=== PATIENT | female | born 1965 | race Caucasian/White ===

== ENCOUNTER 2018-12-20 12:41 | Emergency (ER) | payer MEDICARE, MEDICAID ==
[~2018-12-20] VITALS: Ht 165 cm; Wt 75.0 kg
--- NOTE | 2018-12-20 14:08 | ED GI ---
General Chief Complaint: Rect Problems Stated Complaint: BLOOD IN STOOL Nursing Triage Note: pt c/o one bloody stool this morning. pt had cardiac cath on saturday and was started on brilinta and aspirin. denies any pain at this time. Sepsis Screen: No Definite Risk Source of Information: Patient Exam Limitations: No Limitations History of Present Illness Date Seen by Provider: Dec 20, 2018 Time Seen by Provider: 13:32 Initial Comments Here with report of blood on the toilet paper after wiping after a bowel movement today. This has not happened before and she has not had persistent bleeding since. No blood in the stool but just on the toilet paper. Patient's mother reports that it seemed like quite a lot. The patient does have developmental disability. She recently underwent heart catheterization and was found to have some blockage and was started on Brilinta and aspirin. No abdominal pain. No nausea or vomiting. No other complaints. Timing/Duration: 1 Hour Severity/Quality: Mild Location: Other (rectal) Radiation: No Radiation Activities at Onset: None Modifying Factors: Worsens With Defecating; Improves With Resting Associated Symptoms: Denies Symptoms Allergies and Home Medications Allergies Coded Allergies: No Known Drug Allergies (Unverified , 12/20/18) Patient Home Medication List Home Medication List Reviewed: Yes Review of Systems Review of Systems Constitutional: see HPI; No chills, No fever Respiratory: No Symptoms Reported Cardiovascular: No Symptoms Reported Gastrointestinal: See HPI; Denies Diarrhea, Denies Nausea; Rectal Bleeding; Denies Vomiting Genitourinary: No Symptoms Reported All Other Systems Reviewed Negative Unless Noted: Yes Past Ghmummv-Uoomdl-Ysrijk Hx Past Med/Social Hx: Reviewed Nursing Past Med/Soc Hx Patient Social History Alcohol Use: Denies Use Recreational Drug Use: No Smoking Status: Never a Smoker Recent Foreign Travel: No Contact w/Someone Who Travel: No Recent Infectious Disease Expo: No Recent Hopitalizations: No Physical Abuse: No Sexual Abuse: No Mistreated: No Fear: No Immunizations Up To Date Tetanus Booster (TDap): Unknown Seasonal Allergies Seasonal Allergies: No Past Medical History Surgeries: Yes (PATENT DUCT, VENTRAL SEPTAL DEFECT) CABG, Hysterectomy Cardiac: Yes Heart Attack, High Cholesterol Family Medical History Reviewed Nursing Family Hx No Pertinent Family Hx Physical Exam Vital Signs Vital Signs - First Documented 12/20/18 13:18 Temp 36.8 Pulse 93 Resp 18 B/P (MAP) 109/70 (83) Pulse Ox 97 O2 Delivery Room Air Capillary Refill : Less Than 3 Seconds Height/Weight/BMI Height: '" Weight: lbs. oz. kg; 27.00 BMI Method: General Appearance: WD/WN, no apparent distress Neck: full range of motion, supple Respiratory: lungs clear, normal breath sounds Cardiovascular: no murmur, tachycardia Gastrointestinal: non tender, soft Extremities: non-tender, normal inspection Back: normal inspection, no CVA tenderness, no vertebral tenderness Neurologic/Psychiatric: alert, oriented x 3 Skin: normal color, warm/dry Progress/Results/Core Measures Results/Orders Lab Results Laboratory Tests Test 12/20/18 13:50 Range/Units White Blood Count 13.3 H 4.3-11.0 10^3/uL Red Blood Count 4.19 L 4.35-5.85 10^6/uL Hemoglobin 13.1 11.5-16.0 G/DL Hematocrit 40 35-52 % Mean Corpuscular Volume 96 80-99 FL Mean Corpuscular Hemoglobin 31 25-34 PG Mean Corpuscular Hemoglobin Concent 33 32-36 G/DL Red Cell Distribution Width 14.9 H 10.0-14.5 % Platelet Count 349 130-400 10^3/uL Mean Platelet Volume 11.4 H 7.4-10.4 FL Neutrophils (%) (Auto) 83 H 42-75 % Lymphocytes (%) (Auto) 10 L 12-44 % Monocytes (%) (Auto) 6 0-12 % Eosinophils (%) (Auto) 1 0-10 % Basophils (%) (Auto) 0 0-10 % Neutrophils # (Auto) 11.0 H 1.8-7.8 X 10^3 Lymphocytes # (Auto) 1.3 1.0-4.0 X 10^3 Monocytes # (Auto) 0.8 0.0-1.0 X 10^3 Eosinophils # (Auto) 0.1 0.0-0.3 10^3/uL Basophils # (Auto) 0.0 0.0-0.1 10^3/uL Sodium Level 138 135-145 MMOL/L Potassium Level 4.1 3.6-5.0 MMOL/L Chloride Level 98 98-107 MMOL/L Carbon Dioxide Level 25 21-32 MMOL/L Anion Gap 15 H 5-14 MMOL/L Blood Urea Nitrogen 17 7-18 MG/DL Creatinine 1.30 0.60-1.30 MG/DL Estimat Glomerular Filtration Rate 43 BUN/Creatinine Ratio 13 Glucose Level 98 70-105 MG/DL Calcium Level 9.8 8.5-10.1 MG/DL Corrected Calcium 9.7 8.5-10.1 MG/DL Total Bilirubin 0.9 0.1-1.0 MG/DL Aspartate Amino Transf (AST/SGOT) 22 5-34 U/L Alanine Aminotransferase (ALT/SGPT) 34 0-55 U/L Alkaline Phosphatase 157 H 40-136 U/L Total Protein 8.2 6.4-8.2 GM/DL Albumin 4.1 3.2-4.5 GM/DL My Orders Orders - JENNIFER NICHOLS MD Cbc With Automated Diff (12/20/18 14:05) Comprehensive Metabolic Panel (12/20/18 14:05) Ed Iv/Invasive Line Start (12/20/18 14:05) Lactated Ringers (Lr 1000 Ml Iv Solution (12/20/18 14:34) Lactated Ringers (Lr 1000 Ml Iv Solution (12/20/18 14:34) Medications Given in ED Current Medications Medications Dose Ordered Sig/Rama Route Start Time Stop Time Status Last Admin Dose Admin Lactated Ringer's 1,000 ml @ 0 mls/hr Q0M ONCE IV 12/20/18 14:34 12/20/18 14:35 DC 12/20/18 14:35 1,000 MLS/HR Vital Signs/I&O 12/20/18 13:18 Temp 36.8 Pulse 93 Resp 18 B/P (MAP) 109/70 (83) Pulse Ox 97 O2 Delivery Room Air Blood Pressure Mean: 83 POS Progress Progress Note : Progress Note Seen and evaluated. IV and labs ordered. LR 1 L bolus. I did do a rectal exam and there was blood at the rectum. There does appear to be a hemorrhoid on the perineal side of the rectal opening. This does seem to be the area were there is some blood. Not actively bleeding currently although there was some blood around the area that was old and some drying. No obvious findings on digital rectal exam including mass or pain. Gross blood noted that appeared to be from external. Monitor patient. 1445: Hemoglobin stable and normal. No other significant findings. She has not had persistent bleeding. She did have a small amount of blood on the toilet paper when she wiped after urinating but there was still some residual blood from earlier. She is not actively persistently bleeding. Monitor patient. 1545: No persistent bleeding currently. Discharged home with return precautions. Patient and family verbalize understanding of instructions and agreement with plan. I will send a copy of the chart to Dr. Small. Departure Impression Primary Impression: Hemorrhoids Qualified Codes: K64.9 - Unspecified hemorrhoids Disposition: HOME, SELF-CARE Condition: Improved Departure-Patient Inst. Referrals: TAY CEBALLOS MD FACP FAC CCDS NO,LOCAL PHYSICIAN (PCP) Primary Care Physician Patient Instructions: Gastrointestinal Bleeding (DC), Hemorrhoids Add. Discharge Instructions: All discharge instructions reviewed with patient and/or family. Voiced understanding. Use gentle wipes after bowel movements. You may use a sitz bath to spray the area clean. You may also just use a shower sprayer. Follow-up with Dr. Small for recheck and further evaluation. Call his office on Saturday for appointment. If bleeding worsens then return to the emergency department. You may have a little blood when wiping. If there is blood in the toilet or on the stool or your passing blood clots, return to the emergency department for further evaluation right away. Return for other concerns as needed. Copy Copies To 1: CORNELIUS SMALL TIMOTHY D MD Dec 20, 2018 14:08 POS
[2018-12-20 14:16] LABS: BASOPHILS % (AUTO) 0 % (0-10); EOSINOPHILS # (AUTO) 0.1 10^3/uL (0.0-0.3); EOSINOPHILS % (AUTO) 1 % (0-10); HEMATOCRIT 40 % (35-52); HEMOGLOBIN 13.1 G/DL (11.5-16.0); LYMPHOCYTES # (AUTO) 1.3 X 10^3 (1.0-4.0); LYMPHOCYTES % (AUTO) 10 % (12-44); MEAN CORPUSCULAR HEMOGLOBIN 31 PG (25-34); MEAN CORPUSCULAR HGB CONC 33 G/DL (32-36); MEAN CORPUSCULAR VOLUME 96 FL (80-99); MEAN PLATELET VOLUME 11.4 FL (7.4-10.4); MONOCYTES # (AUTO) 0.8 X 10^3 (0.0-1.0); MONOCYTES % (AUTO) 6 % (0-12); NEUTROPHILS % (AUTO) 83 % (42-75); PLATELET COUNT 349 10^3/uL (130-400); RED CELL DISTRIBUTION WIDTH 14.9 % (10.0-14.5); WHITE BLOOD COUNT 13.3 10^3/uL (4.3-11.0)
[2018-12-20 14:30] LABS: ALBUMIN 4.1 GM/DL (3.2-4.5); BILIRUBIN,TOTAL 0.9 MG/DL (0.1-1.0); CALCIUM 9.8 MG/DL (8.5-10.1); CREATININE SERUM 1.3 MG/DL (0.60-1.30); POTASSIUM 4.1 MMOL/L (3.6-5.0); TOTAL PROTEIN 8.2 GM/DL (6.4-8.2)
[2018-12-20] MEDS ORDERED: LACTATED RINGERS 1,000 ML IV ONE ×2 (14:34)
[2018-12-20 16:32] VITALS: BP 107/71
== END 2018-12-20 16:33 | disposition home or self-care (01) ==
LOC: ER 12:44
DX: K64.9 Unspecified hemorrhoids (principal); I25.2 Old myocardial infarction; E78.00 Pure hypercholesterolemia, unspecified; Z95.9 Presence of cardiac and vascular implant and graft, unspecified; Z90.710 Acquired absence of both cervix and uterus; Z95.1 Presence of aortocoronary bypass graft
CPT/HCPCS: 36415; 80053; 85025

== ENCOUNTER 2019-04-13 14:13 | Emergency (ER) | payer MEDICARE, MEDICAID ==
[~2019-04-13] VITALS: Ht 165.1 cm; Wt 72.1 kg
--- NOTE | 2019-04-13 14:32 | ED General ---
General Chief Complaint: Abdominal/GI Problems Stated Complaint: FEVER;VOMITING Nursing Triage Note: had a temp yesterday of 102 and was seen at [facility], no UTI or flu was found, would not eat last night or today, mom has concerns because pt has hx of [place] and is concerned for having stents in place along with a temp, is worried that pt is now having another [place] Nursing Sepsis Screen: Possible Sepsis Risk Source of Information: Patient Exam Limitations: No Limitations History of Present Illness Date Seen by Provider: Apr 13, 2019 Time Seen by Provider: 14:30 Initial Comments this 54-year-old MR patient presents to ER accompanied by mother with reports of fevers up to 102 yesterday. She was seen at [facility] last night with negative flu swab and normal urinalysis, mother is concerned that the fever is the result of a heart attack since she had one in December. She has had a significant cough according to mother. She denies chest pain Timing/Duration: 1-2 Days Severity: Moderate Associated Systoms: Cough Allergies and Home Medications Allergies Coded Allergies: No Known Drug Allergies (Unverified , 12/20/18) Patient Home Medication List Home Medication List Reviewed: Yes Review of Systems Review of Systems Constitutional: see HPI, fever EENTM: see HPI Respiratory: see HPI, cough Cardiovascular: no symptoms reported Genitourinary: no symptoms reported Musculoskeletal: no symptoms reported Skin: no symptoms reported Psychiatric/Neurological: No Symptoms Reported Past Cfevawr-Pwikya-Nshpoz Hx Patient Social History Alcohol Use: Denies Use Recreational Drug Use: No 2nd Hand Smoke Exposure: No Recent Foreign Travel: No Contact w/Someone Who Travel: No Recent Infectious Disease Expo: No Recent Hopitalizations: No Immunizations Up To Date Tetanus Booster (TDap): Unknown Seasonal Allergies Seasonal Allergies: No Past Medical History Surgeries: Yes (PATENT DUCT, VENTRAL SEPTAL DEFECT) CABG, Hysterectomy Cardiac: Yes Heart Attack, High Cholesterol Family Medical History No Pertinent Family Hx Physical Exam Vital Signs Vital Signs - First Documented 04/13/19 04/13/19 14:16 19:20 Temp 38.7 Pulse 96 Resp 18 B/P (MAP) 107/71 (83) Pulse Ox 100 O2 Delivery Room Air Capillary Refill : Less Than 3 Seconds Height, Weight, BMI Height: '" Weight: lbs. oz. kg; 26.00 BMI Method: General Appearance: No Apparent Distress, WD/WN Eyes: Bilateral Eye Normal Inspection, Bilateral Eye PERRL, Bilateral Eye EOMI HEENT: PERRL/EOMI, TMs Normal Neck: Full Range of Motion, Normal Inspection Respiratory: No Accessory Muscle Use, No Respiratory Distress Cardiovascular: Regular Rate, Rhythm, Normal Peripheral Pulses Gastrointestinal: Normal Bowel Sounds, Non Tender, Soft Extremity: Normal Inspection Neurologic/Psychiatric: Alert, Oriented x3 Skin: Normal Color, Warm/Dry Progress/Results/Core Measures Suspected Sepsis Recent Fever Within 48 Hours: Yes Infection Criteria Present: Suspected New Infection New/Unexplained Altered Menta: No Sepsis Screen: Possible Sepsis Risk SIRS Temperature: Pulse: 96 Respiratory Rate: 18 Laboratory Tests 04/13/19 14:45: White Blood Count 4.0L Blood Pressure 107 /71 Mean: 83 Laboratory Tests 04/13/19 14:45: Creatinine 1.32H, Platelet Count 149, Total Bilirubin 0.2 Results/Orders Lab Results Laboratory Tests Test 04/13/19 14:45 04/13/19 15:37 04/13/19 17:48 Range/Units White Blood Count 4.0 L 4.3-11.0 10^3/uL Red Blood Count 3.85 L 4.35-5.85 10^6/uL Hemoglobin 11.4 L 11.5-16.0 G/DL Hematocrit 36 35-52 % Mean Corpuscular Volume 94 80-99 FL Mean Corpuscular Hemoglobin 30 25-34 PG Mean Corpuscular Hemoglobin Concent 31 L 32-36 G/DL Red Cell Distribution Width 15.3 H 10.0-14.5 % Platelet Count 149 130-400 10^3/uL Mean Platelet Volume 12.2 H 7.4-10.4 FL Neutrophils (%) (Auto) 68 42-75 % Lymphocytes (%) (Auto) 25 12-44 % Monocytes (%) (Auto) 7 0-12 % Eosinophils (%) (Auto) 0 0-10 % Basophils (%) (Auto) 0 0-10 % Neutrophils # (Auto) 2.7 1.8-7.8 X 10^3 Lymphocytes # (Auto) 1.0 1.0-4.0 X 10^3 Monocytes # (Auto) 0.3 0.0-1.0 X 10^3 Eosinophils # (Auto) 0.0 0.0-0.3 10^3/uL Basophils # (Auto) 0.0 0.0-0.1 10^3/uL Sodium Level 136 135-145 MMOL/L Potassium Level 5.2 H 3.6-5.0 MMOL/L Chloride Level 105 98-107 MMOL/L Carbon Dioxide Level 23 21-32 MMOL/L Anion Gap 8 5-14 MMOL/L Blood Urea Nitrogen 17 7-18 MG/DL Creatinine 1.32 H 0.60-1.30 MG/DL Estimat Glomerular Filtration Rate 42 BUN/Creatinine Ratio 13 Glucose Level 92 70-105 MG/DL Calcium Level 9.2 8.5-10.1 MG/DL Corrected Calcium 9.1 8.5-10.1 MG/DL Total Bilirubin 0.2 0.1-1.0 MG/DL Aspartate Amino Transf (AST/SGOT) 36 H 5-34 U/L Alanine Aminotransferase (ALT/SGPT) 32 0-55 U/L Alkaline Phosphatase 154 H 40-136 U/L Troponin I < 0.028 < 0.028 <0.028 NG/ML Total Protein 7.6 6.4-8.2 GM/DL Albumin 4.1 3.2-4.5 GM/DL Urine Color YELLOW Urine Clarity CLEAR Urine pH 5.5 5-9 Urine Specific [place] 1.025 H 1.016-1.022 Urine Protein 1+ H NEGATIVE Urine Glucose (UA) NEGATIVE NEGATIVE Urine Ketones NEGATIVE NEGATIVE Urine Nitrite NEGATIVE NEGATIVE Urine Bilirubin NEGATIVE NEGATIVE Urine Urobilinogen 0.2 < = 1.0 MG/DL Urine Leukocyte Esterase NEGATIVE NEGATIVE Urine RBC (Auto) NEGATIVE NEGATIVE Urine RBC NONE /HPF Urine WBC RARE /HPF Urine Squamous Epithelial Cells 0-2 /HPF Urine Crystals PRESENT H /LPF Urine Amorphous Sediment RARE GAMALIEL URATES H /LPF Urine Bacteria FEW H /HPF Urine Casts NONE /LPF Urine Mucus SMALL H /LPF Urine Culture Indicated NO Micro Results Microbiology 04/13/19 Influenza Types A,B Antigen (ANA) - Final, Complete My Orders Orders - CANELO BHATT APRN Comprehensive Metabolic Panel (04/13/19 14:25) Troponin I (04/13/19 14:25) Ekg Tracing (04/13/19 14:25) Chest 1 View, Ap/Pa Only (04/13/19 14:25) Ua Culture If Indicated (04/13/19 14:25) Cbc With Automated Diff (04/13/19 14:59) Acetaminophen Tablet (Tylenol Tablet) (04/13/19 15:00) Ekg Tracing (04/13/19 15:55) Ns Iv 500 Ml (Sodium Chloride 0.9%) (04/13/19 16:15) Troponin I (04/13/19 17:32) Ns Iv 500 Ml (Sodium Chloride 0.9%) (04/13/19 18:30) Medications Given in ED Vital Signs/I&O Capillary Refill : Less Than 3 Seconds Blood Pressure Mean: 83 Diagnostic Imaging Diagonstic Imaging: Xray Plain Films/CT/US/NM/MRI: chest Comments NAME: GOLDIE PARKER MED REC#: [id number] PT STATUS: REG ER : 1965 PHYSICIAN: CANELO BHATT APRN ADMIT DATE: 04/13/19/ER Draft Date of Exam:04/13/19 CHEST 1 VIEW, AP/PA ONLY INDICATION: Fever and vomiting. Portable chest at 03:04 p.m. FINDINGS: Heart size and pulmonary vascularity are normal. Lungs are clear. There are no effusions or pneumothoraces. IMPRESSION: Negative chest. Dictated on workstation # [id number] Dict: 04/13/19 1516 Trans: 04/13/19 1531 [id number] Interpreted by: JENNIFER DOBSON MD Electronically signed by: NAME: GOLDIE PARKER MED REC#: [id number] PT STATUS: REG ER : 1965 PHYSICIAN: CANELO BHATT APRN ADMIT DATE: 04/13/19/ER Draft Date of Exam:04/13/19 CHEST 1 VIEW, AP/PA ONLY INDICATION: Fever and vomiting. Portable chest at 03:04 p.m. FINDINGS: Heart size and pulmonary vascularity are normal. Lungs are clear. There are no effusions or pneumothoraces. IMPRESSION: Negative chest. Dictated on workstation # [id number] Dict: 04/13/19 1516 Trans: 04/13/19 1531 [id number] Interpreted by: JENNIFER DOBSON MD Electronically signed by: Departure Communication (Admissions) [id number] have obtained a previous EKG from Kathy Jones 02/06/19 there are no significant changes on today's EKG compared to that, there is a bit more pronounced ST segment depression V4-v6. The troponin is negative. I sent the pictures to Dr. Marcano, he has reviewed them and doesn't feel this is a significant change, I will repeat a 3 hour troponin, if still negative discharged home. She does have a viral syndrome most likely is the cause of her febrile illness. Impression Primary Impression: Viral syndrome Additional Impression: Coronary artery disease Qualified Codes: I25.10 - Atherosclerotic heart disease of [place] coronary artery without angina pectoris Disposition: HOME, SELF-CARE Condition: Stable Departure-Patient Inst. Decision time for Depature: 16:12 Referrals: NO,LOCAL PHYSICIAN (PCP/Family) Primary Care Physician Patient Instructions: VIRAL SYNDROME Add. Discharge Instructions: 1. Use Tylenol for pain or fever control 2. Return to ER for any concerns All discharge instructions reviewed with patient and/or family. Voiced understanding. CANELO BHATT APRN Apr 13, 2019 14:32
[2019-04-13] MEDS ORDERED: ACETAMINOPHEN 500 MG TAB (TYLENOL) PO ONE (15:00)
[2019-04-13 15:08] LABS: BASOPHILS % (AUTO) 0 % (0-10); EOSINOPHILS % (AUTO) 0 % (0-10); HEMATOCRIT 36 % (35-52); HEMOGLOBIN 11.4 G/DL (11.5-16.0); LYMPHOCYTES % (AUTO) 25 % (12-44); MEAN CORPUSCULAR HEMOGLOBIN 30 PG (25-34); MEAN CORPUSCULAR HGB CONC 31 G/DL (32-36); MEAN CORPUSCULAR VOLUME 94 FL (80-99); MEAN PLATELET VOLUME 12.2 FL (7.4-10.4); MONOCYTES # (AUTO) 0.3 X 10^3 (0.0-1.0); MONOCYTES % (AUTO) 7 % (0-12); NEUTROPHILS # (AUTO) 2.7 X 10^3 (1.8-7.8); NEUTROPHILS % (AUTO) 68 % (42-75); PLATELET COUNT 149 10^3/uL (130-400); RED CELL DISTRIBUTION WIDTH 15.3 % (10.0-14.5)
[2019-04-13 15:22] LABS: ALANINE AMINOTRANSFERASE 32 U/L (0-55); ALBUMIN 4.1 GM/DL (3.2-4.5); ALKALINE PHOSPHATASE 154 U/L (40-136); BILIRUBIN,TOTAL 0.2 MG/DL (0.1-1.0); BUN/CREATININE RATIO 13; CALCIUM 9.2 MG/DL (8.5-10.1); CARBON DIOXIDE 23 MMOL/L (21-32); CHLORIDE 105 MMOL/L (98-107); CREATININE SERUM 1.32 MG/DL (0.60-1.30); GFR ESTIMATED 42; GLUCOSE 92 MG/DL (70-105); POTASSIUM 5.2 MMOL/L (3.6-5.0); SODIUM 136 MMOL/L (135-145); TOTAL PROTEIN 7.6 GM/DL (6.4-8.2)
--- NOTE | 2019-04-13 15:32 | Diagnostic Imaging Report ---
INDICATION: Fever and vomiting. Portable chest at 03:04 p.m. FINDINGS: Heart size and pulmonary vascularity are normal. Lungs are clear. There are no effusions or pneumothoraces. IMPRESSION: Negative chest. Dictated by: Dictated on workstation # [id number]
[2019-04-13 15:51] LABS: BILIRUBIN,URINE NEGATIVE (NEGATIVE); CLARITY,URINE CLEAR; COLOR,URINE YELLOW; GLUCOSE, URINE (UA) NEGATIVE (NEGATIVE); KETONES,URINE NEGATIVE (NEGATIVE); LEUKOCYTE ESTERASE ,URINE NEGATIVE (NEGATIVE); NITRITE,URINE NEGATIVE (NEGATIVE); PH,URINE 5.5 (5-9); PROTEIN,URINE 1+ (NEGATIVE)
[2019-04-13 16:08] LABS: BACTERIA,URINE FEW /HPF; WBC,URINE RARE /HPF
[2019-04-13 16:09] LABS: AMORPHOUS SEDIMENT,UR RARE AMOR URATES /LPF; SQUAMOUS EPITHELIAL CELL,UR 0-2 /HPF
[2019-04-13] MEDS ORDERED: NS IV 500 ML 500 ML IV SCH ×2 (16:15→18:30)
[2019-04-13 19:20] VITALS: BP 98/76
== END 2019-04-13 19:20 | disposition home or self-care (01) ==
LOC: EDUNIT# 14:13 → ER 14:14
DX: B34.9 Viral infection, unspecified (principal); I25.10 Atherosclerotic heart disease of native coronary artery without angina pectoris; I25.2 Old myocardial infarction; Z95.1 Presence of aortocoronary bypass graft
CPT/HCPCS: 36415; 71045; 80053; 81000; 84484; 85025; 87804; 93005

== ENCOUNTER 2019-04-19 12:00 | Inpatient (IN) | payer MEDICARE, MEDICAID ==
[2019-04-19] VITALS (13 sets, daily range): BP systolic 88–136; BP diastolic 50–84
[~2019-04-19] VITALS: Ht 160 cm; Wt 95.2 kg
[2019-04-19] MEDS ORDERED: APAP 325 MG/10.15 ML LIQ (TYLENOL) UDC PO STA (12:14)
[2019-04-19] MEDS ORDERED: ONDANSETRON 4 MG/2 ML (SDV) Z0FRAN IVP ONE (12:15)
[2019-04-19] MEDS ORDERED: LACTATED RINGERS IV PRN (12:15)
[2019-04-19 12:26] LABS: BASOPHILS % (AUTO) 0 % (0-10); EOSINOPHILS % (AUTO) 0 % (0-10); HEMATOCRIT 36 % (35-52); HEMOGLOBIN 11.8 G/DL (11.5-16.0); LYMPHOCYTES % (AUTO) 14 % (12-44); MEAN CORPUSCULAR HEMOGLOBIN 30 PG (25-34); MEAN CORPUSCULAR HGB CONC 33 G/DL (32-36); MEAN CORPUSCULAR VOLUME 91 FL (80-99); MEAN PLATELET VOLUME 13.2 FL (7.4-10.4); MONOCYTES # (AUTO) 0.3 X 10^3 (0.0-1.0); MONOCYTES % (AUTO) 4 % (0-12); NEUTROPHILS # (AUTO) 5.4 X 10^3 (1.8-7.8); NEUTROPHILS % (AUTO) 81 % (42-75); PLATELET COUNT 108 10^3/uL (130-400); RED CELL DISTRIBUTION WIDTH 15.6 % (10.0-14.5); WHITE BLOOD COUNT 6.6 10^3/uL (4.3-11.0)
--- NOTE | 2019-04-19 12:28 | ED General ---
General Chief Complaint: General Problems/Pain Stated Complaint: SOB/FEVER Nursing Triage Note: PT BROUGHT IN BY WHEELCHAIR BY MOM WITH COMPLAINT OF NOT EATING AND DRINKNING.PT WAS SEEN HERE LAST WEEK AND DIAGNOSED WITH VIRUS. 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 She apparently had febrile illness starting 8-9 days ago and was seen at [place]. She was diagnosed with viral illness that persisted after onset was seen here last Saturday, 6 days ago. Workup at that point also revealed only concerns for probable viral illness that was not influenza. Patient was discharged home. She's had varying levels illness throughout the week but worse over the last 2 days. Patient's mother reports that she has had nausea and vomiting with each by mouth intake over the last 24 hours and she is not even taken her morning meds because of vomiting. Patient complains of allover body pain and not feeling well. Timing/Duration: 1 Week, Changing Over Time, Getting Worse Severity: Moderate Associated Systoms: No Chest Pain; Cough, Fever/Chills; No Headaches; Nausea/Vomiting, Shortness of Air, Weakness Allergies and Home Medications Allergies Coded Allergies: No Known Drug Allergies (Unverified , 12/20/18) Patient Home Medication List Home Medication List Reviewed: Yes Review of Systems Review of Systems Constitutional: see HPI, chills, fever, weakness EENTM: see HPI, nose congestion Respiratory: cough, short of breath Cardiovascular: No chest pain, No palpitations Gastrointestinal: No abdominal pain; nausea, vomiting Genitourinary: No dysuria, No pain Musculoskeletal: muscle pain; No neck pain Skin: no symptoms reported Psychiatric/Neurological: Emotional Problems; Denies Headache All Other Systems Reviewed Negative Unless Noted: Yes Past Cjpzitf-Zyscuq-Movinp Hx Past Med/Social Hx: Reviewed Nursing Past Med/Soc Hx Patient Social History Alcohol Use: Denies Use Recreational Drug Use: No Smoking Status: Never a Smoker 2nd Hand Smoke Exposure: No Recent Foreign Travel: No Contact w/Someone Who Travel: No Recent Infectious Disease Expo: No Recent Hopitalizations: No Immunizations Up To Date Tetanus Booster (TDap): Unknown Seasonal Allergies Seasonal Allergies: No Past Medical History Surgeries: Yes (PATENT DUCT, VENTRAL SEPTAL DEFECT) CABG, Hysterectomy Cardiac: Yes Heart Attack, High Cholesterol Family Medical History Reviewed Nursing Family Hx No Pertinent Family Hx Physical Exam-Suspected Sepsis Physical Exam Vital Signs Vital Signs - First Documented 04/19/19 04/19/19 12:00 15:51 Temp 38.0 Pulse 109 Resp 20 B/P (MAP) 92/47 (62) Pulse Ox 99 O2 Delivery Room Air O2 Flow Rate 2.00 Capillary Refill : Less Than 3 Seconds Blood Pressure Mean: 62 Height, Weight, BMI Height: '" Weight: lbs. oz. kg; 28.00 BMI Method: General Appearance: WD/WN, Mild Distress HEENT: PERRL/EOMI, Pharyngeal Erythema, Other (dry mucous membranes. Bilateral rhinorrhea) Neck: Non Tender Respiratory: Crackles (few basilar), Other (coarse cough) Cardiovascular: No Murmur, Tachycardia Gastrointestinal: Non Tender, Soft Back: Normal Inspection, No CVA Tenderness, No Vertebral Tenderness Extremity: Normal Range of Motion, Non Tender Neurologic/Psychiatric: Alert, No Motor/Sensory Deficits Skin: normal color, warm/dry Focused Exam Lactate Level 04/19/19 12:10: Lactic Acid Level 2.71*H 04/19/19 16:09: Lactic Acid Level 0.79 Lactic Acid Level Laboratory Tests Test 04/19/19 16:09 Lactic Acid Level 0.79 MMOL/L (0.50-2.00) Procedures/Interventions Patient Education: Explained Benefits, Explained Risks, Pt. Ack. Understanding (family) Agreement on procedure with pt: Yes Breath Sounds per Auscultation: Crackles (. Basilar) Heart Sounds per Auscultation: Regular Airway Exam: Mouth opens >2 fingers, Neck Full Range of Motion, Visulation of Uvula Sedation Adminstration Time: 15:50 Total Time spent in CS 20 min Conscious sedation for central line placement in patient with no retardation. Central line by Dr. Howe with conscious sedation controlled by me. Initiated with Versed 2.5 mg IV and fentanyl 50 g IV. Repeat Versed 2.5 mg IV given. Tolerated sedation well without hypoxia or hypercapnia. Had continued hypotension but was controlled with Levophed. Otherwise no adverse effects. Procedure complete by 1615 Progress/Results/Core Measures Suspected Sepsis Recent Fever Within 48 Hours: No Infection Criteria Present: None New/Unexplained Altered Menta: No Sepsis Screen: No Definite Risk SIRS Temperature: Pulse: 109 Respiratory Rate: 20 Laboratory Tests 04/19/19 12:10: White Blood Count 6.6 Blood Pressure 92 /47 Mean: 62 04/19/19 12:10: Lactic Acid Level 2.71*H 04/19/19 16:09: Lactic Acid Level 0.79 Laboratory Tests 04/19/19 12:10: Creatinine 1.70H, INR Comment 1.0, Platelet Count 108L, Total Bilirubin 0.3 Results/Orders Lab Results Laboratory Tests Test 04/19/19 12:10 04/19/19 14:03 04/19/19 16:09 Range/Units White Blood Count 6.6 4.3-11.0 10^3/uL Red Blood Count 3.96 L 4.35-5.85 10^6/uL Hemoglobin 11.8 11.5-16.0 G/DL Hematocrit 36 35-52 % Mean Corpuscular Volume 91 80-99 FL Mean Corpuscular Hemoglobin 30 25-34 PG Mean Corpuscular Hemoglobin Concent 33 32-36 G/DL Red Cell Distribution Width 15.6 H 10.0-14.5 % Platelet Count 108 L 130-400 10^3/uL Mean Platelet Volume 13.2 H 7.4-10.4 FL Neutrophils (%) (Auto) 81 H 42-75 % Lymphocytes (%) (Auto) 14 12-44 % Monocytes (%) (Auto) 4 0-12 % Eosinophils (%) (Auto) 0 0-10 % Basophils (%) (Auto) 0 0-10 % Neutrophils # (Auto) 5.4 1.8-7.8 X 10^3 Lymphocytes # (Auto) 1.0 1.0-4.0 X 10^3 Monocytes # (Auto) 0.3 0.0-1.0 X 10^3 Eosinophils # (Auto) 0.0 0.0-0.3 10^3/uL Basophils # (Auto) 0.0 0.0-0.1 10^3/uL Prothrombin Time 13.0 12.2-14.7 SEC INR Comment 1.0 0.8-1.4 Activated Partial Thromboplast Time 41 H 24-35 SEC Sodium Level 136 135-145 MMOL/L Potassium Level 5.4 H 3.6-5.0 MMOL/L Chloride Level 104 98-107 MMOL/L Carbon Dioxide Level 19 L 21-32 MMOL/L Anion Gap 13 5-14 MMOL/L Blood Urea Nitrogen 28 H 7-18 MG/DL Creatinine 1.70 H 0.60-1.30 MG/DL Estimat Glomerular Filtration Rate 31 BUN/Creatinine Ratio 16 Glucose Level 108 H 70-105 MG/DL Lactic Acid Level 2.71 *H 0.79 0.50-2.00 MMOL/L Calcium Level 9.1 8.5-10.1 MG/DL Corrected Calcium 9.3 8.5-10.1 MG/DL Total Bilirubin 0.3 0.1-1.0 MG/DL Aspartate Amino Transf (AST/SGOT) 144 H 5-34 U/L Alanine Aminotransferase (ALT/SGPT) 81 H 0-55 U/L Alkaline Phosphatase 147 H 40-136 U/L Troponin I 0.073 H <0.028 NG/ML Total Protein 7.5 6.4-8.2 GM/DL Albumin 3.7 3.2-4.5 GM/DL Urine Color YELLOW Urine Clarity SL CLOUDY Urine pH 6.0 5-9 Urine Specific [place] 1.025 H 1.016-1.022 Urine Protein 2+ H NEGATIVE Urine Glucose (UA) NEGATIVE NEGATIVE Urine Ketones NEGATIVE NEGATIVE Urine Nitrite NEGATIVE NEGATIVE Urine Bilirubin NEGATIVE NEGATIVE Urine Urobilinogen 0.2 < = 1.0 MG/DL Urine Leukocyte Esterase NEGATIVE NEGATIVE Urine RBC (Auto) 1+ H NEGATIVE Urine RBC 0-2 /HPF Urine WBC NONE /HPF Urine Squamous Epithelial Cells NONE /HPF Urine Crystals NONE /LPF Urine Amorphous Sediment FEW GAMALIEL URATES H /LPF Urine Bacteria NEGATIVE /HPF Urine Casts PRESENT /LPF Urine Granular Casts 10-25 H /LPF Urine Mucus NEGATIVE /LPF Urine Culture Indicated NO Micro Results Microbiology 04/19/19 Influenza Types A,B Antigen (ANA) - Final, Complete My Orders Orders - JENNIFER NICHOLS MD Cbc With Automated Diff (04/19/19 12:14) Comprehensive Metabolic Panel (04/19/19 12:14) Blood Culture (04/19/19 12:14) Sputum Culture (04/19/19 12:14) Urinalysis (04/19/19 12:14) Urine Culture (04/19/19 12:14) Protime With Inr (04/19/19 12:14) Partial Thromboplastin Time (04/19/19 12:14) Chest 1 View, Ap/Pa Only (04/19/19 12:14) Acetaminophen Tablet (Tylenol Tablet) (04/19/19 12:15) Ed Iv/Invasive Line Start (04/19/19 12:14) Ed Iv/Invasive Line Start (04/19/19 12:14) Vital Signs Adult Sepsis Patie Q15M (04/19/19 12:14) O2 (04/19/19 12:14) Remove Rings In Anticipation O (04/19/19 12:14) Lactic Acid Analyzer (04/19/19 12:14) Influenza A And B Antigens (04/19/19 12:14) Lactated Ringers (Lr 1000 Ml Iv Solution (04/19/19 12:15) Acetaminophen Oral Solution (Tylenol Ora (04/19/19 12:14) Ondansetron Injection (Zofran Injectio (04/19/19 12:15) Acetaminophen Tablet/Caplet (Tylenol T (04/19/19 12:35) Ekg Tracing (04/19/19 13:18) Catheter(Urinary) Insert & Ass 03,15 (04/19/19 13:58) Troponin I (04/19/19 13:58) Piperacillin Sodium/Tazobactam (Zosyn Vi (04/19/19 15:15) Lactated Ringers (Lr 1000 Ml Iv Solution (04/19/19 15:30) Midazolam Injection (Versed Injection) (04/19/19 15:39) Fentanyl Injection (Sublimaze Injection (04/19/19 15:39) Norepinephrine 4 Mg/250 Ml (Norepinephri (04/19/19 15:45) Norepinephrine 4 Mg/250 Ml (Norepinephri (04/19/19 15:40) Chest 1 View, Ap/Pa Only (04/19/19 16:06) Medications Given in ED Current Medications Medications Dose Ordered Sig/Rama Route Start Time Stop Time Status Last Admin Dose Admin Acetaminophen 325 mg STK-MED ONCE .ROUTE 04/19/19 12:35 04/19/19 12:42 DC 04/19/19 12:45 650 MG Lactated Ringer's 2,163 ml @ 2,163 mls/hr PRN PRN IV 3/8/20 12:15 04/19/19 12:46 2,163 MLS/HR Ondansetron HCl 4 mg ONCE ONCE IVP 04/19/19 12:15 04/19/19 12:18 DC 04/19/19 12:43 4 MG Piperacillin Sod/ Tazobactam Sod 4.5 gm/Sodium Chloride 100 ml @ 200 mls/hr ONCE ONCE IV 04/19/19 15:15 04/19/19 15:44 DC 04/19/19 15:31 200 MLS/HR Vital Signs/I&O 04/19/19 04/19/19 04/19/19 12:00 15:51 16:05 Temp 38.0 Pulse 109 86 Resp 20 B/P (MAP) 92/47 (62) 79/48 Pulse Ox 99 91 O2 Delivery Room Air Nasal Cannula O2 Flow Rate 2.00 Capillary Refill : Less Than 3 Seconds Blood Pressure Mean: 62 Progress Note : Progress Note Seen and evaluated on arrival. Initial blood pressure less than 65. Repeat blood pressure with that greater than 65 and systolic just above 90. We will go ahead and initiate sepsis protocol order set with LR 30 milliliter per kilogram bolus. Acetaminophen 650 mg by mouth. Monitor patient. 1400: Patient had persistent episodes of hypotension with blood pressure less than 90 systolic despite fluids. She is mentating at her normal self. Mother states that since she's had her heart attack, patient has had low blood pressure in the 90s and maybe even a little lower occasionally. Heart attack occurred approximately 3-4 months ago and they are evaluating her for CABG at some point potentially but are trying to determine genetic abnormality of cardiac vessels. 1538: Patient will be admitted. Zosyn 4.5 g IV ordered. I did discuss the case with Dr. Watkins and he accepts patient for admission, inpatient status for concerns for right lower lobe pneumonia and hypotension/septic shock. Patient did receive 5 on fluid resuscitation and we will pursue Levophed administration if not improved with continued fluids. I have Discussed the case with Dr. Spencer who accepts patient in consult. I have also discussed the case with Dr. Howe who will assist with placement of central line while I'll do conscious sedation. All risk and benefits discussed with patient's family who verbally agree to sedation for central line placement. Patient require sedation due to MR status and inability to hold still while line is placed. She needs the line for septic shock and fluid volume resuscitation and/or pressors. 1615: Line placed and sedation complete. 1630: I discussed the case with Dr. Marcano and he accepts patient in consult due to the slightly elevated troponin. I have ordered request for records from [place] for heart catheter. We will continue Brilinta BID. I did discuss the placement of the line with Dr. Howe and we will go ahead and use the line. Dr. Specner was updated. Family updated and agrees with plan. 1640: Patient to go to ICU. I attest a focused exam at this time. Blood pressure improved on Levophed at 0.1 mcg/kg/m. ECG Initial ECG Impression Date: Apr 19, 2019 Initial ECG Impression Time: 13:52 Initial ECG Rate: 105 Initial ECG Rhythm: S.Tach Comment Sinus tachycardia with incomplete right bundle branch block. Anteroseptal infarct that is old and compares to 04/13/19 without significant changes. No evidence of ST elevation DC. Interpreted by me. Diagnostic Imaging Diagonstic Imaging: Xray Plain Films/CT/US/NM/MRI: chest Comments NAME: GOLDIE PARKER [facility] REC#: [id number] PT STATUS: REG ER : 1965 PHYSICIAN: JENNIFER NICHOLS MD ADMIT DATE: 04/19/19/ER Draft Date of Exam:04/19/19 CHEST 1 VIEW, AP/PA ONLY INDICATION: Not eating and drinking. Viral illness. Comparison made with the prior study from 04/13/2019. FINDINGS: Heart size is unchanged. Compared to the prior examination there are no findings to suggest edema or failure. There is no effusion. There is some questionable patchy alveolar opacity at the right lung base. Minimal right basilar atelectasis or infiltrate cannot be excluded. There is no pneumothorax. IMPRESSION: Questionable mild right basilar atelectasis or infiltrate. Dictated on workstation # [id number] Dict: 04/19/19 1304 Trans: 04/19/19 1315 [facility] [id number] Interpreted by: RENNY LOZANO MD Electronically signed by: Diagonstic Imaging: Xray Plain Films/CT/US/NM/MRI: chest Comments [facility] [place], [place] NAME: GOLDIE PARKER [facility] REC#: [id number] PT STATUS: ADM IN : 1965 PHYSICIAN: JENNIFER NICHOLS MD ADMIT DATE: 04/19/19/ICU Signed Date of Exam:04/19/19 CHEST 1 VIEW, AP/PA ONLY INDICATION: Evaluate line placement. FINDINGS: There is now a left internal jugular catheter in place. This however crosses the midline and likely has its tip in the right subclavian vein. There is some cardiomegaly and venous congestion. There is no pleural effusion or pneumothorax. Mediastinum is unremarkable. IMPRESSION: Abnormal placement of a left internal jugular central venous catheter as described. Cardiomegaly and mild central pulmonary venous congestion. Dictated by: Dictated on workstation # [id number] Dict: 04/19/19 1631 Trans: 04/19/19 1640 [facility] [id number] Interpreted by: KANA SENIOR MD Electronically signed by: KANA SENIOR MD 04/19/19 1640 Departure Communication (Admissions) Time/Spoke to Admitting Phy: 15:30 Time/Spoke to Consulting Phy: 15:38 Impression Primary Impression: Septic shock Additional Impressions: Right lower lobe pneumonia Qualified Codes: J18.1 - Lobar pneumonia, unspecified organism Volume depletion, gastrointestinal loss Disposition: ADMITTED INPATIENT Condition: Critical Admissions Decision to Admit Reason: Admit from ER (General) Decision to Admit/Date: Apr 19, 2019 Time/Decision to Admit Time: 15:30 Departure-Patient Inst. Referrals: NO,LOCAL PHYSICIAN (PCP/Family) Primary Care Physician JENNIFER NICHOLS MD Apr 19, 2019 12:28
[2019-04-19] MEDS ORDERED: ACETAMINOPHEN 325 MG TABLET ONE (12:35)
[2019-04-19 12:47] LABS: ALBUMIN 3.7 GM/DL (3.2-4.5); BILIRUBIN,TOTAL 0.3 MG/DL (0.1-1.0); CALCIUM 9.1 MG/DL (8.5-10.1); CREATININE SERUM 1.7 MG/DL (0.60-1.30); POTASSIUM 5.4 MMOL/L (3.6-5.0); TOTAL PROTEIN 7.5 GM/DL (6.4-8.2)
[2019-04-19] MEDS: ACETAMINOPHEN 500 MG TAB (TYLENOL) PO PRN (12:57)
--- NOTE | 2019-04-19 13:15 | Diagnostic Imaging Report ---
INDICATION: Not eating and drinking. Viral illness. Comparison made with the prior study from 04/13/2019. FINDINGS: Heart size is unchanged. Compared to the prior examination there are no findings to suggest edema or failure. There is no effusion. There is some questionable patchy alveolar opacity at the right lung base. Minimal right basilar atelectasis or infiltrate cannot be excluded. There is no pneumothorax. IMPRESSION: Questionable mild right basilar atelectasis or infiltrate. Dictated by: Dictated on workstation # [id number]
[2019-04-19 14:14] LABS: BILIRUBIN,URINE NEGATIVE (NEGATIVE); CLARITY,URINE SL CLOUDY; COLOR,URINE YELLOW; GLUCOSE, URINE (UA) NEGATIVE (NEGATIVE); KETONES,URINE NEGATIVE (NEGATIVE); LEUKOCYTE ESTERASE ,URINE NEGATIVE (NEGATIVE); NITRITE,URINE NEGATIVE (NEGATIVE); PROTEIN,URINE 2+ (NEGATIVE)
[2019-04-19 14:21] LABS: BACTERIA,URINE NEGATIVE /HPF; RBC,URINE 0-2 /HPF
[2019-04-19 14:22] LABS: AMORPHOUS SEDIMENT,UR FEW AMOR URATES /LPF
[2019-04-19] MEDS ORDERED: PIPERACILLIN SODIUM/TAZOBACTAM 4.5 GM in NS (IVPB) 100 ML IV ONE (15:15)
[2019-04-19] MEDS: LACTATED RINGERS 1,000 ML IV SCH ×4 (15:31→23:42)
[2019-04-19] MEDS ORDERED: fentaNYL INJECTION 100 MCG/2 ML AMP ONE (15:39)
[2019-04-19] MEDS ORDERED: MIDAZOLAM 5 MG/5 ML (VERSED) VIAL ONE (15:39)
[2019-04-19] MEDS ORDERED: NOREPINEPHRINE 4 MG/250 ML 250 ML IV ONE (15:40)
--- NOTE | 2019-04-19 15:50 | NUR ---
1550- BP 80/62, HR 98, RR 21, O2 99% RA, ECO2 33. TIME OUT PERFORMED. DR NICHOLS AND DR POP AT BEDSIDE TO PERFORM CENTRAL LINE PLACEMENT UNDER CONSCIOUS SEDATION. CONSENT SIGNED BY PTS PARENT. 1550- VERSED 2.5 MG AND FENTANYL 50MCG ADMINISTERED 1551- NC3L PLACED ON PT AT THIS TIME 1555- VERSED 2.5 MG ADMINISTERED 1555- HR 90, RR 18, BP 71/41, 100% 3LNC. 1605- HR 84, RR 20, BP 83/64, 99% 3LNC, CO2 30. LEVOPHED DRIP STARTED @ 0.1MCG/KG/MIN INITIATED PER DR NICHOLS 1615- HR 80, RR 23, BP 92/58, O2 99% NC2L. 1630- HR 79, RR 21, BP 95/59, 99% 2LNC. 1640- PT IS ALERT AND TALKING. VSS.
[2019-04-19] MEDS: NOREPINEPHRINE 4 MG/250 ML 250 ML IV SCH ×2 (16:05→22:09)
--- NOTE | 2019-04-19 16:37 | Diagnostic Imaging Report ---
INDICATION: Evaluate line placement. FINDINGS: There is now a left internal jugular catheter in place. This however crosses the midline and likely has its tip in the right subclavian vein. There is some cardiomegaly and venous congestion. There is no pleural effusion or pneumothorax. Mediastinum is unremarkable. IMPRESSION: Abnormal placement of a left internal jugular central venous catheter as described. Cardiomegaly and mild central pulmonary venous congestion. Dictated by: Dictated on workstation # [id number]
--- NOTE | 2019-04-19 18:22 | NUR ---
SEPSIS VITALS CHARTED EVERY 15 MIN BY THIS RN - UNDER VITAL SIGNS INTERVENTION
[2019-04-19] MEDS: PIPERACILLIN/TAZO 4.5 GM/NS 100 ML IV SCH ×2 (20:31)
[2019-04-19] MEDS: ENOXAPARIN 40 MG/0.4 ML (LOVENOX) SYR SQ SCH (20:32)
[2019-04-19] MEDS: TICAGRELOR 90 MG TABLET (BRILINTA) PO SCH (20:32)
[2019-04-19] MEDS: inSUlin ASPART (NovoLOG) 1 UNIT/0.01 ML (CHARGE PER UNIT) SQ SCH (20:32)
[2019-04-20] VITALS (24 sets, daily range): BP systolic 91–142; BP diastolic 55–110
[2019-04-20] MEDS: LACTATED RINGERS 1,000 ML IV SCH ×10 (00:07→23:36)
--- NOTE | 2019-04-20 00:07 | OPERATIVE REPORT ---
DATE OF SERVICE: PREOPERATIVE DIAGNOSIS: Venous insufficiency Hypotension POSTOPERATIVE DIAGNOSIS: Venous insufficiency Hypotension PROCEDURE: Insertion of triple lumen catheter with conscious sedation. SURGEON: Chetna Howe DO SUPERVISING PRODUCER: Dewey to do that conscious sedation. ANESTHESIA: Conscious sedation. BLOOD LOSS: Scant. FLUIDS: None. SPECIMENS: None. INDICATION FOR PROCEDURE: The patient is a 54-year-old female, who is hypotensive and needs IV access because of some venous insufficiency. She has mentally handicapped and could not do this without some conscious sedation. FINDINGS: The patient had a catheter placed left IJ under ultrasound guidance. PROCEDURE NOTE: After informed consent was obtained from the mother, the patient was in the ER bed, and sterilely prepped and draped in normal fashion, placed slightly Trendelenburg. She had a large internal jugular vein and able to easily see this on ultrasound and then using an 18-gauge after infiltrated the skin with local and then advanced an 18-gauge needle with ultrasound and watched it go into the vein, good flash of blood, removed the syringe and then placed a guidewire down the needle using Seldinger technique, it went in, but seems did not go all the way in, we try to get the catheter to go in, it would not go in and then actually fell out, so I was able to re-access again on the first attempt, able to get in and then placed the guidewire down the needle using Seldinger technique and then removed the needle and then over the guidewire, had dilated and then made a stab incision with a #11 blade and then advanced the catheter, able to get the catheter to advance into about 17 cm. At this point, I removed the guidewire and then sutured this in place with 3-0 silk suture on a Chriss needle leaving about 2 or 3 cm outside the skin, had placed caps on the each port, able to aspirate in the proximal and superior port, but not in the distal port, but able to flush in 3 all ports. Area was cleaned and dried and a sterile dressing was placed. The patient tolerated the procedure with conscious sedation. Did not have any difficulty. Chest x-ray was ordered. Job ID: [id number] DocumentID: [id number] Dictated Date: 04/19/2019 16:20:32 Senior Mechanical Estimator Date: 04/20/2019 00:06:46 Dictated By: CHETNA HOWE DO MET[facility] H[facility] CENTERKacie
[2019-04-20 03:59] LABS: BASOPHILS % (AUTO) 0 % (0-10); EOSINOPHILS # (AUTO) 0.1 10^3/uL (0.0-0.3); EOSINOPHILS % (AUTO) 1 % (0-10); HEMATOCRIT 29 % (35-52); HEMOGLOBIN 9.5 G/DL (11.5-16.0); LYMPHOCYTES # (AUTO) 0.7 X 10^3 (1.0-4.0); LYMPHOCYTES % (AUTO) 14 % (12-44); MEAN CORPUSCULAR HEMOGLOBIN 30 PG (25-34); MEAN CORPUSCULAR HGB CONC 33 G/DL (32-36); MEAN CORPUSCULAR VOLUME 91 FL (80-99); MEAN PLATELET VOLUME 12.4 FL (7.4-10.4); MONOCYTES # (AUTO) 0.2 X 10^3 (0.0-1.0); MONOCYTES % (AUTO) 3 % (0-12); NEUTROPHILS # (AUTO) 4.3 X 10^3 (1.8-7.8); NEUTROPHILS % (AUTO) 82 % (42-75); PLATELET COUNT 93 10^3/uL (130-400); RED CELL DISTRIBUTION WIDTH 15.4 % (10.0-14.5); WHITE BLOOD COUNT 5.2 10^3/uL (4.3-11.0)
--- NOTE | 2019-04-20 04:03 | Pulmonary Consultation ---
History of Present Illness History of Present Illness Date Seen by Provider: Apr 20, 2019 Date of Admission 04/19/19 Reason for Visit: Septic Shock, RLL Pneumonia History of Present Illness Patient is a 54 yo F with PMH of PDA, VSD, HLD, IN s/p stent 3-4 mo's ago, hx of MRSA, and Intellectual Disability, who was brought to the ED yesterday by her mother for N/V, poor food/fluid intake, and weakness x2days. Patient has 10 day history of viral illness and went to [place] ED 1 week ago. In the ED yesterday, patient was found to be in septic shock and a central line was placed. Allergies and Home Medications Allergies Coded Allergies: No Known Drug Allergies (Unverified , 12/20/18) Past Ysdaeep-Qoeimu-Jfucnf Hx Past Med/Social Hx: Reviewed Nursing Past Med/Soc Hx Patient Social History Alcohol Use: Denies Use Recreational Drug Use: No Smoking Status: Never a Smoker 2nd Hand Smoke Exposure: No Recent Foreign Travel: No Contact w/Someone Who Travel: No Recent Infectious Disease Expo: No Recent Hopitalizations: No Immunizations Up To Date Tetanus Booster (TDap): Unknown Date of Influenza Vaccine: Nov 11, 2018 Seasonal Allergies Seasonal Allergies: No Past Medical History Surgeries: Yes (PATENT DUCT, VENTRAL SEPTAL DEFECT) CABG, Hysterectomy Cardiac: Yes Heart Attack, High Cholesterol Family Medical History Reviewed Nursing Family Hx No Pertinent Family Hx Review of Systems Date Seen by Provider: Apr 20, 2019 Constitutional: Weakness; No: Chills, Sweats Eyes: No: Pain, Vision change ENT: No: Ear pain, Nose congestion Respiratory: No: Wheezing, Pleuritic Pain Cardiovascular: No: Chest Pain, Edema Gastrointestinal: Nausea, Vomiting Genitourinary: No Dysuria, No Frequency Skin: No: Rash Neurological: No: Weakness, Change in speech Sepsis Event Evaluation Height, Weight, BMI Height: '" Weight: lbs. oz. kg; 28.00 BMI Method: Exam Exam Vital Signs Date Time Temp Pulse Resp B/P (MAP) Pulse Ox O2 Delivery O2 Flow Rate FiO2 04/20/19 00:00 103 27 107/66 (80) 89 Room Air 04/20/19 00:00 90 Room Air 2.00 04/19/19 23:00 105 110/84 (93) 92 Room Air 3/8/20 22:09 97/61 04/19/19 22:00 95 23 97/61 (73) 92 Room Air 04/19/19 21:00 104 23 107/68 (81) 94 Room Air 04/19/19 20:00 98 Nasal Cannula 2.00 04/19/19 20:00 102 23 102/61 (75) 97 Room Air 04/19/19 20:00 36.4 04/19/19 19:00 91 04/19/19 19:00 91 21 88/50 (63) 94 Room Air 04/19/19 18:45 96 23 94/58 (70) 96 Room Air 04/19/19 18:30 100 31 90/57 (68) 95 Room Air 04/19/19 18:15 104 32 132/74 (93) 100 Room Air 04/19/19 18:00 90 16 136/77 (96) 100 Room Air 04/19/19 17:45 90 24 109/65 (80) 100 Room Air 04/19/19 17:30 89 25 103/61 (75) 100 Room Air 04/19/19 17:20 98 Nasal Cannula 2.00 04/19/19 17:20 100 Nasal Cannula 2.00 04/19/19 17:15 87 33 101/71 (81) 100 Room Air 04/19/19 17:08 91 04/19/19 17:00 36.6 86 25 101/71 (81) 100 Room Air 04/19/19 16:53 77 21 94/59 99 Room Air 2.00 04/19/19 16:05 86 79/48 04/19/19 15:51 91 Nasal Cannula 2.00 04/19/19 12:00 38.0 109 20 92/47 (62) 99 Room Air I & O 04/20/19 07:00 Intake Total 2563 ml Output Total 250 ml Balance 2313 ml Height & Weight Height: '" Weight: lbs. oz. kg; 28.00 BMI Method: General Appearance: WD/WN, Mild Distress HEENT: PERRL/EOMI; No Scleral Icterus (L), No Scleral Icterus (R) Neck: Non Tender, Limited Range of Motion Respiratory: Chest Non Tender, Normal Breath Sounds, Other (labored breathing) Cardiovascular: Regular Rate, Rhythm, No JVD, No Murmur, Tachycardia Capillary Refill: Less Than 3 Seconds Gastrointestinal: non tender, soft Extremity: Normal Inspection, Non Tender, No Pedal Edema Neurologic/Psychiatric: Alert, No Motor/Sensory Deficits Skin: Normal Color, Warm/Dry Lymphatic: No Adenopathy Results Lab Laboratory Tests 04/19/19 12:10 Assessment/Plan Assessment/Plan PNA, RLL -Continue Zosyn Septic Shock -Negative for Influenza -Nasal culture for MRSA given past history -Continue LR at 150ml/hr -Continue ISA Erickson MEDICAL STUDENT Apr 20, 2019 04:03
[2019-04-20 04:20] LABS: CALCIUM 7.7 MG/DL (8.5-10.1); CREATININE SERUM 1.28 MG/DL (0.60-1.30); MAGNESIUM 1.8 MG/DL (1.6-2.4); PHOSPHORUS 1.8 MG/DL (2.3-4.7); POTASSIUM 4.7 MMOL/L (3.6-5.0)
--- NOTE | 2019-04-20 04:57 | Pulmonary Consultation ---
History of Present Illness History of Present Illness Date Seen by Provider: Apr 20, 2019 Time Seen by Provider: 04:50 Date of Admission Reason for Visit: Septic Shock, RLL Pneumonia History of Present Illness 54yo presented secondary to worsening weakness and found to have hypotension. Central line was placed she was admitted to ICU. She was dx with PNA and septic shock. Troponin and LA was found to be positive. Influenza is negative. I am consulted for ICU management. Allergies and Home Medications Allergies Coded Allergies: No Known Drug Allergies (Unverified , 12/20/18) Past Olxmoex-Lrrweh-Zafbcw Hx Past Med/Social Hx: Reviewed Nursing Past Med/Soc Hx Patient Social History Alcohol Use: Denies Use Recreational Drug Use: No Smoking Status: Never a Smoker 2nd Hand Smoke Exposure: No Recent Foreign Travel: No Contact w/Someone Who Travel: No Recent Infectious Disease Expo: No Recent Hopitalizations: No Immunizations Up To Date Tetanus Booster (TDap): Unknown Date of Influenza Vaccine: Nov 11, 2018 Seasonal Allergies Seasonal Allergies: No Past Medical History Surgeries: Yes (PATENT DUCT, VENTRAL SEPTAL DEFECT) CABG, Hysterectomy Cardiac: Yes Heart Attack, High Cholesterol Family Medical History Reviewed Nursing Family Hx No Pertinent Family Hx Sepsis Event Evaluation Height, Weight, BMI Height: '" Weight: lbs. oz. kg; 28.00 BMI Method: Exam Exam Vital Signs Date Time Temp Pulse Resp B/P (MAP) Pulse Ox O2 Delivery O2 Flow Rate FiO2 04/20/19 03:47 37.2 04/20/19 03:00 112 34 91/55 (67) 96 Room Air 04/20/19 02:00 110 20 107/78 (88) 95 Room Air 04/20/19 01:00 101 32 114/65 (81) 90 Room Air 04/20/19 01:00 101 04/20/19 00:00 103 27 107/66 (80) 89 Room Air 04/20/19 00:00 90 Room Air 2.00 04/20/19 00:00 37.0 04/19/19 23:00 105 110/84 (93) 92 Room Air 04/19/19 22:09 97/61 04/19/19 22:00 95 23 97/61 (73) 92 Room Air 04/19/19 21:00 104 23 107/68 (81) 94 Room Air 04/19/19 20:00 98 Nasal Cannula 2.00 04/19/19 20:00 102 23 102/61 (75) 97 Room Air 04/19/19 20:00 36.4 04/19/19 19:00 91 04/19/19 19:00 91 21 88/50 (63) 94 Room Air 04/19/19 18:45 96 23 94/58 (70) 96 Room Air 04/19/19 18:30 100 31 90/57 (68) 95 Room Air 04/19/19 18:15 104 32 132/74 (93) 100 Room Air 04/19/19 18:00 90 16 136/77 (96) 100 Room Air 04/19/19 17:45 90 24 109/65 (80) 100 Room Air 04/19/19 17:30 89 25 103/61 (75) 100 Room Air 04/19/19 17:20 98 Nasal Cannula 2.00 04/19/19 17:20 100 Nasal Cannula 2.00 04/19/19 17:15 87 33 101/71 (81) 100 Room Air 04/19/19 17:08 91 04/19/19 17:00 36.6 86 25 101/71 (81) 100 Room Air 04/19/19 16:53 77 21 94/59 99 Room Air 2.00 04/19/19 16:05 86 79/48 04/19/19 15:51 91 Nasal Cannula 2.00 04/19/19 12:00 38.0 109 20 92/47 (62) 99 Room Air I & O 04/20/19 07:00 Intake Total 2613 ml Output Total 600 ml Balance 2013 ml Height & Weight Height: '" Weight: lbs. oz. kg; 28.00 BMI Method: General Appearance: WD/WN, Mild Distress HEENT: PERRL/EOMI; No Scleral Icterus (L), No Scleral Icterus (R) Neck: Non Tender, Limited Range of Motion Respiratory: Chest Non Tender, Normal Breath Sounds, Other (labored breathing) Cardiovascular: Regular Rate, Rhythm, No JVD, No Murmur, Tachycardia Capillary Refill: Less Than 3 Seconds Gastrointestinal: non tender, soft Extremity: Normal Inspection, Non Tender, No Pedal Edema Neurologic/Psychiatric: Alert, No Motor/Sensory Deficits Skin: Normal Color, Warm/Dry Lymphatic: No Adenopathy Results Lab Laboratory Tests 04/19/19 12:10 04/20/19 03:45 Assessment/Plan Assessment/Plan PNA wtih severe sepsis/ septic shock -- Pt has hx of MRSA -Start Solucortef -Respiratory viral panel -Currently on Zosyn. Give Vanco 1gm x 1 and await PCT. -MRSA swab - has not been collect yet -Martinez cultures pending -Check BNP and procalcitonin -Currently IVF are at 150 LR NSTEMI with CAD -Cardiology is consulted MR Hx Anemia -Monitor DVT/GI ppx -Lovenox -PronKATE Parada DO Apr 20, 2019 04:57
[2019-04-20] MEDS ORDERED: VANCOMYCIN INJECTION 1,000 MG in NS (IVPB) 250 ML IV SCH (05:00)
[2019-04-20] MEDS: PIPERACILLIN/TAZO 4.5 GM/NS 100 ML IV SCH ×6 (05:11→20:54)
[2019-04-20] MEDS ORDERED: SODIUM PHOSPHATE INJ 15 MM in D5W 100 ML IVPB 100 ML IV ONE (05:15)
[2019-04-20] MEDS: KCL 20 MEQ TAB (K-DUR) PO SCH (06:51)
[2019-04-20] MEDS: POTASSIUM CL 10MEQ/50ML IVPB 50 ML IV SCH (06:51)
[2019-04-20] MEDS: MAGNESIUM 1 GM/100 ML IVPB 100 ML IV SCH (06:51)
[2019-04-20] MEDS: inSUlin ASPART (NovoLOG) 1 UNIT/0.01 ML (CHARGE PER UNIT) SQ SCH ×4 (06:52→20:56)
[2019-04-20] MEDS: HYDROCORTISONE 100 MG/2 ML (Solu-CORTEF) VIAL IV SCH ×3 (06:58→21:15)
--- NOTE | 2019-04-20 07:14 | Diagnostic Imaging Report ---
INDICATION: Pneumonia. Sepsis. COMPARISON: 04/19/2019 FINDINGS: Single frontal radiograph view of the chest was obtained and shows persistent mild cardiomegaly. There is persistent moderate pulmonary vascular congestion as well as mild diffuse prominence of the pulmonary interstitium. Nelia B-lines are again noted bilaterally. Overall, appearance has progressed since previous exam. There is no large effusion or pneumothorax. Left-sided internal jugular central venous catheter is identified. Tip now extends inferiorly into the high SVC. Osseous structures show no acute abnormalities. IMPRESSION: 1. Cardiomegaly with sequelae of CHF as above. Interstitial pulmonary edema appears to have progressed when compared to prior exam. 2. Left internal jugular central venous catheter with tip now in the high SVC. Dictated by: Dictated on workstation # [id number]
[2019-04-20] MEDS ORDERED: PHARMACY TO DOSE IV SCH (08:00)
--- NOTE | 2019-04-20 08:26 | NUR ---
PHARMACY TO DOSE VANCOMYCIN; 20MG/KG X 72.9 KG ~ 1500 MG 04/19 @0830; MAINT DOSE 15MG/KG X 72.9 KG ~ 1 G Q12H (CrCl 46.9; Q12H FREQUENCY SINCE ICU PT & SCr TRENDING DOWN; SCr 1.28); VANCOMYCIN TROUGH DUE 04/20 @ 1930. IF TROUGH >20, HOLD 04/20 2030 DOSE
[2019-04-20] MEDS ORDERED: VANCOMYCIN 1500 MG/NS 500 ML IVPB IV NR ×2 (08:30)
[2019-04-20] MEDS: TICAGRELOR 90 MG TABLET (BRILINTA) PO SCH ×2 (08:45→20:55)
[2019-04-20] MEDS: PANTOPRAZOLE 40 MG (PROTONIX) VIAL IV SCH (08:45)
--- NOTE | 2019-04-20 09:02 | History & Physical-Hospitalist ---
History of Present Illness HPI/Chief Complaint Pt is a 54yoCF with a PMH of intellectual disability, CAD s/p recent stent placement in [place], CHF, HTN who presented to the ER due to fever. She is unable to provide any history. Her mother is at bedside and states that she has been sick for the last week and was seen at multiple clinics regarding this and was told it was viral. Her fever continued and yesterday she appeared worse to her mom who brought her to the ER for evaluation and she was found to have septic schok due to pneumonia. She was admitted to the ICU for pressors and IV abx. She has improved over night and is now off pressors. Patient herself has no complaints and happily tells me about her 6 brothers and 1 sister. Source: patient Date Seen 04/20/19 Time Seen by a Provider: 09:01 Attending Physician Samina Watkins MD PCP No,Local Physician Referring Physician Date of Admission Apr 19, 2019 at 15:38 Home Medications & Allergies Home Medications Reviewed patient Home Medication Reconciliation performed by pharmacy medication reconciliations biomedical technician and/or nursing. Patients Allergies have been reviewed. Allergies Allergies Coded Allergies No Known Drug Allergies (Yhvowubiwd41/9/19) Past Ekjevnd-Igudyz-Dtgfji Hx Past Med/Social Hx: Reviewed Nursing Past Med/Soc Hx Patient Social History Alcohol Use: Denies Use Recreational Drug Use: No Smoking Status: Never a Smoker 2nd Hand Smoke Exposure: No Recent Foreign Travel: No Contact w/other who traveled: No Recent Hopitalizations: No Recent Infectious Disease Expo: No Immunizations Up To Date Tetanus Booster (TDap): Unknown Date of Influenza Vaccine: Nov 11, 2018 Seasonal Allergies Seasonal Allergies: No Past Medical History Surgeries: CABG, Hysterectomy Cardiac: Heart Attack, High Cholesterol Family History Reviewed Nursing Family Hx No Pertinent Family Hx Review of Systems ROS-Unable to Obtain: limited due intellectual delay Constitutional: fever EENTM: no symptoms reported, hearing loss Respiratory: no symptoms reported Cardiovascular: no symptoms reported Gastrointestinal: no symptoms reported Genitourinary: no symptoms reported Musculoskeletal: no symptoms reported Skin: no symptoms reported Psychiatric/Neurological: No Symptoms Reported Physical Exam Physical Exam Vital Signs Vital Signs - First Documented 04/19/19 04/19/19 12:00 15:51 Temp 38.0 Pulse 109 Resp 20 B/P (MAP) 92/47 (62) Pulse Ox 99 O2 Delivery Room Air O2 Flow Rate 2.00 Capillary Refill : Less Than 3 Seconds Height, Weight, BMI Height: '" Weight: lbs. oz. kg; 28.00 BMI Method: General Appearance: No Apparent Distress, Chronically ill HEENT: No Scleral Icterus (L), No Scleral Icterus (R); Other (dry mucus membranes) Neck: Supple Respiratory: Lungs Clear, No Respiratory Distress Cardiovascular: Regular Rate, Rhythm, No Murmur Gastrointestinal: Normal Bowel Sounds, Non Tender, Soft Extremity: Normal Capillary Refill, No Calf Tenderness, No Pedal Edema Neurologic/Psychiatric: Alert, Other (oriented to person and place, pleasant) Skin: Normal Color, Warm/Dry Results Results/Procedures Labs Laboratory Tests 04/19/19 12:10 04/20/19 03:45 Patient resulted labs reviewed. Imaging: Reviewed Imaging Report Assessment/Plan Admission Diagnosis Septic Shock Admission Status: Inpatient Order (span 2 midnights) Reason for Inpatient Admission: IV abx, pressors- critically ill Assessment and Plan Septic Shock RLL Pneumonia Currently off pressors Pulm consulted, appreciate recs Await cultures Focused exam done in ER Vancomycin and Zosyn CAD CHF Elevated troponin Recent stent placed in December Remains on ASA and Plavix Cardiology consulted, appreciate recs Thrombocytopenia Trend Normal INR Anemia Likely dilutional trend Clinical Quality Measures DVT/VTE Risk/Contraindication: Risk Factor Score Per Nursin RFS Level Per Nursing on Admit: 4+=Very High JAMISON DICK MD Apr 20, 2019 09:02
--- NOTE | 2019-04-20 09:14 | Consultation-Cardiology ---
HPI-Cardiology Cardiology Consultation: Date of Consultation 04/20/19 Time Seen by a Provider: 08:30 Date of Admission 04-19-2019 Attending Physician Samina Watkins MD Admitting Physician No,Local Physician Consulting Physician Conor Marcano MD HPI: Chief Complaint: Chest pain Ms. Parker is a 54 year old female admitted to ICU 10 from the ED. She is mentally delayed. Her mother is at the bedside. She reports the pt lives at a facility during the week and comes home on the weekends. She reports she has had a fever with occ cough for over a week. She reports she was seen by her PA in [place] and diagnosed with a viral illness and instructions to treat with Tylenol. She reports that was on a Saturday. She was then seen at this ED last Saturday d/t fever. She was evaluated and viral illness was again diagnosed. She states she then went back to the facility and again on Saturday she continued to run a fever. She reports by Saturday she was c/o nausea, decreased responsiveness, chilling, fever. She was then brought to the ED here. The mother denies pt c/o any CP. She states her primary gum worker is Dr. Santacruz with [facility]. She reports she has had a recent stress test and was told it was abnormal, but they are waiting for a cardiac CT to be done at [facility]. She reports following her CT in Dec 2018 she did wear a Life Vest fro approx 6 weeks, but then it was removed by Dr. Santacruz. She states the patient has not missed any doses of her medications, except on Saturday. Goldie is cooperative. She denies any c/o pain. She answers only a few questions and then closes her eyes. Review of Systems-Cardiology Review of Systems Other comments D/t patients mentation the ROS to the extent it could be obtained is as per HPI All Other Systems Reviewed Negative Unless Noted: Yes JEK-Krxnuq-Axlyeh Hx Patient Social History Alcohol Use: Denies Use Recreational Drug Use: No Smoking Status: Never a Smoker 2nd Hand Smoke Exposure: No Recent Foreign Travel: No Recent Infectious Disease Expo: No Hospitalization with Isolation: Denies Immunizations Up To Date Tetanus Booster (TDap): Unknown Date of Influenza Vaccine: Nov 11, 2018 Past Medical History PMH As described under Assessment. Family Medical History Family Medical History: Reported family h/o father and all of his siblings having CAD. Reported that her father has had CABG. Allergies and Home Medications Allergies Coded Allergies: No Known Drug Allergies (Unverified , 12/20/18) Home Medications Aspirin 81 Mg Tablet.dr, 81 MG PO DAILY, (Reported) Docusate Sodium 100 Mg Capsule, 100 MG PO BID, (Reported) Furosemide 40 Mg Tablet, 40 MG PO DAILY, (Reported) Lisinopril 2.5 Mg Tablet, 2.5 MG PO HS, (Reported) Polyethylene Glycol 3350 17 Gm Powd.pack, 17 GM PO DAILY, (Reported) Potassium Chloride 10 Meq Capsule.er, 10 MEQ PO DAILY, (Reported) Simvastatin 20 Mg Tablet, 20 MG PO HS, (Reported) Ticagrelor 90 Mg Tablet, 90 MG PO BID, (Reported) Physical Exam-Cardiology Physical Exam Vital Signs/I&O Capillary Refill : Less Than 3 Seconds Constitutional: well-developed, well-nourished, other (awake and alert, answers some questions) HEENT: PERRL, other (mouth and lips are very dry) Neck: No carotid bruit; carotid pulses are 2 + bilaterally Respiratory: No accessory muscle use, No respiratory distress; chest expansion is symmetric, chest is bilaterally symmetric, other (diminished air entry lower lobes with poor inspiratory effort) Cardiovascular: regular rate-rhythm; No JVD; S1 and S2, systolic murmur Gastrointestinal: soft, round, audible bowel sounds Genital/Rectal: other (indwelling urinart catheter to DD, clear, yellow) Extremities: no lower extremity edema bilateral Neurologic/Psychiatric: alert (oriented to self), other (moves all extremities) Skin: No rash on exposed areas, No ulcerations on exposed areas Data Review Labs Microbiology 04/23/19 Mycobacterial Culture - Preliminary, Resulted 04/22/19 Urine Culture - Final, Complete NO GROWTH 04/19/19 Blood Culture - Final, Complete No growth Radiology NAME: GOLDIE PARKER [facility] REC#: [id number] PT STATUS: ADM IN : 1965 PHYSICIAN: KATE ROSARIO DO ADMIT DATE: 04/19/19/ICU Draft Date of Exam:04/20/19 CHEST 1 VIEW, AP/PA ONLY INDICATION: Pneumonia. Sepsis. COMPARISON: 04/19/2019 FINDINGS: Single frontal radiograph view of the chest was obtained and shows persistent mild cardiomegaly. There is persistent moderate pulmonary vascular congestion as well as mild diffuse prominence of the pulmonary interstitium. Nelia B-lines are again noted bilaterally. Overall, appearance has progressed since previous exam. There is no large effusion or pneumothorax. Left-sided internal jugular central venous catheter is identified. Tip now extends inferiorly into the high SVC. Osseous structures show no acute abnormalities. IMPRESSION: 1. Cardiomegaly with sequelae of CHF as above. Interstitial pulmonary edema appears to have progressed when compared to prior exam. 2. Left internal jugular central venous catheter with tip now in the high SVC. Dictated on workstation # [id number] Dict: 04/20/19 0710 Trans: 04/20/1913 [id number] Interpreted by: ALBERTINA HANNA MD Electronically signed by: A/P-Cardiology Assessment/Admission Diagnosis Pneumonia with sepsis - management per medical/pulmonary services Acute on chronic systolic CHF - treat with diuretics Mildly elevated troponin, likely Type 2 CT d/t sepsis and hypotension ICM - document LVEF of Dec 2018 at [facility] by Dr. Martin is 20%. Currently being managed by Dr. Santacruz at [place], [place] H/O NSTEMI in Dec 2018 - cardiac cath of 2018 at [facility] by Dr. 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 80% ostial occlusion of RCA with Synergy stent, 3.0 x 20 mm, placed. Elevated LVEDP H/O VSD and PDA repair as a child JO likely d/t volume depletion, hypotension and sepsis - improved Reported h/o pulmonary hypertension Reported intolerance to BB (d/t hypotension in the past, per mother's report) Mild thrombocytopenia of undetermined etiology - medical services managing Family h/o CAD (father) Discussion and Recomendations Complex management issue Pneumonia with sepsis - management per medical services Mildly elevated troponin likely Type 2 CT d/t sepsis and hypotension H/O CAD with recent stenting - continue Brilinta and ASA Acute on chronic systolic CHF - treat with diuretics Acute kidney injury likely secondary to sepsis, hypotension and volume depletion - improved ICM - echocardiogram to eval LVEF Records from [facility] We have discussed her plan of care and cardiac issues with her mother We have discussed her case with Dr. Kelly We would like to thank Dr. Kelly for this consult Further recs will be based on her hospital course Clinical Quality Measures DVT/VTE Risk/Contraindication: Risk Factor Score Per Nursin RFS Level Per Nursing on Admit: 4+=Very High KEVIN GALAVIZ Apr 20, 2019 09:14
[2019-04-20] MEDS ORDERED: ASPIRIN 81 MG CHEW (CHILDREN'S ASA) PO NR (09:15)
[2019-04-20] MEDS: NOREPINEPHRINE 4 MG/250 ML 250 ML IV SCH ×2 (10:17→20:56)
--- NOTE | 2019-04-20 11:00 | NUR ---
Pt is [facility] but currently on liquid diet. Chaplain holliday w/ pt.
--- NOTE | 2019-04-20 13:02 | Consultation-Cardiology ---
HPI-Cardiology Cardiology Consultation: Date of Consultation 04/20/19 Time Seen by a Provider: 09:10 Date of Admission Attending Physician Samina Watkins MD Admitting Physician No,Local Physician Consulting Physician TAY CEBALLOS MD, MA, FACP, FACC, FSCAI, CCDS HPI: Chief Complaint: Reason for Cardiology consultation: H/o CAD HPI Ms. Mcdaniels is a 54 year old female admitted to ICU 10 from the ED. She is mentally delayed. Her mother is at the bedside. She reports the pt lives at a facility during the week and comes home on the weekends. She reports she has had a fever with occ cough for over a week. She reports she was seen by her PA in [place] and diagnosed with a viral illness and instructions to treat with Tylenol. She reports that was on a Saturday. She was then seen at this ED last Saturday d/t fever. She was evaluated and viral illness was again diagnosed. She states she then went back to the facility and again on Saturday she continued to run a fever. She reports by Saturday she was c/o nausea, decreased responsiveness, chilling, fever. She was then brought to the ED here. The mother denies pt c/o any CP. She states her primary home sales service professional is Dr. Santacruz with [facility]. She reports she has had a recent stress test and was told it was abnormal, but they are waiting for a cardiac CT to be done at [facility]. She reports following her NC in Dec 2018 she did wear a Life Vest fro approx 6 weeks, but then it was removed by Dr. Santacruz. She states the patient has not missed any doses of her medications, except on Saturday. Alyssa is cooperative. She denies any c/o pain. She answers only a few questions and then closes her eyes. Review of Systems-Cardiology Review of Systems Constitutional: other (Pt is not able to provide ROS. To the extent it could be obtained from her mother is noted above) All Other Systems Reviewed Negative Unless Noted: Yes LBF-[id number]-Oafekj Hx Patient Social History Alcohol Use: Denies Use Recreational Drug Use: No Smoking Status: Never a Smoker 2nd Hand Smoke Exposure: No Recent Foreign Travel: No Recent Infectious Disease Expo: No Hospitalization with Isolation: Denies Immunizations Up To Date Tetanus Booster (TDap): Unknown Date of Influenza Vaccine: Nov 11, 2018 Past Medical History PMH As described under Assessment. Family Medical History Family Medical History: Reported family h/o father and all of his siblings having CAD. Reported that her father has had CABG. Allergies and Home Medications Allergies Coded Allergies: No Known Drug Allergies (Unverified , 12/20/18) Patient Home Medication List Home Medication List Reviewed: Yes Physical Exam-Cardiology Physical Exam Vital Signs/I&O 04/20/19 04/20/19 04/20/19 04/20/19 01:00 01:00 02:00 03:00 Pulse 101 101 110 112 Resp 32 20 34 B/P (MAP) 114/65 (81) 107/78 (88) 91/55 (67) Pulse Ox 90 95 96 O2 Delivery Room Air Room Air Room Air 04/20/19 04/20/19 04/20/19 04/20/19 03:47 04:00 04:00 05:15 Temp 37.2 Pulse 104 104 Resp 20 30 B/P (MAP) 102/62 (75) 92/65 (74) Pulse Ox 98 90 96 O2 Delivery Room Air Room Air Room Air O2 Flow Rate 2.00 04/20/19 04/20/19 04/20/19 04/20/19 06:00 07:00 07:00 07:14 Temp 37.0 Pulse 102 109 105 Resp 28 36 B/P (MAP) 99/61 (74) 98/60 (73) Pulse Ox 93 93 O2 Delivery Room Air Nasal Cannula O2 Flow Rate 3.00 04/20/19 04/20/19 04/20/19 04/20/19 08:00 08:00 09:00 10:00 Pulse 105 120 109 Resp 30 33 32 B/P (MAP) 99/62 (74) 98/86 (90) 100/67 (78) Pulse Ox 94 95 94 93 O2 Delivery Room Air Nasal Cannula Nasal Cannula Nasal Cannula O2 Flow Rate 3.00 3.00 3.00 3.00 04/20/19 04/20/19 04/20/19 11:00 11:16 12:00 Temp 36.6 Pulse 115 115 Resp 41 32 B/P (MAP) 117/110 (112) 126/80 (95) Pulse Ox 91 94 O2 Delivery Nasal Cannula Nasal Cannula O2 Flow Rate 3.00 3.00 04/20/19 00:00 Intake Total 3563 ml Output Total 250 ml Balance 3313 ml Capillary Refill : Less Than 3 Seconds Constitutional: well-developed, well-nourished, other (awake and alert, answers some questions) HEENT: PERRL, other (mouth and lips are very dry) Neck: No carotid bruit; carotid pulses are 2 + bilaterally Respiratory: No accessory muscle use, No respiratory distress; chest expansion is symmetric, chest is bilaterally symmetric, other (diminished air entry lower lobes with poor inspiratory effort) Cardiovascular: regular rate-rhythm; No JVD; S1 and S2, systolic murmur Gastrointestinal: soft, round, audible bowel sounds Genital/Rectal: other (indwelling urinart catheter to DD, clear, yellow) Extremities: no lower extremity edema bilateral Neurologic/Psychiatric: alert (oriented to self), other (moves all extremities) Skin: No rash on exposed areas, No ulcerations on exposed areas Data Review Labs Laboratory Tests 04/19/19 14:03: Urine Color YELLOW, Urine Clarity SL CLOUDY, Urine pH 6.0, Urine Specific [place] 1.025H, Urine Protein 2+H, Urine Glucose (UA) NEGATIVE, Urine Ketones NEGATIVE, Urine Nitrite NEGATIVE, Urine Bilirubin NEGATIVE, Urine Urobilinogen 0.2, Urine Leukocyte Esterase NEGATIVE, Urine RBC (Auto) 1+H, Urine RBC 0-2, Urine WBC NONE, Urine Squamous Epithelial Cells NONE, Urine Crystals NONE, Urine Amorphous Sediment FEW GAMALIEL URATESH, Urine Bacteria NEGATIVE, Urine Casts PRESENT, Urine Granular Casts 10-25H, Urine Mucus NEGATIVE, Urine Culture In dicated NO 04/19/19 16:09: Lactic Acid Level 0.79 04/19/19 20:24: Glucometer 139H 04/20/19 03:45: White Blood Count 5.2, Red Blood Count 3.19L, Hemoglobin 9.5L, Hematocrit 29L, Mean Corpuscular Volume 91, Mean Corpuscular Hemoglobin 30, Mean Corpuscular Hemoglobin Concent 33, Red Cell Distribution Width 15.4H, Platelet Count 93L, Mean Platelet Volume 12.4H, Neutrophils (%) (Auto) 82H, Lymphocytes (%) (Auto) 14, Monocytes (%) (Auto) 3, Eosinophils (%) (Auto) 1, Basophils (%) (Auto) 0, Neutrophils # (Auto) 4.3, Lymphocytes # (Auto) 0.7L, Monocytes # (Auto) 0.2, Eosinophils # (Auto) 0.1, Basophils # (Auto) 0.0, Sodium Level 134L, Potassium Level 4.7, Chloride Level 106, Carbon Dioxide Level 21, Anion Gap 7, Blood Urea Nitrogen 19H, Creatinine 1.28, Estimat Glomerular Filtration Rate 43, BUN/Creatinine Ratio 15, Glucose Level 87, Calcium Level 7.7L, Phosphorus Level 1.8L, Magnesium Level 1.8 04/20/19 05:24: B-Type Natriuretic Peptide 1317.0H, Procalcitonin 1.26H 04/20/19 11:38: Glucometer 124H Microbiology 04/19/19 Influenza Types A,B Antigen (ANA) - Final, Complete A/P-Cardiology Assessment/Admission Diagnosis Pneumonia with sepsis - management per medical/pulmonary services Acute on chronic systolic CHF - treat with diuretics Mildly elevated troponin, likely Type 2 NC d/t sepsis and hypotension ICM - document LVEF of Dec 2018 at [facility] by Dr. Martin is 20%. Currently being managed by Dr. Santacruz at [place], [place] H/O NSTEMI in Dec 2018 - cardiac cath of Dec 17, 2018 at [facility] by Dr. 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 80% ostial occlusion of RCA with Synergy stent, 3.0 x 20 mm, placed. Elevated LVEDP H/O VSD and PDA repair as a child JO likely d/t volume depletion, hypotension and sepsis - improved Reported h/o pulmonary hypertension Reported intolerance to BB (d/t hypotension in the past, per mother's report) Mild thrombocytopenia of undetermined etiology - Medical services managing Family h/o CAD (father) Discussion and Recomendations Complex management due to multiple comorbidities Pneumonia with sepsis - management per medical services H/O CAD with recent stenting - continue Brilinta and ASA Acute on chronic systolic CHF - treat with diuretics Acute kidney injury likely secondary to sepsis, hypotension and volume depletion - improved ICM - echocardiogram to eval LVEF Records from [facility] We have discussed her plan of care and cardiac issues with her mother We have discussed her case with Dr. Kelly We would like to thank Dr. Kelly for this consult Further recs will be based on her hospital course Clinical Quality Measures DVT/VTE Risk/Contraindication: Risk Factor Score Per Nursin RFS Level Per Nursing on Admit: 4+=Very High TAY CBEALLOS MD FACP FAC CCDS Apr 20, 2019 13:02
[2019-04-20] MEDS ORDERED: TICA90TA PO (15:35)
[2019-04-20] MEDS ORDERED: DOCU100C37 PO (15:35)
[2019-04-20] MEDS ORDERED: ASPI-983 PO (15:35)
[2019-04-20] MEDS ORDERED: POTA10CA43 PO (15:35)
[2019-04-20] MEDS ORDERED: FURO40TA4 PO (15:35)
[2019-04-20] MEDS ORDERED: LISI2.5T PO (15:35)
[2019-04-20] MEDS ORDERED: SIMV20TA26 PO (15:35)
[2019-04-20] MEDS ORDERED: POLY17PO6 PO (15:36)
--- NOTE | 2019-04-20 15:43 | NUR ---
SPOKE WITH PT'S CAREGIVER (SHE HAD A MED LIST) AND WENT THRU THE EXT MED HISTORY TO COMPLETE THE MED REC. ALL MEDICATIONS ON THE MED LIST MATCH THE EXT MED HISTORY AND NO DISCREPANCIES WERE NOTED. OTC MEDS: MIRALAX DOCUSATE ASPIRIN 81MG
[2019-04-20] MEDS: VANCOMYCIN 1 GM/NS 250 ML IVPB IV SCH ×2 (20:54)
[2019-04-20] MEDS: SIMvastatin 20 MG (ZOCOR) TAB PO SCH (20:54)
[2019-04-20] MEDS: ENOXAPARIN 40 MG/0.4 ML (LOVENOX) SYR SQ SCH (20:55)
[2019-04-21] VITALS (24 sets, daily range): BP systolic 80–125; BP diastolic 53–101
--- NOTE | 2019-04-21 03:05 | Pulmonary Progress Note ---
ISA RODRIGUEZ MEDICAL STUDENT 04/21/19 0305: Subjective Date Seen by a Provider: Apr 21, 2019 Subjective/Events-last exam Patient reports SOB and denies pain. Concerned about her tv remote this morning. Review of Systems General: No Chills, No Fatigue HEENT: No Eye Pain, No Ear Pain Pulmonary: Dyspnea; No Pleuritic Chest Pain Cardiovascular: No: Chest Pain, Palpitations Gastrointestinal: No: Nausea, Vomiting Genitourinary: No Dysuria, No Frequency Musculoskeletal: No: neck pain, back pain Neurological: No: Change in speech, Seizures Sepsis Event Evaluation Height, Weight, BMI Height: '" Weight: lbs. oz. kg; 28.00 BMI Method: Focused Exam Lactate Level 04/19/19 12:10: Lactic Acid Level 2.71*H 04/19/19 16:09: Lactic Acid Level 0.79 Exam Exam Vital Signs Date Time Temp Pulse Resp B/P (MAP) Pulse Ox O2 Delivery O2 Flow Rate FiO2 04/21/19 02:00 110 21 116/77 (90) 96 High Flow N/C 6.00 04/21/19 01:19 107 13 95 High Flow N/C 6.00 04/21/19 01:00 110 22 118/82 (94) 97 High Flow N/C 8.00 04/21/19 01:00 110 04/21/19 00:00 115 121/85 (97) 96 High Flow N/C 8.00 04/21/19 00:00 High Flow N/C 8.00 04/20/19 23:52 114 33 97 High Flow N/C 8.00 04/20/19 23:20 126 21 91 Nasal Cannula 10.00 04/20/19 23:00 124 21 125/84 (98) 92 Nasal Cannula 5.00 04/20/19 22:00 129 28 131/98 (109) 92 Nasal Cannula 5.00 04/20/19 21:00 110 123/95 (104) 95 Nasal Cannula 5.00 04/20/19 20:00 Room Air 5.00 04/20/19 20:00 110 29 106/85 (92) 94 Nasal Cannula 5.00 04/20/19 19:02 130 35 91 Nasal Cannula 5.00 04/20/19 19:00 133 34 109/83 (92) Nasal Cannula 3.00 04/20/19 19:00 133 04/20/19 18:00 94 Room Air 3.00 04/20/19 18:00 122 32 127/88 (101) 93 Nasal Cannula 3.00 04/20/19 17:00 116 32 133/88 (103) 93 Nasal Cannula 3.00 04/20/19 16:00 94 Room Air 3.00 04/20/19 16:00 113 24 121/96 (104) 97 Nasal Cannula 3.00 04/20/19 15:00 125 17 124/96 (105) 94 Nasal Cannula 3.00 04/20/19 14:00 107 33 105/77 (86) 95 Nasal Cannula 3.00 04/20/19 13:00 122 33 142/77 (98) 93 Nasal Cannula 3.00 04/20/19 13:00 122 04/20/19 12:00 115 32 126/80 (95) 94 Nasal Cannula 3.00 04/20/19 12:00 94 Room Air 3.00 04/20/19 11:16 36.6 04/20/19 11:00 115 41 117/110 (112) 91 Nasal Cannula 3.00 04/20/19 10:00 109 32 100/67 (78) 93 Nasal Cannula 3.00 04/20/19 09:00 120 33 98/86 (90) 94 Nasal Cannula 3.00 04/20/19 08:00 105 30 99/62 (74) 95 Nasal Cannula 3.00 04/20/19 08:00 94 Room Air 3.00 04/20/19 07:14 37.0 04/20/19 07:00 105 36 98/60 (73) 93 Nasal Cannula 3.00 04/20/19 07:00 109 04/20/19 06:00 102 28 99/61 (74) 93 Room Air 04/20/19 05:15 104 30 92/65 (74) 96 Room Air 04/20/19 04:00 90 Room Air 2.00 04/20/19 04:00 104 20 102/62 (75) 98 Room Air 04/20/19 03:47 37.2 I & O 04/21/19 07:00 Intake Total 300 ml Output Total 480 ml Balance -180 ml Height & Weight Height: '" Weight: lbs. oz. kg; 28.00 BMI Method: General Appearance: No Apparent Distress, Chronically ill HEENT: PERRL/EOMI; No Scleral Icterus (L), No Scleral Icterus (R) Neck: Supple, Limited Range of Motion Respiratory: No Respiratory Distress; No Accessory Muscle Use; Crackles Cardiovascular: Regular Rate, Rhythm, No Murmur Capillary Refill: Less Than 3 Seconds Gastrointestinal: non tender, soft Extremity: Normal Capillary Refill, No Calf Tenderness, No Pedal Edema Neurologic/Psychiatric: Alert, Other (oriented to self) Skin: Normal Color, Diaphoresis Lymphatic: No Adenopathy Results Lab Laboratory Tests 04/19/19 12:10 04/20/19 03:45 Assessment/Plan Assessment/Plan PNA wtih severe sepsis/ septic shock -- Pt has hx of MRSA -Start bumex for worsening pulm edema. Currently IVF are at 150ml/hr LR. -Repeat procalcitonin. WBC increased today at 13. -MRSA swab ---pending -Martinez cultures---pending -Respiratory viral panel---pending -Continue Zosyn. 1gm of Vanco given yesterday. -Continue Solucortef OJ -Cr 1.70 today, up from 1.28 yesterday. Acute on Chronic CHF -04/20/2019 ECHO: pending -12/2018 ECHO: EF 20% NSTEMI with CAD -Mildly elevated troponin, Cardiology following -ASA and simvastatin started yesterday Intellectual Disability DVT/GI ppx -Lovenox 40mg SQ -Protonix 40mg IV KATE SPENCER DO 04/21/19 0436: Subjective Time Seen by a Provider: 04:32 Subjective/Events-last exam C/o SOB persistent Exam Exam General Appearance: No Apparent Distress, Chronically ill HEENT: PERRL/EOMI; No Scleral Icterus (L), No Scleral Icterus (R) Neck: Supple, Limited Range of Motion Respiratory: No Respiratory Distress; No Accessory Muscle Use; Crackles Cardiovascular: Regular Rate, Rhythm, No Murmur Gastrointestinal: non tender, soft Extremity: Normal Capillary Refill, No Calf Tenderness, No Pedal Edema Neurologic/Psychiatric: Alert Skin: Normal Color Lymphatic: No Adenopathy Assessment/Plan Assessment/Plan PNA wtih severe sepsis/ septic shock -- Pt has hx of MRSA -Repeat procalcitonin. WBC increased today at 13. -MRSA swab ---pending -Martinez cultures---pending -Respiratory viral panel---pending -Continue Zosyn. Vanco -Decrease solucortef to Q12 JO -Cr 1.70 today, up from 1.28 yesterday. Acute on Chronic CHF -04/20/2019 ECHO: pending -12/2018 ECHO: EF 20% NSTEMI with CAD -Mildly elevated troponin, Cardiology following -ASA and simvastatin started yesterday Intellectual Disability DVT/GI ppx -Lovenox 40mg SQ -Protonix 40mg IV Supervisory-Addendum Brief Verification & Attestation Participated in pt care: history Personally performed: exam, history Care discussed with: Medical Student Procedures: n/a Verification and Attestation of Medical Student E/M Service A medical student performed and documented this service in my presence. I reviewed and verified all information documented by the medical student and made modifications to such information, when appropriate. I personally performed the physical exam and medical decision making. Kate Spencer, Apr 21, 2019,07:10 ISA RODRIGUEZ MEDICAL STUDENT Apr 21, 2019 03:05 KATE SPENCER DO Apr 21, 2019 04:36
[2019-04-21 03:13] LABS: BASOPHILS # (AUTO) 0.1 10^3/uL (0.0-0.1); BASOPHILS % (AUTO) 1 % (0-10); EOSINOPHILS % (AUTO) 0 % (0-10); HEMATOCRIT 35 % (35-52); LYMPHOCYTES # (AUTO) 1.2 X 10^3 (1.0-4.0); LYMPHOCYTES % (AUTO) 9 % (12-44); MEAN CORPUSCULAR HEMOGLOBIN 29 PG (25-34); MEAN CORPUSCULAR HGB CONC 31 G/DL (32-36); MEAN CORPUSCULAR VOLUME 94 FL (80-99); MEAN PLATELET VOLUME 12.5 FL (7.4-10.4); MONOCYTES # (AUTO) 0.6 X 10^3 (0.0-1.0); MONOCYTES % (AUTO) 5 % (0-12); NEUTROPHILS # (AUTO) 11.2 X 10^3 (1.8-7.8); NEUTROPHILS % (AUTO) 86 % (42-75); PLATELET COUNT 176 10^3/uL (130-400); RED CELL DISTRIBUTION WIDTH 16.8 % (10.0-14.5)
[2019-04-21] MEDS: PIPERACILLIN/TAZO 4.5 GM/NS 100 ML IV SCH ×6 (03:25→20:00)
[2019-04-21] MEDS: LACTATED RINGERS 1,000 ML IV SCH ×6 (03:25→20:01)
[2019-04-21 03:33] LABS: CALCIUM 8.1 MG/DL (8.5-10.1); CREATININE SERUM 1.7 MG/DL (0.60-1.30); MAGNESIUM 1.9 MG/DL (1.6-2.4); PHOSPHORUS 4.2 MG/DL (2.3-4.7); POTASSIUM 5.3 MMOL/L (3.6-5.0)
[2019-04-21] MEDS ORDERED: SODIUM BICARB 8.4% 50 MEQ/50 ML (ABBOTT) SYR IV ONE (04:30)
[2019-04-21] MEDS: NOREPINEPHRINE 4 MG/250 ML 250 ML IV SCH ×2 (05:14→12:30)
[2019-04-21] MEDS: POTASSIUM CL 10MEQ/50ML IVPB 50 ML IV SCH (05:14)
[2019-04-21] MEDS: MAGNESIUM 1 GM/100 ML IVPB 100 ML IV SCH (05:14)
[2019-04-21] MEDS: KCL 20 MEQ TAB (K-DUR) PO SCH (05:14)
[2019-04-21] MEDS: inSUlin ASPART (NovoLOG) 1 UNIT/0.01 ML (CHARGE PER UNIT) SQ SCH ×2 (05:15→12:27)
[2019-04-21] MEDS ORDERED: SODIUM BICARB 8.4% 50 MEQ/50 ML VIAL ONE (05:57)
[2019-04-21] MEDS: NS IV 1000 ML 1,000 ML IV SCH ×3 (06:10→17:50)
[2019-04-21] MEDS: HYDROCORTISONE 100 MG/2 ML (Solu-CORTEF) VIAL IV SCH ×2 (06:12→07:21)
[2019-04-21] MEDS ORDERED: SODIUM BICARB 8.4% 50 MEQ/50 ML VIAL IV ONE (06:15)
[2019-04-21] MEDS: PANTOPRAZOLE 40 MG (PROTONIX) VIAL IV SCH (08:05)
[2019-04-21] MEDS: VANCOMYCIN 1 GM/NS 250 ML IVPB IV SCH ×2 (08:05)
[2019-04-21] MEDS: TICAGRELOR 90 MG TABLET (BRILINTA) PO SCH ×2 (08:05→20:00)
[2019-04-21] MEDS: ASPIRIN 81 MG CHEW (CHILDREN'S ASA) PO SCH (08:05)
[2019-04-21] MEDS ORDERED: RT-ALBUTEROL/IPRATROPIUM 3 ML (DUONEB) VIAL ONE (08:22)
--- NOTE | 2019-04-21 08:51 | Progress Note - Cardiology ---
Cardiology SOAP Progress Note Subjective: In bed, visibly more SOB this morning. Mother at the bedside. The pt denies feeling more SOB or CP. Objective: I&O/Vital Signs 04/21/19 04/21/19 04/21/19 04/21/19 05:00 06:00 07:00 07:00 Pulse 125 125 124 123 Resp 29 32 B/P (MAP) 105/76 (86) 119/86 (97) 125/92 (103) Pulse Ox 95 79 O2 Delivery High Flow N/C High Flow N/C High Flow N/C O2 Flow Rate 6.00 6.00 6.00 04/21/19 04/21/19 04/21/19 04/21/19 08:00 08:00 08:51 09:00 Pulse 129 124 Resp 27 29 B/P (MAP) 117/74 (88) Pulse Ox 96 95 98 O2 Delivery High Flow N/C High Flow N/C High Flow N/C High Flow N/C O2 Flow Rate 6.00 8.00 7.00 7.00 04/21/19 04/21/19 04/21/19 04/21/19 09:20 09:27 10:00 11:00 Pulse 96 105 Resp 34 25 32 B/P (MAP) 80/53 (62) 115/85 (95) Pulse Ox 95 96 100 O2 Delivery NIV Bilevel NIV Bilevel NIV Bilevel O2 Flow Rate 35.00 35.00 35.00 35.00 04/21/19 04/21/19 04/21/19 04/21/19 12:00 12:00 12:30 13:00 Pulse 100 107 Resp 20 37 B/P (MAP) 118/84 (95) 118/80 (93) Pulse Ox 96 100 94 O2 Delivery NIV Bilevel NIV Bilevel NIV Bilevel NIV Bilevel O2 Flow Rate 8.00 35.00 30.00 30.00 FiO2 25 04/21/19 04/21/19 04/21/19 04/21/19 13:00 13:32 15:16 15:17 Pulse 110 Pulse Ox 95 O2 Delivery NIV Bilevel Vapotherm Vapotherm O2 Flow Rate 25.00 30.00 30.00 35.00 FiO2 35 04/21/19 15:49 Pulse Ox 94 O2 Delivery Vapotherm O2 Flow Rate 30.00 FiO2 35 04/21/19 00:00 Intake Total 250 ml Output Total 355 ml Balance -105 ml Constitutional: well-developed, well-nourished, other (awake and alert, answers some questions) Respiratory: accessory muscle use, respiratory distress, chest expansion is symmetric, chest is bilaterally symmetric, rhonchi (scattered), other (diminished throughout) Cardiovascular: regular rate-rhythm; No JVD; tachycardia, S1 and S2, systolic m urmur Gastrointestional: soft, round, audible bowel sounds Genital/Rectal: other (indwelling urinart catheter to DD, hematuria) Extremities: no lower extremity edema bilateral Neurologic/Psychiatric: alert (oriented to self), other (moves all extremities) Skin: No rash on exposed areas, No ulcerations on exposed areas Results/Procedures: Labs Laboratory Tests 04/20/19 20:52: Glucometer 167H 04/21/19 03:00: White Blood Count 13.0H, Red Blood Count 3.75L, Hemoglobin 11.0L, Hematocrit 35, Mean Corpuscular Volume 94, Mean Corpuscular Hemoglobin 29, Mean Corpuscular Hemoglobin Concent 31L, Red Cell Distribution Width 16.8H, Platelet Count 176, Mean Platelet Volume 12.5H, Neutrophils (%) (Auto) 86H, Lymphocytes (%) (Auto) 9L, Monocytes (%) (Auto) 5, Eosinophils (%) (Auto) 0, Basophils (%) (Auto) 1, Neutrophils # (Auto) 11.2H, Lymphocytes # (Auto) 1.2, Monocytes # (Auto) 0.6, Eosinophils # (Auto) 0.0, Basophils # (Auto) 0.1, Sodium Level 137, Potassium Level 5.3H, Chloride Level 107, Carbon Dioxide Level 17L, Anion Gap 13, Blood Urea Nitrogen 24H, Creatinine 1.70H, Estimat Glomerular Filtration Rate 31, BUN/Creatinine Ratio 14, Glucose Level 152H, Calcium Level 8.1L, Phosphorus Level 4.2, Magnesium Level 1.9, Procalcitonin 1.59H 04/21/19 07:45: Lactic Acid Level 1.73 04/21/19 08:48: Blood Gas Puncture Site LT BRACHIAL, Blood Gas Patient Temperature 37.1, Arterial Blood pH 7.16*L, Arterial Blood Partial Pressure CO2 62H, Arterial Blood Partial Pressure O2 68L, Arterial Blood HCO3 21L, Arterial Blood Total CO2 23.1, Arterial Blood Oxygen Saturation 89L, Arterial Blood Base Excess -6.2L, Onesimo Test YES-POS, Blood Gas Ventilator Setting NO, Blood Gas Inspired Oxygen 7 Microbiology 04/20/19 MRSA Screen - Final, Complete MRSA not isolated 04/19/19 Urine Culture - Final, Complete NO GROWTH 04/19/19 Blood Culture - Preliminary, Resulted Staph, Coag Neg (PHOTOGRAPHY ASSISTANT) See Comments A/P: Assessment: Acute resp distress - multifactorial (reasons listed below) Pneumonia with sepsis - management per medical/pulmonary services Acute on chronic systolic/diastolic CHF - treat with diuretics Mildly elevated troponin, likely Type 2 NC d/t sepsis and hypotension ICM - document LVEF of Dec 2018 at [facility] by Dr. Martin is 20%. Currently being managed by Dr. Santacruz at [place], [place]. Most recent echo of April 20, 2019 showed LVEF 40-45%. Hypokinesis of the apical anteroseptal myocardium. Grade 1 diastolic dysfunction. Mild MR. RVSP approx 29 mmHg H/O NSTEMI in Dec 2018 - cardiac cath of Dec 17, 2018 at [facility] by Dr. Martin showed EVAPORATOR SUPERVISOR L main which is anaomalous arising from right coronary cusp, no other left sided vessels could be identified. 80% ostial occlusion of RCA with Synergy stent, 3.0 x 20 mm, placed. Elevated LVEDP H/O VSD and PDA repair as a child JO likely d/t volume depletion, hypotension and sepsis Reported h/o pulmonary hypertension Reported intolerance to BB (d/t hypotension in the past, per mother's report) Mild thrombocytopenia of undetermined etiology - Medical services managing Family h/o CAD (father) Plan: Complex management due to multiple comorbidities Pneumonia with sepsis with worsening resp status - management per medical services H/O CAD with recent stenting at [facility] - continue Brilinta and ASA Acute on chronic systolic CHF - treat with diuretics BB as tolerated Monitor lab closely KEVIN GALAVIZ Apr 21, 2019 08:51
[2019-04-21 08:56] LABS: ABG BASE EXCESS -6.2 MMOL/L (-2.5-2.5); ABG OXYGEN SATURATION 89 % (94-100); ABG PCO2 62 MMHG (35-45); ABG PO2 68 MMHG (79-93); ABG TCO2 23.1 MMOL/L (21.0-31.0)
[2019-04-21 08:59] LABS: ABG PH 7.16 (7.37-7.43)
[2019-04-21 09:00] LABS: ALLENS TEST YES-POS; INSPIRED O2 7; PATIENT TEMP 37.1; VENTILATOR NO
[2019-04-21] MEDS ORDERED: meTOprolol 5 MG/5 ML (LOPRESSOR) VIAL IV ONE (09:00)
[2019-04-21] MEDS ORDERED: FUROSEMIDE 40 MG/4 ML INJ (LASIX) IVP ONE (09:00)
--- NOTE | 2019-04-21 09:06 | Diagnostic Imaging Report ---
EXAMINATION: Chest radiograph, portable AP view. DATE: 04/21/2019 4:31 AM hours. INDICATION: 54-year-old female, pneumonia, sepsis. COMPARISON: April 20, 2019. FINDINGS: There is a left-sided central venous line overlying the upper SVC. Stable overall appearance of the cardiomediastinal silhouette. There is no identified pneumothorax. There is no large pleural effusion. There are bilateral predominantly interstitial appearing opacities. IMPRESSION: 1. Unchanged bilateral predominantly interstitial opacities. Findings may relate to atypical infectious etiology and/or edema. 2. Left-sided central venous line overlies the upper SVC. Dictated by: Dictated on workstation # [id number]
[2019-04-21] MEDS ORDERED: meTOprolol 5 MG/5 ML (LOPRESSOR) VIAL ONE (09:11)
[2019-04-21] MEDS ORDERED: FUROSEMIDE 40 MG/4 ML INJ (LASIX) ONE (09:11)
[2019-04-21] MEDS ORDERED: RT-ALBUTEROL/IPRATROPIUM 3 ML (DUONEB) VIAL INH PRN (09:15)
--- NOTE | 2019-04-21 11:27 | NUR ---
CM/SS: Attempted to visit with mother (Kassandra) of pt to discuss guardianship and code status, she was not in the room and reportedly would return in one hour. Plan: Undetermined at this time Summary: Pt is MR and does have her mother appointed as her guardian. Pt's mother is not present and should return in one hour. This workers card is left with caregiver.
--- NOTE | 2019-04-21 11:30 | Progress Note - Hospitalist ---
Subjective HPI/CC On Admission Date Seen by Provider: Apr 21, 2019 Time Seen by Provider: 08:45 Pt is a 54yoCF with a PMH of intellectual disability, CAD s/p recent stent placement in [place], CHF, HTN who presented to the ER due to fever. She is unable to provide any history. Her mother is at bedside and states that she has been sick for the last week and was seen at multiple clinics regarding this and was told it was viral. Her fever continued and yesterday she appeared worse to her mom who brought her to the ER for evaluation and she was found to have septic schok due to pneumonia. She was admitted to the ICU for pressors and IV abx. She has improved over night and is now off pressors. Patient herself has no complaints and happily tells me about her 6 brothers and 1 sister. Subjective/Events-last exam Pt remains off pressors but worsening respiratory status. Discussed with Dr Spencer and ABG ordered. ABG reviewed resp acidosis so placed I placed her on BiPAP. Discussed with mother who is guardian about worsening status and her potential need for intubation. Mother agrees to this. Focused Exam Lactate Level 04/19/19 12:10: Lactic Acid Level 2.71*H 04/19/19 16:09: Lactic Acid Level 0.79 04/21/19 07:45: Lactic Acid Level 1.73 Lactic Acid Level Laboratory Tests Test 04/21/19 07:45 Lactic Acid Level 1.73 MMOL/L (0.50-2.00) Objective Exam Vital Signs Vital Signs Date Time Temp Pulse Resp B/P (MAP) Pulse Ox O2 Delivery O2 Flow Rate FiO2 04/21/19 11:00 105 32 115/85 (95) 100 NIV Bilevel 35.00 04/20/19 11:16 36.6 Capillary Refill : Less Than 3 Seconds General Appearance: Chronically ill, Moderate Distress Respiratory: Accessory Muscle Use, Decreased Breath Sounds, Rhonci Cardiovascular: No JVD, No Murmur, Tachycardia Gastrointestinal: Normal Bowel Sounds, Soft Neurologic/Psychiatric: Alert, Other (oriented to person and place) Results/Procedures Lab Laboratory Tests 04/21/19 03:00 Patient resulted labs reviewed. Imaging: Reviewed Imaging Report Assessment/Plan Assessment and Plan Assess & Plan/Chief Complaint Septic Shock RLL Pneumonia Acute Hypercapnic and Hypoxemic Respiratory Failure Currently off pressors Pulm consulted, appreciate recs Cultures with NGTD Vancomycin and Zosyn I called and spoke with crane engineer at [facility] regarding case and no identifiable source of infection but has had lymphopenia, transaminitis and rapid progression to ARDS and concerns for novel COVID19 Recommendation was for COVID19 testing I immediately alerted Infection control who placed patient on negative pressure/droplet precautions Hopefully results will be back within 24 hours CAD CHF Elevated troponin Recent stent placed in December Remains on ASA and Plavix Cardiology consulted, appreciate recs Thrombocytopenia- resolved today Trend Normal INR Anemia -improved Likely dilutional trend JO Hyperkalemia Bicarb given for HyperK and metabolic acidosis Continue NS at 150ml/hr and DC LR Critical Care Critically Ill Patient Diagnosis/Problems Diagnosis/Problems (1) JO (acute kidney injury) Status: Acute (2) CAD (coronary artery disease) Qualifiers: Coronary Disease-Associated Artery/Lesion type: [place] artery [place] vs. transplanted heart: [place] heart Associated angina: without angina Qualified Codes: I25.10 - Atherosclerotic heart disease of [place] coronary artery without angina pectoris (3) Essential (primary) hypertension Status: Chronic (4) Normocytic anemia Status: Chronic (5) Thrombocytopenia Status: Acute (6) ARDS (adult respiratory distress syndrome) Status: Acute (7) Acute respiratory failure Status: Acute Qualifiers: Respiratory failure complication: hypoxia and hypercapnia Qualified Codes: J96.01 - Acute respiratory failure with hypoxia; J96.02 - Acute respiratory failure with hypercapnia (8) Intellectual disability Status: Chronic (9) Right lower lobe pneumonia Status: Acute Qualifiers: Pneumonia type: due to unspecified organism Qualified Codes: J18.1 - Lobar pneumonia, unspecified organism (10) Septic shock Status: Acute Clinical Quality Measures DVT/VTE Risk/Contraindication: Risk Factor Score Per Nursin RFS Level Per Nursing on Admit: 4+=Very High JAMISON DICK MD Apr 21, 2019 11:30 am
[2019-04-21] MEDS: meTOprolol 5 MG/5 ML (LOPRESSOR) VIAL IV SCH ×2 (12:00→18:00)
--- NOTE | 2019-04-21 12:59 | NUR ---
"RD ASSESSMENT PMHx: intellectual disability; CAD; CHF; HTN; hypercholesterolemia PT INTERACTION: Note pt is in negative pressure isolation d/t suspicion of COVID19, per Elizabeth SCANLON. Note all diet hx is per chart review. Pt avg PO intake <20% x2d. No reports of emesis or loose stools. Note last BM on 04/19 and pt not currently on bowel regimen. Note unable to determine recent wt hx, per chart review. ABNORMAL NUTRITION-RELATED LAB VALUES LOW: Ca 8.1 HIGH: K 5.3; BUN 29; cr 1.70 Est. kcal needs: 1336-1736 kcal | 20-25 kcal/kg Est. Pro needs: 59-79 g Pro | 0.8-1.0 g Pro/kg PES STATEMENT: Inadequate oral intake (NI-2.1) related to loss of appetite as evidenced by avg PO intake <20% x2d | chart review INTERVENTION: Continue with current diet order of 2000mg Na diet. Add Ensure Enlive (vary) to meals TID for increased kcal intake. Provides 350 kcal and 13 g Pro per serving. Will continue to follow and reassess as pt needs, intake, and status change. MONITOR/EVALUATE: PO Intake; Plan of Care; Hydration Status; Weight Status; Lab Values Asa Mejia, MS, RD, LD"
[2019-04-21] MEDS: RT-ALBUTEROL/IPRATROPIUM 3 ML (DUONEB) VIAL INH SCH ×4 (15:46→22:20)
[2019-04-21] MEDS ORDERED: meTOprolol 5 MG/5 ML (LOPRESSOR) VIAL IV PRN (18:15)
[2019-04-21] MEDS ORDERED: TROUGH ORDER-PHARMACY XX NR (19:30)
[2019-04-21] MEDS: ENOXAPARIN 40 MG/0.4 ML (LOVENOX) SYR SQ SCH (20:00)
[2019-04-21] MEDS: SIMvastatin 20 MG (ZOCOR) TAB PO SCH (20:01)
--- NOTE | 2019-04-21 20:40 | NUR ---
RT CALLED TO ROOM, PT SPO2 64%, FAMILY SCREAMING AT PT, FOUND VAPOTHERM DISCONNECTED FROM NC, REPLACED VAPOTHERM GHISLAINE MORROW IN ROOM Addendum: 04/21/19 at 2228 by CINDY MANCERA RT Amended: Links added.
[2019-04-21] MEDS ORDERED: MELATONIN 3 MG TABLET PO PRN (21:30)
[2019-04-22] VITALS (29 sets, daily range): BP systolic 100–140; BP diastolic 52–92
[2019-04-22] MEDS: NOREPINEPHRINE 4 MG/250 ML 250 ML IV SCH ×4 (00:09→21:04)
[2019-04-22] MEDS: LACTATED RINGERS 1,000 ML IV SCH ×2 (00:10→04:10)
[2019-04-22] MEDS: PIPERACILLIN/TAZO 4.5 GM/NS 100 ML IV SCH ×6 (02:41→21:02)
[2019-04-22] MEDS: RT-ALBUTEROL/IPRATROPIUM 3 ML (DUONEB) VIAL INH SCH ×6 (03:02→22:37)
[2019-04-22 03:14] LABS: BASOPHILS % (AUTO) 0 % (0-10); EOSINOPHILS % (AUTO) 0 % (0-10); HEMATOCRIT 28 % (35-52); HEMOGLOBIN 9.2 G/DL (11.5-16.0); LYMPHOCYTES # (AUTO) 0.5 X 10^3 (1.0-4.0); LYMPHOCYTES % (AUTO) 4 % (12-44); MEAN CORPUSCULAR HEMOGLOBIN 30 PG (25-34); MEAN CORPUSCULAR HGB CONC 33 G/DL (32-36); MEAN CORPUSCULAR VOLUME 91 FL (80-99); MONOCYTES # (AUTO) 0.5 X 10^3 (0.0-1.0); MONOCYTES % (AUTO) 4 % (0-12); NEUTROPHILS # (AUTO) 11.4 X 10^3 (1.8-7.8); NEUTROPHILS % (AUTO) 92 % (42-75); PLATELET COUNT 200 10^3/uL (130-400); WHITE BLOOD COUNT 12.3 10^3/uL (4.3-11.0)
[2019-04-22] MEDS: NS IV 1000 ML 1,000 ML IV SCH ×2 (03:16→06:03)
[2019-04-22 03:30] LABS: CALCIUM 7.5 MG/DL (8.5-10.1); CREATININE SERUM 2.1 MG/DL (0.60-1.30); MAGNESIUM 1.9 MG/DL (1.6-2.4); PHOSPHORUS 3.1 MG/DL (2.3-4.7); POTASSIUM 3.1 MMOL/L (3.6-5.0)
--- NOTE | 2019-04-22 03:37 | Pulmonary Progress Note ---
ISA RODRIGUEZ MEDICAL STUDENT 04/22/19 0337: Subjective Date Seen by a Provider: Apr 22, 2019 Subjective/Events-last exam Patient has been placed on isolation for COVID19 work up. She went into acute respiratory distress yesterday and was placed on Vapotherm. Sepsis Event Evaluation Height, Weight, BMI Height: '" Weight: lbs. oz. kg; 28.00 BMI Method: Focused Exam Lactate Level 04/19/19 12:10: Lactic Acid Level 2.71*H 04/19/19 16:09: Lactic Acid Level 0.79 04/21/19 07:45: Lactic Acid Level 1.73 Exam Exam Vital Signs Date Time Temp Pulse Resp B/P (MAP) Pulse Ox O2 Delivery O2 Flow Rate FiO2 04/22/19 03:02 94 Vapotherm 30.00 60 04/22/19 03:00 113 23 100/66 (77) Vapotherm 30.00 50.00 04/22/19 02:00 104 25 114/66 (82) 96 Vapotherm 30.00 50.00 04/22/19 01:00 107 27 110/65 (80) 95 Vapotherm 30.00 50.00 04/22/19 01:00 107 04/22/19 00:09 110 108/66 04/22/19 00:00 103 25 108/66 (80) 94 Vapotherm 30.00 50.00 04/22/19 00:00 92 Vapotherm 30.00 50 04/21/19 23:00 109 27 107/63 (78) 98 Vapotherm 30.00 50.00 04/21/19 22:18 97 Vapotherm 30.00 60 04/21/19 22:00 107 22 88/57 (67) 96 Vapotherm 30.00 50.00 04/21/19 21:00 111 25 97/64 (75) 97 Vapotherm 30.00 50.00 04/21/19 20:00 92 Vapotherm 30.00 50 04/21/19 20:00 36.7 04/21/19 20:00 112 33 108/85 (93) 98 Vapotherm 30.00 50.00 04/21/19 19:04 98 Vapotherm 30.00 50 04/21/19 19:00 108 28 109/65 (80) 96 Vapotherm 30.00 50.00 04/21/19 19:00 108 04/21/19 18:00 120 39 108/74 (85) 95 Vapotherm 30.00 50.00 04/21/19 17:00 115 45 113/74 (87) 96 Vapotherm 30.00 35.00 04/21/19 16:32 36.6 04/21/19 16:00 121 26 117/85 (96) 95 Vapotherm 30.00 35.00 04/21/19 15:49 94 Vapotherm 30.00 35 04/21/19 15:17 Vapotherm 30.00 35.00 04/21/19 15:16 95 Vapotherm 30.00 35 04/21/19 15:00 103 28 112/76 (88) 92 NIV Bilevel 25.00 04/21/19 14:00 100 33 110/71 (84) 93 NIV Bilevel 25.00 04/21/19 13:32 NIV Bilevel 25.00 04/21/19 13:00 110 04/21/19 13:00 107 37 118/80 (93) 94 NIV Bilevel 30.00 04/21/19 12:30 NIV Bilevel 30.00 04/21/19 12:00 100 20 118/84 (95) 100 NIV Bilevel 35.00 04/21/19 12:00 96 NIV Bilevel 8.00 25 04/21/19 11:00 105 32 115/85 (95) 100 NIV Bilevel 35.00 04/21/19 10:00 96 25 80/53 (62) 96 NIV Bilevel 35.00 04/21/19 09:27 34 95 35.00 04/21/19 09:20 NIV Bilevel 35.00 04/21/19 09:00 124 29 98 High Flow N/C 7.00 04/21/19 08:51 High Flow N/C 7.00 04/21/19 08:00 95 High Flow N/C 8.00 04/21/19 08:00 129 27 117/74 (88) 96 High Flow N/C 6.00 04/21/19 07:00 123 32 125/92 (103) 79 High Flow N/C 6.00 04/21/19 07:00 124 04/21/19 06:00 125 29 119/86 (97) High Flow N/C 6.00 04/21/19 05:00 125 105/76 (86) 95 High Flow N/C 6.00 04/21/19 04:00 128 19 116/82 (93) 95 High Flow N/C 6.00 04/21/19 04:00 High Flow N/C 8.00 I & O 04/22/19 07:00 Intake Total 525 ml Output Total 2550 ml Balance -2024 ml Height & Weight Height: '" Weight: lbs. oz. kg; 28.00 BMI Method: General Appearance: Chronically ill, Moderate Distress HEENT: PERRL/EOMI; No Scleral Icterus (L), No Scleral Icterus (R) Neck: Supple, Limited Range of Motion Respiratory: Accessory Muscle Use, Decreased Breath Sounds, Rhonci Cardiovascular: No JVD, No Murmur, Tachycardia Capillary Refill: Less Than 3 Seconds Gastrointestinal: non tender, soft Extremity: Normal Capillary Refill, No Calf Tenderness, No Pedal Edema Neurologic/Psychiatric: Alert, Other (oriented to person and place) Skin: Normal Color Lymphatic: No Adenopathy Results Lab Laboratory Tests 04/20/19 03:45 04/21/19 03:00 04/22/19 02:54 Assessment/Plan Assessment/Plan Acute Respiratory Distress -ABG yesterday showed significant respiratory acidosis with pH of 7.16. -Requiring Vapotherm 30 L/min @ 60% FiO2 -Negative pressure/droplet precautions. Work up for COVID19. PNA with severe sepsis/ septic shock -- Pt has hx of MRSA -Procalcitonin trending upward, 1.59 yesterday. Lactic acid decreased to 1.73. WBC slightly improved at 12.3 today. -repeat procalcitonin, lactic acid today. -Negative for MRSA. Vanc discontinued yesterday. -Continue Zosyn. -Solucortef discontinued. -Peripheral line culture positive for coag negative staph----likely contaminant -Respiratory viral panel---pending Hypokalemia -Replete with KCl 40mEq IV JO -Cr increased today at 2.10, up from 1.70 yesterday -Urine output increased tenfold since yesterday. Anemia -Hgb 9.2 today, down from 11 yesterday. -Nursing reporting significant bloody nose. Acute on Chronic CHF -[facility] 04/20/2019 ECHO: EF 40-45% -12/2018 ECHO: EF 20% NSTEMI with CAD -Mildly elevated troponin, Cardiology following -ASA 81mg and Simvastatin 20mg Intellectual Disability DVT/GI ppx -Lovenox 40mg SQ -Protonix 40mg IV ABRAHAMKATE BEGUM 04/22/19 0448: Subjective Time Seen by a Provider: 04:42 Subjective/Events-last exam Pt is on 60 % Vapotherm and desaturates very quickly Exam Exam General Appearance: Chronically ill, Moderate Distress HEENT: PERRL/EOMI; No Scleral Icterus (L), No Scleral Icterus (R) Neck: Limited Range of Motion Respiratory: Accessory Muscle Use, Decreased Breath Sounds, Rhonci Cardiovascular: No JVD, No Murmur, Tachycardia Gastrointestinal: non tender, soft Extremity: Normal Capillary Refill, No Calf Tenderness, No Pedal Edema Neurologic/Psychiatric: Alert Skin: Normal Color Lymphatic: No Adenopathy Assessment/Plan Assessment/Plan Acute Respiratory Distress -Pt was given Lasix 80mg yesterday per cardiology. No improvement in respir atory status. -Renal failure is worse after lasix and pt became hypotensive. -HOLD LASIX PLEASE -ABG -- Repeat -Requiring Vapotherm 30 L/min @ 60% FiO2 -Negative pressure/droplet precautions. Work up for COVID19. PNA with severe sepsis/ septic shock -- Pt has hx of MRSA -Procalcitonin trending upward, 1.59 yesterday. Lactic acid decreased to 1.73. WBC slightly improved at 12.3 today. -Negative for MRSA. Vanc discontinued yesterday. -Continue Zosyn. -Peripheral line culture positive for coag negative staph----likely contaminant -Respiratory viral panel---pending Hypokalemia -Replete with KCl 40mEq IV JO -Cr increased today at 2.10, up from 1.70 yesterday -Urine output increased tenfold since yesterday. Anemia -Hgb 9.2 today, down from 11 yesterday. -Nursing reporting significant bloody nose. Acute on Chronic CHF -[facility] 04/20/2019 ECHO: EF 40-45% -12/2018 ECHO: EF 20% NSTEMI with CAD -Mildly elevated troponin, Cardiology following -ASA 81mg and Simvastatin 20mg Intellectual Disability DVT/GI ppx -Lovenox 40mg SQ -Protonix 40mg IV ISA RODRIGUEZ MEDICAL STUDENT Apr 22, 2019 03:37 KATE ROSARIO DO Apr 22, 2019 04:48
[2019-04-22 03:51] LABS: BAND NEUTROPHILS 1 %; LYMPHOCYTES % (MANUAL) 1 %; MONOCYTES % (MANUAL) 4 %; NEUTROPHILS % (MANUAL) 94 %
[2019-04-22 03:52] LABS: HYPOCHROMASIA MODERATE
[2019-04-22] MEDS: POTASSIUM CL 10MEQ/50ML IVPB 50 ML IV SCH ×4 (05:20→08:15)
[2019-04-22] MEDS: MAGNESIUM 1 GM/100 ML IVPB 100 ML IV SCH (05:20)
[2019-04-22] MEDS: KCL 20 MEQ TAB (K-DUR) PO SCH (05:20)
[2019-04-22] MEDS ORDERED: DexMEDEtomidine 250 ML DRIP 250 ML IV ONE (05:24)
[2019-04-22] MEDS: D5 LR IV SOLUTION 1,000 ML IV SCH ×3 (06:03→18:29)
[2019-04-22] MEDS: DEXMEDETOMIDINE IV SCH (06:09)
[2019-04-22 06:30] LABS: ABG BASE EXCESS -1.6 MMOL/L (-2.5-2.5); ABG OXYGEN SATURATION 94 % (94-100); ABG PCO2 48 MMHG (35-45); ABG PO2 77 MMHG (79-93); ABG TCO2 24.8 MMOL/L (21.0-31.0)
[2019-04-22 06:36] LABS: ABG PH 7.32 (7.37-7.43); ALLENS TEST YES-POS; INSPIRED O2 60%
[2019-04-22 06:37] LABS: PATIENT TEMP 100.7; VENTILATOR NO
[2019-04-22] MEDS ORDERED: NS IV 1000 ML 1,000 ML ONE ×3 (06:51→13:40)
[2019-04-22] MEDS ORDERED: PROPOFOL DRIP (ICU) 100 ML IV ONE (07:04)
--- NOTE | 2019-04-22 07:24 | NUR ---
DR ROSARIO IN ROOM TO INTUBATE PT. 0724 4 MG VERSED GIVEN AND 50 OF PROP. 0727- SIZE 8.0 ET TUBE PLACED BY DR VALADEZ MED STUDENT PLACEMENT CONFIRMED WITH COLOR CHANGE CO2 AND TUBE IS POSITIONED AT 24 AT THE LIPS. SECURED BY RT WITH ETAD. VS HR-102- RR-28-SPO2 99% AND BP 69/48 BOLUS FLUIDS RUNNING AT THIS TIME. 0732 OG PLACED VS- HR-93, RR-29, SPO2 99% AND BP 71/50 BOLUS FLUIDS CONTINUE AND PT PLACED IN [place]. 0730 RESTRAINTS APPLIED 0735 PT FIGHTING VENT PROP DRIP STARTED AT 20. 0805 -LEVO STARTED AT-0.03 0810- LEVO INCREASED TO 0.06 0825- LEVO INCREASED TO 0.1
[2019-04-22] MEDS ORDERED: DexMEDEtomidine 250 ML DRIP 250 ML IV SCH (08:00)
[2019-04-22] MEDS ORDERED: HALOPERIDOL 5 MG/ML (HALDOL) AMP IV PRN (08:00)
[2019-04-22] MEDS ORDERED: PROPOFOL DRIP (ICU) 100 ML IV SCH (08:00)
--- NOTE | 2019-04-22 08:01 | Diagnostic Imaging Report ---
INDICATION: Pneumonia COMPARISON: 04/21/2019 FINDINGS: Single view of the chest demonstrates persistent but decreased bilateral pulmonary infiltrates. There is new small bilateral pleural effusions. The heart is prominent. There is no pneumothorax. Left IJ catheter stable. IMPRESSION: 1. Improving aeration of both lungs. 2. New bilateral pleural effusions. Dictated by: Dictated on workstation # [id number]
[2019-04-22] MEDS: PROPOFOL DRIP (ICU) 100 ML IV SCH ×3 (08:21→21:53)
--- NOTE | 2019-04-22 08:27 | Physical Therapy Progress Note ---
Therapy Progress Note Patient currently intubated and sedated. Will monitor patient status and start PT when appropriate. FABIENNE ALEJO PT Apr 22, 2019 08:27
[2019-04-22] MEDS ORDERED: FUROSEMIDE 40 MG/4 ML INJ (LASIX) IVP SCH (09:00)
[2019-04-22] MEDS: PANTOPRAZOLE 40 MG (PROTONIX) VIAL IV SCH (09:01)
[2019-04-22] MEDS: TICAGRELOR 90 MG TABLET (BRILINTA) PO SCH ×2 (09:01→21:02)
[2019-04-22] MEDS: ASPIRIN 81 MG CHEW (CHILDREN'S ASA) PO SCH (09:01)
[2019-04-22 09:18] LABS: ABG BASE EXCESS -3.8 MMOL/L (-2.5-2.5); ABG OXYGEN SATURATION 99 % (94-100); ABG PCO2 36 MMHG (35-45); ABG PH 7.37 (7.37-7.43); ABG PO2 126 MMHG (79-93); ABG TCO2 21.6 MMOL/L (21.0-31.0); ALLENS TEST YES-POS; INSPIRED O2 60; PATIENT TEMP 37.5; VENTILATOR YES
--- NOTE | 2019-04-22 09:20 | Diagnostic Imaging Report ---
INDICATION: Respiratory failure. Frontal chest obtained at 09:01 a.m. and compared to 04/22/2019 at 03:01 a.m. FINDINGS: There is a new ET tube in place with tip in the lower trachea just above the salty. NG tube tip is below the film. Left IJ central line is unchanged tip overlying the SVC. There is cardiomegaly with central vascular congestion and diffuse interstitial edema versus infiltrate. There is no pneumothorax. IMPRESSION: Patient has been intubated since the prior study. There is cardiomegaly with central vascular congestion with diffuse interstitial edema versus infiltrate. Dictated by: Dictated on workstation # [id number]
--- NOTE | 2019-04-22 09:28 | Progress Note - Hospitalist ---
Subjective HPI/CC On Admission Date Seen by Provider: Apr 22, 2019 Time Seen by Provider: 09:25 Pt is a 54yoCF with a PMH of intellectual disability, CAD s/p recent stent placement in [place], CHF, HTN who presented to the ER due to fever. She is unable to provide any history. Her mother is at bedside and states that she has been sick for the last week and was seen at multiple clinics regarding this and was told it was viral. Her fever continued and yesterday she appeared worse to her mom who brought her to the ER for evaluation and she was found to have septic schok due to pneumonia. She was admitted to the ICU for pressors and IV abx. She has improved over night and is now off pressors. Patient herself has no complaints and happily tells me about her 6 brothers and 1 sister. Subjective/Events-last exam Pt worsened overnight. Was intuabted this AM by Dr Spencer. [facility] sent report that COVID19 testing is negative. Focused Exam Lactate Level 04/19/19 12:10: Lactic Acid Level 2.71*H 04/19/19 16:09: Lactic Acid Level 0.79 04/21/19 07:45: Lactic Acid Level 1.73 Objective Exam Vital Signs Vital Signs Date Time Temp Pulse Resp B/P (MAP) Pulse Ox O2 Delivery O2 Flow Rate FiO2 04/22/19 08:21 93 86/58 04/22/19 08:12 22 96 60 04/22/19 06:00 Vapotherm 30.00 60.00 04/21/19 20:00 36.7 Capillary Refill : Less Than 3 Seconds General Appearance: Chronically ill, Other (sedated and intubated) Respiratory: Rhonci, Other (intaubted) Cardiovascular: No Murmur, Tachycardia Gastrointestinal: Normal Bowel Sounds, Soft Genital/Rectal: Other (mitchell in place) Neurologic/Psychiatric: Other (sedated, does not respond to verbal stimuli) Results/Procedures Lab Laboratory Tests 04/22/19 02:54 Patient resulted labs reviewed. Imaging: Reviewed Imaging Report Assessment/Plan Assessment and Plan Assess & Plan/Chief Complaint Septic Shock RLL Pneumonia Acute Hypercapnic and Hypoxemic Respiratory Failure Currently back on pressors Intubated 04/21 Pulm consulted, appreciate recs Cultures with NGTD, Flu negative Continue Zosyn COVID19 testing negative CAD CHF Elevated troponin Recent stent placed in December Remains on ASA and Plavix Cardiology consulted, appreciate recs Thrombocytopenia- resolved today Trend Normal INR Anemia -stable Likely dilutional trend JO Hyperkalemia Bicarb given for HyperK and metabolic acidosis Continue NS at 150ml/hr and DC LR DVT ppx: Lovenox Critical Care Critically Ill Patient Diagnosis/Problems Diagnosis/Problems (1) JO (acute kidney injury) Status: Acute (2) CAD (coronary artery disease) Qualifiers: Coronary Disease-Associated Artery/Lesion type: [place] artery [place] vs. transplanted heart: [place] heart Associated angina: without angina Qualified Codes: I25.10 - Atherosclerotic heart disease of [place] coronary artery without angina pectoris (3) Essential (primary) hypertension Status: Chronic (4) Normocytic anemia Status: Chronic (5) Thrombocytopenia Status: Acute (6) ARDS (adult respiratory distress syndrome) Status: Acute (7) Acute respiratory failure Status: Acute Qualifiers: Respiratory failure complication: hypoxia and hypercapnia Qualified Codes: J96.01 - Acute respiratory failure with hypoxia; J96.02 - Acute respiratory failure with hypercapnia (8) Intellectual disability Status: Chronic (9) Right lower lobe pneumonia Status: Acute Qualifiers: Pneumonia type: due to unspecified organism Qualified Codes: J18.1 - Lobar pneumonia, unspecified organism (10) Septic shock Status: Acute Clinical Quality Measures DVT/VTE Risk/Contraindication: Risk Factor Score Per Nursin RFS Level Per Nursing on Admit: 4+=Very High JAMISON DICK MD Apr 22, 2019 09:28
--- NOTE | 2019-04-22 09:35 | Occ Therapy Progress Note ---
Therapy Progress Note OT order received, chart reviewed. Pt. is currently on sedation and ventilator support. Will continue to monitor and will assess when medically stable. 0935 CHRISTOPH WEBER OT Apr 22, 2019 09:35
--- NOTE | 2019-04-22 10:48 | Pulmonary Procedures ---
Pulmonary Procedures Date of Procedure Date of Service: Apr 22, 2019 Reason for Intubation: Acute respiratory failure Time of Intubation: 10:48 Intubation Method: orotracheal Tube Size: 8 Medications: Propofol, Versed Positive End Tide CO2: Yes Breath Sounds after Intubation: bilateral-equal Intubation Complications: no complications Post Intubation Xray: Yes KATE ROSARIO DO Apr 22, 2019 10:48
[2019-04-22] MEDS ORDERED: AZITHROMYCIN INJECTION 500 MG in NS (IVPB) 250 ML IV ONE (11:15)
[2019-04-22] MEDS ORDERED: MIDAZOLAM 5 MG/5 ML (VERSED) VIAL IJ ONE (12:57)
--- NOTE | 2019-04-22 13:42 | Anesthesia-Procedure Note ---
Procedures/Interventions Procedure Start/Stop/Diagnosis Date of Procedure: Apr 22, 2019 Start Time: 13:15 Referring Physician: Johanna Stop Time: 13:30 Arterial Line Arterial Line Catheter: 20G Type: Radial Location: Left Procedure: prepped, draped in sterile fashion, good wave-form was obtained, patient tolerated procedure well, no immediate complications, post procedure area cleaned, post procedure dressing applied Additional Procedures Procedures Ultrasound guidance. MAVIS NEWELL CRNA Apr 22, 2019 13:41
[2019-04-22] MEDS ORDERED: NS IV 1000 ML 1,000 ML IV SCH (14:00)
--- NOTE | 2019-04-22 14:26 | NUR ---
"Received dietary consult regarding pt's vent status. Est. kcal needs: 8610-2690 kcal | 20-25 kcal/kg Est. Pro needs: 55-69 g Pro | 0.8-1.0 g Pro/kg If pt is to remain NPO for more than 3days, would recommend the following TF: Jevity 1.5 @ goal rate of 40ml/hr. Begin at 10ml/hr and increase by 10ml q6h as tolerated. Monitor gastric residuals for tolerance. At goal rate, provides 1440 kcal (21 kcal/kg); 61 g pro (0.9 g Pro/kg); and 730ml free water. Flush with 75ml H2O q4h for hydration status. With flushes, provides 1180ml free water. Will continue to follow and reassess as pt needs, intake and status change. Asa Mejia, MS, RD, LD"
--- NOTE | 2019-04-22 14:59 | Diagnostic Imaging Report ---
PROCEDURE: US Venous Lower Ext Tima. TECHNIQUE: Multiple Real-time grayscale images were obtained over the lower extremities in various projections bilaterally. Additional duplex Doppler and color Doppler images were also obtained. INDICATION: Pneumonia, sepsis. COMPARISON: There are no prior studies available for comparison. FINDINGS: This exam is less than optimal as portions of the mid superficial femoral vein of each lower extremity were not well-visualized due to soft tissue edema. The deep venous system, where visualized, shows generally good blood flow and compressibility at all levels. There is no sign of a deep venous thrombosis of either lower extremity. IMPRESSION: There is no evidence for deep venous thrombosis of either lower extremity; however, the mid portions of the superficial femoral veins were not well-visualized due to soft tissue edema. Dictated by: Dictated on workstation # [id number]
--- NOTE | 2019-04-22 15:25 | NUR ---
attempt to obtain picc line unsuccessful x 1 attempt. poor vein availability, not sufficient to support catheter in veins of upper extremity at this time.
[2019-04-22] MEDS ORDERED: LACTATED RINGERS 1,000 ML IV ONE ×2 (16:50→17:00)
[2019-04-22 17:30] LABS: BILIRUBIN,URINE NEGATIVE (NEGATIVE); CLARITY,URINE TURBID; COLOR,URINE YELLOW; GLUCOSE, URINE (UA) NEGATIVE (NEGATIVE); KETONES,URINE NEGATIVE (NEGATIVE); LEUKOCYTE ESTERASE ,URINE TRACE (NEGATIVE); NITRITE,URINE NEGATIVE (NEGATIVE); PH,URINE 5.5 (5-9); PROTEIN,URINE 1+ (NEGATIVE)
[2019-04-22 17:37] LABS: RBC,URINE >100 /HPF
[2019-04-22 17:39] LABS: BACTERIA,URINE MODERATE /HPF
--- NOTE | 2019-04-22 17:50 | Progress Note - Cardiology ---
Cardiology SOAP Progress Note Subjective: Deterioration or resp status. Now on vent Objective: I&O/Vital Signs 04/22/19 04/22/19 04/22/19 04/22/19 06:00 06:09 06:40 07:00 Pulse 120 118 108 112 Resp 32 B/P (MAP) 111/60 (77) 111/60 110/92 (98) Pulse Ox 95 94 O2 Delivery Vapotherm Vapotherm O2 Flow Rate 30.00 30.00 60.00 60.00 04/22/19 04/22/19 04/22/19 04/22/19 07:40 08:00 08:00 08:12 Pulse 87 89 Resp 21 22 B/P (MAP) 101/63 (76) Pulse Ox 97 100 96 O2 Delivery Mechanical Ventilator Mechanical Ventilator Mechanical Ventilator O2 Flow Rate 100.00 100.00 FiO2 100 60 04/22/19 04/22/19 04/22/19 04/22/19 08:17 08:21 09:00 10:00 Pulse 98 93 99 96 Resp 22 B/P (MAP) 71/62 86/58 130/86 (101) 140/90 (107) Pulse Ox 100 100 O2 Delivery Mechanical Ventilator Mechanical Ventilator O2 Flow Rate 100.00 100.00 04/22/19 04/22/19 04/22/19 04/22/19 11:00 11:25 11:27 12:00 Pulse 103 89 101 Resp 21 22 22 B/P (MAP) 124/77 (93) 129/82 (98) Pulse Ox 100 97 96 O2 Delivery Mechanical Ventilator Mechanical Ventilator Mechanical Ventilator O2 Flow Rate 100.00 40.00 40.00 FiO2 30 04/22/19 04/22/19 04/22/19 04/22/19 12:00 12:03 12:32 12:40 Pulse 60 98 B/P (MAP) 128/80 Pulse Ox 97 O2 Delivery Mechanical Ventilator Mechanical Ventilator O2 Flow Rate 25.00 FiO2 25 04/22/19 04/22/19 04/22/19 04/22/19 13:00 13:48 14:07 14:15 Pulse 96 93 96 Resp 22 B/P (MAP) 129/87 (101) 101/55 Pulse Ox 97 96 O2 Delivery Mechanical Ventilator Mechanical Ventilator O2 Flow Rate 25.00 21.00 FiO2 21 04/22/19 00:00 Intake Total 475 ml Output Total 2050 ml Balance -1575 ml Constitutional: well-developed, well-nourished, other (on vent, unresonsive) Respiratory: chest expansion is symmetric, chest is bilaterally symmetric, rhonchi (scattered), other (diminished breath sounds throughout) Cardiovascular: regular rate-rhythm; No JVD; tachycardia, S1 and S2, systolic murmur Gastrointestional: soft, round, audible bowel sounds Extremities: swelling (mild t) Neurologic/Psychiatric: other (cannot cooperate with neuro exam; on vent; unresponsive) Skin: No rash on exposed areas, No ulcerations on exposed areas Results/Procedures: Labs Laboratory Tests 04/22/19 02:54: White Blood Count 12.3H, Red Blood Count 3.08L, Hemoglobin 9.2L, Hematocrit 28L, Mean Corpuscular Volume 91, Mean Corpuscular Hemoglobin 30, Mean Corpuscular Hemoglobin Concent 33, Red Cell Distribution Width 16.0H, Platelet Count 200, Mean Platelet Volume 12.0H, Neutrophils (%) (Auto) 92H, Lymphocytes (%) (Auto) 4L, Monocytes (%) (Auto) 4, Eosinophils (%) (Auto) 0, Basophils (%) (Auto) 0, Neutrophils # (Auto) 11.4H, Lymphocytes # (Auto) 0.5L, Monocytes # (Auto) 0.5, Eosinophils # (Auto) 0.0, Basophils # (Auto) 0.0, Neutrophils % (Manual) 94, L ymphocytes % (Manual) 1, Monocytes % (Manual) 4, Band Neutrophils 1, Hypochromasia MODERATE, Sodium Level 142, Potassium Level 3.1L, Chloride Level 106, Carbon Dioxide Level 20L, Anion Gap 16H, Blood Urea Nitrogen 33H, Creatinine 2.10H, Estimat Glomerular Filtration Rate 24, BUN/Creatinine Ratio 16, Glucose Level 134H, Calcium Level 7.5L, Phosphorus Level 3.1, Magnesium Level 1.9, Triglycerides Level 314H 04/22/19 06:20: Blood Gas Puncture Site LEFT RADIAL, Blood Gas Patient Temperature 100.7, Arterial Blood pH 7.32*L, Arterial Blood Partial Pressure CO2 48H, Arterial Bloo d Partial Pressure O2 77L, Arterial Blood HCO3 23, Arterial Blood Total CO2 24.8, Arterial Blood Oxygen Saturation 94, Arterial Blood Base Excess -1.6, Onesimo Test YES-POS, Blood Gas Ventilator Setting NO, Blood Gas Inspired Oxygen 60% 04/22/19 06:45: Urine Color YELLOW, Urine Clarity TURBID, Urine pH 5.5, Urine Specific Finger 1.020, Urine Protein 1+H, Urine Glucose (UA) NEGATIVE, Urine Ketones NEGATIVE, Urine Nitrite NEGATIVE, Urine Bilirubin NEGATIVE, Urine Urobilinogen 0.2, Urine Leukocyte Esterase TRACEH, Urine RBC (Auto) 3+H, Urine RBC >100H, Urine WBC 2-5, Urine Crystals NONE, Urine Bacteria MODERATEH, Urine Casts NONE, Urine Mucus NEGATIVE, Urine Culture Indicated YES 04/22/19 09:10: Blood Gas Puncture Site LT BRACHIAL, Blood Gas Patient Temperature 37.5, Arterial Blood pH 7.37, Arterial Blood Partial Pressure CO2 36, Arterial Blood Partial Pressure O2 126H, Arterial Blood HCO3 21L, Arterial Blood Total CO2 21.6, Arterial Blood Oxygen Saturation 99, Arterial Blood Base Excess -3.8L, Onesimo Test YES-POS, Blood Gas Ventilator Setting YES, Blood Gas Inspired Oxygen 60 Microbiology 04/20/19 MRSA Screen - Final, Complete MRSA not isolated 04/19/19 Urine Culture - Final, Complete NO GROWTH 04/19/19 Blood Culture - Preliminary, Resulted No growth Laboratory Tests 04/21/19 03:00 04/22/19 02:54 A/P: Assessment: Acute resp distress - multifactorial (reasons listed below) Pneumonia with sepsis - management per Medical/Pulmonary services Acute on chronic systolic/diastolic CHF - treat with diuretics Mildly elevated troponin, likely Type 2 OK d/t sepsis and hypotension ICM - document LVEF of Dec 2018 at [facility] [place] by Dr. Martin is 20%. Currently being managed by Dr. Santacruz at [place], [place]. Most recent echo of April 20, 2019 showed LVEF 40-45%. Hypokinesis of the apical anteroseptal myocardium. Grade 1 diastolic dysfunction. Mild MR. RVSP approx 29 mmHg H/O NSTEMI in Dec 2018 - cardiac cath of Dec 17, 2018 at [facility] [place] by Dr. 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 80% ostial occlusion of RCA with Synergy stent, 3.0 x 20 mm, placed. H/O VSD and PDA repair as a child JO 3 likely d/t hypotension and sepsis Reported intolerance to BB (d/t hypotension in the past, per mother's report) Plan: Complex management due to multiple comorbidities Pneumonia with sepsis with worsening resp status - management per Hospitalist and ICU sve H/o CAD with recent stenting at [facility] [place] (Dec 2018) - continue Brilinta and ASA Acute on chronic systolic CHF - treat with diuretics Monitor lab closely I discussed her CV issues with her mother on the phone today Dr Galeano covering Card TAY Bentley MD FACP FAC CCDS Apr 22, 2019 17:50
[2019-04-22] MEDS: ENOXAPARIN 30 MG/0.3 ML (LOVENOX) SYR SC SCH (21:02)
[2019-04-22] MEDS: SIMvastatin 20 MG (ZOCOR) TAB PO SCH (21:02)
[2019-04-23] VITALS (29 sets, daily range): BP systolic 85–150; BP diastolic 46–82
[2019-04-23] MEDS: D5 LR IV SOLUTION 1,000 ML IV SCH ×3 (01:31→16:59)
[2019-04-23] MEDS: RT-ALBUTEROL/IPRATROPIUM 3 ML (DUONEB) VIAL INH SCH ×5 (02:10→22:05)
[2019-04-23 02:45] LABS: ABG BASE EXCESS -5.8 MMOL/L (-2.5-2.5); ABG OXYGEN SATURATION 95 % (94-100); ABG PCO2 27 MMHG (35-45); ABG PH 7.44 (7.37-7.43); ABG PO2 66 MMHG (79-93); ABG TCO2 18.7 MMOL/L (21.0-31.0)
[2019-04-23 02:49] LABS: ALLENS TEST POS; INSPIRED O2 21%; PATIENT TEMP 36; VENTILATOR YES
[2019-04-23 02:59] LABS: BASOPHILS % (AUTO) 0 % (0-10); EOSINOPHILS # (AUTO) 0.1 10^3/uL (0.0-0.3); EOSINOPHILS % (AUTO) 1 % (0-10); HEMATOCRIT 27 % (35-52); LYMPHOCYTES # (AUTO) 0.7 X 10^3 (1.0-4.0); LYMPHOCYTES % (AUTO) 5 % (12-44); MEAN CORPUSCULAR HEMOGLOBIN 29 PG (25-34); MEAN CORPUSCULAR HGB CONC 33 G/DL (32-36); MEAN CORPUSCULAR VOLUME 88 FL (80-99); MEAN PLATELET VOLUME 12.2 FL (7.4-10.4); MONOCYTES # (AUTO) 0.5 X 10^3 (0.0-1.0); MONOCYTES % (AUTO) 4 % (0-12); NEUTROPHILS # (AUTO) 10.6 X 10^3 (1.8-7.8); NEUTROPHILS % (AUTO) 89 % (42-75); PLATELET COUNT 198 10^3/uL (130-400); RED CELL DISTRIBUTION WIDTH 15.8 % (10.0-14.5)
[2019-04-23 03:37] LABS: CALCIUM 6.9 MG/DL (8.5-10.1); CREATININE SERUM 2.2 MG/DL (0.60-1.30); MAGNESIUM 1.7 MG/DL (1.6-2.4); PHOSPHORUS 1.9 MG/DL (2.3-4.7)
--- NOTE | 2019-04-23 03:38 | Pulmonary Progress Note ---
Subjective Date Seen by a Provider: Apr 23, 2019 Subjective/Events-last exam Patient sedated on vent. No acute events overnight. Review of Systems unable to answer ROS as patient is sedated on vent Sepsis Event Evaluation Height, Weight, BMI Height: '" Weight: lbs. oz. kg; 28.00 BMI Method: Focused Exam Lactate Level 04/21/19 07:45: Lactic Acid Level 1.73 Exam Exam Vital Signs Date Time Temp Pulse Resp B/P (MAP) Pulse Ox O2 Delivery O2 Flow Rate FiO2 04/23/19 02:10 81 22 96 21 04/23/19 02:10 96 Mechanical Ventilator 21 04/23/19 01:00 84 04/23/19 00:00 97 Mechanical Ventilator 21 04/22/19 23:00 86 21 130/67 (88) 96 Mechanical Ventilator 21.00 04/22/19 22:37 96 Mechanical Ventilator 21 04/22/19 22:37 86 22 96 21 04/22/19 22:00 87 21 129/69 (89) 96 Mechanical Ventilator 21.00 04/22/19 21:53 87 130/69 04/22/19 21:04 91 125/67 04/22/19 21:00 90 22 124/67 (86) 95 Mechanical Ventilator 21.00 04/22/19 20:00 97 Mechanical Ventilator 21 04/22/19 20:00 36.0 04/22/19 20:00 95 21 128/68 (88) 96 Mechanical Ventilator 21.00 04/22/19 19:00 98 20 104/56 (72) 95 Mechanical Ventilator 21.00 04/22/19 19:00 100 04/22/19 18:39 93 22 96 21 04/22/19 18:39 96 Mechanical Ventilator 21 04/22/19 18:00 87 29 121/65 (83) 97 Mechanical Ventilator 21.00 04/22/19 17:00 36.6 93 22 118/62 (80) 96 Mechanical Ventilator 21.00 04/22/19 16:00 96 Mechanical Ventilator 21 04/22/19 16:00 36.6 100 21 105/53 (70) 95 Mechanical Ventilator 21.00 04/22/19 15:00 36.9 97 21 113/60 (77) 96 Mechanical Ventilator 21.00 04/22/19 14:15 Mechanical Ventilator 21.00 04/22/19 14:07 96 22 96 21 04/22/19 14:00 37.1 94 29 107/52 (70) 97 Mechanical Ventilator 25.00 04/22/19 13:48 93 101/55 04/22/19 13:00 96 21 129/87 (101) 97 Mechanical Ventilator 25.00 04/22/19 12:40 98 04/22/19 12:32 60 128/80 04/22/19 12:03 Mechanical Ventilator 25.00 04/22/19 12:00 97 Mechanical Ventilator 25 04/22/19 12:00 101 22 129/82 (98) 96 Mechanical Ventilator 40.00 04/22/19 11:27 Mechanical Ventilator 40.00 04/22/19 11:25 89 22 97 30 04/22/19 11:00 103 21 124/77 (93) 100 Mechanical Ventilator 100.00 04/22/19 10:00 96 22 140/90 (107) 100 Mechanical Ventilator 100.00 04/22/19 09:00 99 21 130/86 (101) 100 Mechanical Ventilator 100.00 04/22/19 08:21 93 86/58 04/22/19 08:17 98 71/62 04/22/19 08:12 89 22 96 60 04/22/19 08:00 100 Mechanical Ventilator 100 04/22/19 08:00 87 21 101/63 (76) 97 Mechanical Ventilator 100.00 04/22/19 07:40 Mechanical Ventilator 100.00 04/22/19 07:00 112 32 110/92 (98) 94 Vapotherm 30.00 60.00 04/22/19 06:40 108 04/22/19 06:09 118 111/60 04/22/19 06:00 120 111/60 (77) 95 Vapotherm 30.00 60.00 04/22/19 05:00 131 130/91 (104) 90 Vapotherm 30.00 50.00 04/22/19 04:00 92 Vapotherm 30.00 50 04/22/19 04:00 125 107/74 (85) 91 Vapotherm 30.00 50.00 I & O 04/23/19 07:00 Intake Total 0 ml Output Total 625 ml Balance -625 ml Height & Weight Height: '" Weight: lbs. oz. kg; 28.00 BMI Method: General Appearance: No Apparent Distress, Chronically ill, Other (sedated and intubated) HEENT: PERRL/EOMI, Moist Mucous Membranes; No Scleral Icterus (L), No Scleral Icterus (R) Neck: Supple, Limited Range of Motion Respiratory: Rhonci, Other (intubated) Cardiovascular: Regular Rate, Rhythm, No Murmur, Tachycardia Capillary Refill: Less Than 3 Seconds Gastrointestinal: non tender, soft, abnormal bowel sounds (decreased) Extremity: No Pedal Edema, Other (edema in bilateral hands) Neurologic/Psychiatric: Other (sedated, does not respond to verbal stimuli) Skin: Normal Color, Warm/Dry Lymphatic: No Adenopathy Results Lab Laboratory Tests 04/22/19 02:54 04/23/19 02:18 Assessment/Plan Assessment/Plan Acute Respiratory Distress, P/F=314 -Intubated yesterday, sedated on Precedex and Propofol -Satting at 96% today on 21% FiO2 -ABG improved-- Repeat daily while on vent -Negative for COVID19, droplet precautions discontinued -Bronchoscopy today -HOLD LASIX PLEASE, no respiratory benefit and worsens renal failure PNA with severe sepsis/ septic shock -- Pt has hx of MRSA -Procalcitonin trending upward, 1.59 yesterday. WBC slightly improved at 12.3 today. -Negative for COVID19, negative for MRSA, negative for influenza. -On Zosyn and Zithromax -On Levophed -Left radial PICC line placed yesterday -Urine negative for Legionella and Strep pneumo -Respiratory viral panel---pending UTI -UA positive, culture pending Hypokalemia, persistent -Replete with KCl 100 mEq IV Hypophosphatemia -Replete with Sodium Phos 30mg IV JO -slight increase in Cr today, 2.20 Acute on Chronic CHF -[facility]ia [place] 04/20/2019 ECHO: EF 40-45% -Jamar 12/2018 ECHO: EF 20% NSTEMI with CAD -Mildly elevated troponin, Cardiology following -ASA 81mg and Simvastatin 20mg Intellectual Disability DVT/GI ppx -Lovenox decreased to 30mg SQ given excessive nose bleed yesterday -Protonix 40mg IV ISA RODRIGUEZ MEDICAL STUDENT Apr 23, 2019 03:38
[2019-04-23] MEDS: NOREPINEPHRINE 4 MG/250 ML 250 ML IV SCH ×2 (05:18→16:16)
[2019-04-23] MEDS: PROPOFOL DRIP (ICU) 100 ML IV SCH ×2 (05:18→21:14)
[2019-04-23] MEDS: PIPERACILLIN/TAZO 4.5 GM/NS 100 ML IV SCH ×6 (05:19→21:12)
--- NOTE | 2019-04-23 05:22 | Diagnostic Imaging Report ---
Indication: Lower respiratory infection Portable chest 3:28 AM There is ET tube that projects over trachea. There is NG tube that enters the stomach. Left IJ central line tip projects over the SVC. Heart size is normal. There are diffuse alveolar infiltrates in the lungs that resembles pulmonary edema. IMPRESSION: Diffuse alveolar infiltrate versus pulmonary edema. No significant change compared to the previous day. Dictated by: Dictated on workstation # [id number]
[2019-04-23] MEDS: POTASSIUM CL 10MEQ/50ML IVPB 50 ML IV SCH (05:53)
[2019-04-23] MEDS: MAGNESIUM 1 GM/100 ML IVPB 100 ML IV SCH (05:54)
[2019-04-23] MEDS: KCL 20 MEQ TAB (K-DUR) PO SCH (05:54)
[2019-04-23] MEDS ORDERED: MIDAZOLAM 5 MG/5 ML (VERSED) VIAL IVP ONE (06:00)
[2019-04-23] MEDS ORDERED: fentaNYL INJECTION 100 MCG/2 ML AMP ONE (06:14)
[2019-04-23] MEDS ORDERED: MIDAZOLAM 5 MG/5 ML (VERSED) VIAL ONE (06:14)
[2019-04-23] MEDS ORDERED: POTASSIUM CL 10MEQ/50ML IVPB 50 ML IV SCH (06:15)
--- NOTE | 2019-04-23 06:33 | Pulmonary Procedures ---
Pulmonary Procedures Date of Procedure Date of Service: Apr 23, 2019 Bronch Bronchoscopy with bilateral wash . Preop DX ARDS Postop DX: same Complications: none After informed consent obtained and formal time out pt was sedated using Fentanyl and Versed. Bronchoscope was advanced through the ET tube . An raúl omical tour was undertaken down to the segmental bronchi bilaterally. No endobronchial lesions noted. Bilateral washes were obtained. Pt tolerated procedure well. No complications noted. Stat CXR is pending. KATE ROSARIO DO Apr 23, 2019 06:33
[2019-04-23] MEDS: inSUlin ASPART (NovoLOG) 1 UNIT/0.01 ML (CHARGE PER UNIT) SQ SCH ×4 (06:48→23:42)
--- NOTE | 2019-04-23 07:46 | Cardiology Progress Note ---
Subjective Date Seen by Provider: Apr 23, 2019 Time Seen by Provider: 07:42 Subjective/Events-last exam Patient is sedated and intubated. Events since admission were reviewed Review of Systems General: Other (Sedated and intubated) Focused Exam Lactate Level 04/21/19 07:45: Lactic Acid Level 1.73 Objective-Cardiology Exam Last Set of Vital Signs Vital Signs 04/22/19 04/23/19 04/23/19 20:00 04:00 06:00 Temp 36.0 Pulse 100 Resp 22 B/P (MAP) 150/73 (98) Pulse Ox 96 O2 Delivery Mechanical Ventilator O2 Flow Rate 21.00 FiO2 21 Capillary Refill : Less Than 3 Seconds I&O Intake and Output 04/23/19 00:00 Intake Total 450 ml Output Total 1225 ml Balance -775 ml Intake Oral 100 ml IV Total 350 ml Output Urine Total 1225 ml # Bowel Movements 3 General: Other (Sedated and intubated) HEENT: Atraumatic, PERRLA Neck: Supple, No JVD Lungs: Other (Bilateral rhonchi) Heart: Regular Rate, Normal S1, Normal S2 Abdomen: Normal Bowel Sounds Extremities: No Clubbing, No Cyanosis Skin: No Rashes, No Breakdown Neuro: Other (Sedated and intubated) Psych/Mental Status: Other (Sedated and intubated) Results Lab Laboratory Tests 04/23/19 02:18 A/P-Cardiology Admission Diagnosis Sepsis Septic shock Pneumonia Type II PA Assessment/Plan Sepsis, septic shock, maintained on pressors. Blood pressure is better, trying to wean her off the pressors. Acute respiratory failure, ventilator dependent. Pneumonia, receiving antibiotic, ventilator dependent, had bronchoscopy earlier today. Congestive heart failure, acute on chronic left ventricular systolic dysfunction, previously her ejection fraction was 20 percent on the last echocardiogram on April 20, 2019 showing ejection fraction 40-45 percent with hypokinesia at the apical anterior septum, mild mitral regurgitation, PA pressure 30 mmHg. Coronary artery disease, cardiac catheterization done in December 2018 in [facility] reported chronic total occlusion of the left main arising from the right coronary cusp with no other left sided vessel could be identified, 80 percent ostial right coronary artery stenosis with stenting using Synergy 3 x 20 mm, currently elevated troponin probably type II PA secondary to hypoxemia and multiorgan failure. Acute renal failure, continue to monitor renal function History of VSD and repair as a child Intolerance to beta blockers due to hypotension per family report Clinical Quality Measures DVT/VTE Risk/Contraindication: Risk Factor Score Per Nursin RFS Level Per Nursing on Admit: 4+=Very High FLORENTIN MILLIGAN MD Apr 23, 2019 07:46
--- NOTE | 2019-04-23 08:11 | Physical Therapy Progress Note ---
Therapy Progress Note Patient currently intubated. PT will continue to monitor patient status and initiate treatment when patient is medically stable and able to actively participate with skilled therapy. CINDY SELLERS PT Apr 23, 2019 08:11
[2019-04-23] MEDS ORDERED: LACTATED RINGERS 1,000 ML IV ONE ×3 (08:13→12:47)
--- NOTE | 2019-04-23 08:21 | Diagnostic Imaging Report ---
INDICATION: Post-bronchoscopy check. EXAMINATION: Chest 04/23/2019. COMPARISON: 04/23/2019 at 3:28 a.m. FINDINGS: There is a left-sided jugular line which is stable with tip in the distal SVC. ET tube tip is approximately centimeter from the salty. Feeding tube is coursing beneath the diaphragm. Proximal sideholes just above the expected location of the GE junction. The heart is prominent. Pulmonary vasculature is congested with findings of edema throughout both lung slightly worsened. Increasing bibasilar infiltrates are seen. There are likely bilateral effusions. IMPRESSION: 1. Tubes and lines as discussed above. Slight advancement of the feeding tube advised unless patient has a known large hiatal hernia. 2. Worsening pulmonary edema and bibasilar infiltrates. Dictated by: Dictated on workstation # [id number]
[2019-04-23] MEDS: DEXMEDETOMIDINE IV SCH ×2 (08:22→17:38)
[2019-04-23] MEDS: ASPIRIN 81 MG CHEW (CHILDREN'S ASA) PO SCH (08:23)
[2019-04-23] MEDS: TICAGRELOR 90 MG TABLET (BRILINTA) PO SCH ×2 (08:23→21:12)
[2019-04-23] MEDS: PANTOPRAZOLE 40 MG (PROTONIX) VIAL IV SCH (08:23)
--- NOTE | 2019-04-23 09:04 | Occ Therapy Progress Note ---
Therapy Progress Note Pt. continues on sedation and ventilator support. Will continue to monitor pt. 0904 CHRISTOPH WEBER OT Apr 23, 2019 09:04
[2019-04-23] MEDS: AZITHROMYCIN INJECTION 250 MG in NS (IVPB) 250 ML IV SCH (09:18)
--- NOTE | 2019-04-23 10:16 | Progress Note - Hospitalist ---
Subjective HPI/CC On Admission Date Seen by Provider: Apr 23, 2019 Time Seen by Provider: 08:45 Pt is a 54yoCF with a PMH of intellectual disability, CAD s/p recent stent placement in [place], CHF, HTN who presented to the ER due to fever. She is unable to provide any history. Her mother is at bedside and states that she has been sick for the last week and was seen at multiple clinics regarding this and was told it was viral. Her fever continued and yesterday she appeared worse to her mom who brought her to the ER for evaluation and she was found to have septic schok due to pneumonia. She was admitted to the ICU for pressors and IV abx. She has improved over night and is now off pressors. Patient herself has no complaints and happily tells me about her 6 brothers and 1 sister. Subjective/Events-last exam Pt remains intubated and sedated. No ROS possible. Mom at bedside without complaints. Discussed possibility of transfer to [facility] such as [place] in the future. Focused Exam Lactate Level 04/21/19 07:45: Lactic Acid Level 1.73 04/23/19 07:45: Lactic Acid Level 2.20*H Lactic Acid Level Laboratory Tests Test 04/23/19 07:45 Lactic Acid Level 2.20 MMOL/L (0.50-2.00) *H Objective Exam Vital Signs Vital Signs Date Time Temp Pulse Resp B/P (MAP) Pulse Ox O2 Delivery O2 Flow Rate FiO2 04/23/19 09:00 91 21 112/56 (74) 97 Mechanical Ventilator 21.00 04/23/19 08:00 36.1 04/23/19 07:52 30 Capillary Refill : Less Than 3 Seconds General Appearance: Chronically ill, Other (intubated and sedated) Respiratory: Rhonci, Other (on vent) Cardiovascular: Regular Rate, Rhythm, No Murmur Gastrointestinal: Normal Bowel Sounds, Soft Genital/Rectal: Other (mitchell in place) Extremity: Other Neurologic/Psychiatric: Other (sedated, appears comfortable) Results/Procedures Lab Laboratory Tests 04/23/19 02:18 Patient resulted labs reviewed. Imaging: Reviewed Imaging Report Assessment/Plan Assessment and Plan Assess & Plan/Chief Complaint Septic Shock RLL Pneumonia Acute Hypercapnic and Hypoxemic Respiratory Failure Intubated 04/21 ON pressors Pulm consulted, appreciate recs Cultures with NGTD, Flu negative Strep pna and legionella antigens negative Continue Zosyn, Azithro COVID19 testing negative CAD CHF Elevated troponin Recent stent placed in December Remains on ASA and Plavix Cardiology consulted, appreciate recs JO Creatinine 2.2 this AM Up from 1.28 UOP adequate, no acidosis Anemia -stable Likely dilutional trend Thrombocytopenia- resolved DVT ppx: Lovenox Critical Care Critically Ill Patient Diagnosis/Problems Diagnosis/Problems (1) JO (acute kidney injury) Status: Acute (2) CAD (coronary artery disease) Qualifiers: Coronary Disease-Associated Artery/Lesion type: [place] artery [place] vs. transplanted heart: k[place]ia heart Associated angina: without angina Qualified Codes: I25.10 - Atherosclerotic heart disease of [place] coronary artery without angina pectoris (3) Essential (primary) hypertension Status: Chronic (4) Normocytic anemia Status: Chronic (5) Thrombocytopenia Status: Acute (6) ARDS (adult respiratory distress syndrome) Status: Acute (7) Acute respiratory failure Status: Acute Qualifiers: Respiratory failure complication: hypoxia and hypercapnia Qualified Codes: J96.01 - Acute respiratory failure with hypoxia; J96.02 - Acute respiratory failure with hypercapnia (8) Intellectual disability Status: Chronic (9) Right lower lobe pneumonia Status: Acute Qualifiers: Pneumonia type: due to unspecified organism Qualified Codes: J18.1 - Lobar pneumonia, unspecified organism (10) Septic shock Status: Acute Clinical Quality Measures DVT/VTE Risk/Contraindication: Risk Factor Score Per Nursin RFS Level Per Nursing on Admit: 4+=Very High JAMISON DICK MD Apr 23, 2019 10:16
[2019-04-23] MEDS ORDERED: LIDOCAINE PF 1% 2 ML AMP IJ ONE (10:44)
[2019-04-23] MEDS ORDERED: LIDOCAINE PF 2% 5 ML (XYLOCAINE) VIAL INJ ONE (10:44)
--- NOTE | 2019-04-23 11:00 | NUR ---
Pastoral care visit w/pts mother at bedside. Offered support and prayer.
--- NOTE | 2019-04-23 15:05 | NUR ---
CM/SS: Visited with pt's mother as to status of pt Plan: Referral made to [facility] in [place], [place] Summary: Mother of pt (Kassandra) is at the bedside and reports she did receive the card of this worker and did not make contact. She reports that she is doing ok. She is in the room with lots of items and misc things around her. This worker talks with her as to notifying Keshia Villanueva, the [facility] worker of the pt's admission, process explained and that they are needing to know the current status of the pt. She reports that Keshia has called her but she did not call her back. She report that she may not have her cell phone number. She gives this worker her cell phone number to pass on to Keshia. Cell phone [phone]. She does not have any questions. This worker thanks her for visiting with her.
--- NOTE | 2019-04-23 15:21 | NUR ---
CM/SS: [facility] has accepted the pt for placement - pt should transfer there tomorrow.
[2019-04-23] MEDS: ENOXAPARIN 30 MG/0.3 ML (LOVENOX) SYR SC SCH (21:12)
[2019-04-23] MEDS: SIMvastatin 20 MG (ZOCOR) TAB PO SCH (21:12)
[2019-04-24] VITALS (30 sets, daily range): BP systolic 79–136; BP diastolic 44–82
--- NOTE | 2019-04-24 00:17 | NUR ---
OG residual checked at 2100, 150 ml noted. During pt repositioning, pt's head down momentarily, significant amount of yellow secretions came out of pt's mouth and nose. Pt cleaned, linens changed, oral and nasal passageways suctioned/cleaned at this time, tube feedings held at this time, OG back to low intermittent wall suction. Immediate 200 ml return into suction canister. Pt's rectal thermometer checked for placement, pt had small BM, pt now clean and dry.
[2019-04-24] MEDS: NOREPINEPHRINE 4 MG/250 ML 250 ML IV SCH ×5 (01:42→23:27)
[2019-04-24] MEDS: RT-ALBUTEROL/IPRATROPIUM 3 ML (DUONEB) VIAL INH SCH ×6 (02:08→21:49)
--- NOTE | 2019-04-24 02:40 | NUR ---
Lisandro hugger placed on pt d/t decreased temperature. Warm blankets attempted prior to lisandro hugger placement, in addition to multiple attempts at different methods of assessing temperature.
[2019-04-24 03:18] LABS: ABG BASE EXCESS -4.7 MMOL/L (-2.5-2.5); ABG OXYGEN SATURATION 96 % (94-100); ABG PCO2 27 MMHG (35-45); ABG PH 7.45 (7.37-7.43); ABG PO2 65 MMHG (79-93); ABG TCO2 20.1 MMOL/L (21.0-31.0); BASOPHILS % (AUTO) 0 % (0-10); EOSINOPHILS # (AUTO) 0.4 10^3/uL (0.0-0.3); EOSINOPHILS % (AUTO) 3 % (0-10); HEMATOCRIT 28 % (35-52); HEMOGLOBIN 9.5 G/DL (11.5-16.0); LYMPHOCYTES # (AUTO) 0.8 X 10^3 (1.0-4.0); LYMPHOCYTES % (AUTO) 6 % (12-44); MEAN CORPUSCULAR HEMOGLOBIN 30 PG (25-34); MEAN CORPUSCULAR HGB CONC 34 G/DL (32-36); MEAN CORPUSCULAR VOLUME 87 FL (80-99); MEAN PLATELET VOLUME 12.4 FL (7.4-10.4); MONOCYTES # (AUTO) 0.3 X 10^3 (0.0-1.0); MONOCYTES % (AUTO) 2 % (0-12); NEUTROPHILS # (AUTO) 11.4 X 10^3 (1.8-7.8); NEUTROPHILS % (AUTO) 88 % (42-75); PLATELET COUNT 127 10^3/uL (130-400); RED CELL DISTRIBUTION WIDTH 15.7 % (10.0-14.5); WHITE BLOOD COUNT 12.9 10^3/uL (4.3-11.0)
[2019-04-24 03:19] LABS: ALLENS TEST ART LINE; INSPIRED O2 30%; PATIENT TEMP 34.5; VENTILATOR YES
[2019-04-24 03:49] LABS: CALCIUM 6.9 MG/DL (8.5-10.1); CREATININE SERUM 1.64 MG/DL (0.60-1.30); MAGNESIUM 1.7 MG/DL (1.6-2.4); PHOSPHORUS 2.1 MG/DL (2.3-4.7); POTASSIUM 2.6 MMOL/L (3.6-5.0)
[2019-04-24] MEDS: PIPERACILLIN/TAZO 4.5 GM/NS 100 ML IV SCH ×6 (03:59→20:20)
[2019-04-24] MEDS: DEXMEDETOMIDINE IV SCH ×2 (04:31→15:07)
[2019-04-24] MEDS: PROPOFOL DRIP (ICU) 100 ML IV SCH ×3 (04:31→21:54)
[2019-04-24] MEDS: POTASSIUM CL 10MEQ/50ML IVPB 50 ML IV SCH ×5 (04:42→07:41)
[2019-04-24] MEDS: KCL 20 MEQ TAB (K-DUR) PO SCH (04:42)
[2019-04-24] MEDS: MAGNESIUM 1 GM/100 ML IVPB 100 ML IV SCH (04:42)
[2019-04-24] MEDS: inSUlin ASPART (NovoLOG) 1 UNIT/0.01 ML (CHARGE PER UNIT) SQ SCH ×4 (05:17→23:43)
--- NOTE | 2019-04-24 05:28 | Pulmonary Progress Note ---
Subjective Time Seen by a Provider: 05:26 Sepsis Event Evaluation Height, Weight, BMI Height: '" Weight: lbs. oz. kg; 28.00 BMI Method: Focused Exam Lactate Level 04/23/19 10:20: Lactic Acid Level 2.11*H 04/23/19 12:17: Lactic Acid Level 4.64*H 04/23/19 15:45: Lactic Acid Level 1.95 Exam Exam Vital Signs Date Time Temp Pulse Resp B/P (MAP) Pulse Ox O2 Delivery O2 Flow Rate FiO2 04/24/19 04:31 89 98/58 04/24/19 04:31 89 101/59 04/24/19 04:22 98 88/47 04/24/19 04:00 Mechanical Ventilator 21.00 04/24/19 04:00 90 22 107/51 (69) 97 Mechanical Ventilator 21.00 04/24/19 03:58 90 110/54 04/24/19 03:07 98 84/42 04/24/19 03:00 98 105/59 (74) 96 Mechanical Ventilator 21.00 04/24/19 02:38 90 108/57 04/24/19 02:08 98 Mechanical Ventilator 21 04/24/19 02:08 77 22 98 21 04/24/19 02:00 73 106/57 04/24/19 02:00 76 106/59 (75) 99 Mechanical Ventilator 21.00 04/24/19 01:48 84 113/59 04/24/19 01:42 88 73/49 04/24/19 01:00 85 80/44 (56) 99 Mechanical Ventilator 21.00 04/24/19 01:00 86 04/24/19 00:00 Mechanical Ventilator 30.00 04/24/19 00:00 89 96/50 (65) 100 Mechanical Ventilator 21.00 04/23/19 23:00 94 85/46 (59) 100 Mechanical Ventilator 21.00 04/23/19 22:06 98 Mechanical Ventilator 30 04/23/19 22:06 86 22 98 30 04/23/19 22:00 87 103/53 (70) 100 Mechanical Ventilator 21.00 04/23/19 21:38 88 93/49 04/23/19 21:14 82 91/47 04/23/19 21:00 34.5 78 27 103/52 (69) 100 Mechanical Ventilator 21.00 04/23/19 20:00 34.4 81 36 109/55 (73) 99 Mechanical Ventilator 21.00 04/23/19 20:00 Mechanical Ventilator 30.00 04/23/19 19:02 35.3 04/23/19 19:00 83 04/23/19 19:00 34.4 82 32 112/55 (74) 99 Mechanical Ventilator 21.00 04/23/19 18:09 98 Mechanical Ventilator 30 04/23/19 18:09 75 22 98 30 04/23/19 18:00 34.4 75 36 97/51 (66) 98 Mechanical Ventilator 21.00 04/23/19 17:38 96/50 04/23/19 17:00 34.5 80 22 94/50 (65) 98 Mechanical Ventilator 21.00 04/23/19 16:00 34.7 80 22 104/52 (69) 98 Mechanical Ventilator 21.00 04/23/19 16:00 95 Mechanical Ventilator 30 04/23/19 15:17 35.6 04/23/19 15:00 34.9 75 37 102/52 (69) 99 Mechanical Ventilator 21.00 04/23/19 14:55 73 22 99 30 04/23/19 14:00 35.1 75 39 102/52 (69) 99 Mechanical Ventilator 21.00 04/23/19 13:00 80 103/53 (70) 98 Mechanical Ventilator 21.00 04/23/19 12:45 80 04/23/19 12:12 35.9 04/23/19 12:00 96 Mechanical Ventilator 30 04/23/19 12:00 80 101/54 (70) 98 Mechanical Ventilator 21.00 04/23/19 11:00 85 22 105/56 (72) 97 Mechanical Ventilator 21.00 04/23/19 10:00 89 22 107/57 (74) 98 Mechanical Ventilator 21.00 04/23/19 09:00 91 21 112/56 (74) 97 Mechanical Ventilator 21.00 04/23/19 08:22 96 104/51 04/23/19 08:00 36.1 04/23/19 08:00 97 Mechanical Ventilator 30 04/23/19 08:00 98 21 103/53 (70) 98 Mechanical Ventilator 21.00 04/23/19 07:52 96 22 97 30 04/23/19 07:00 98 21 150/78 (102) 99 Mechanical Ventilator 21.00 04/23/19 07:00 96 04/23/19 06:00 100 22 150/73 (98) 96 Mechanical Ventilator 21.00 I & O 04/24/19 07:00 Intake Total 2194 ml Output Total 1275 ml Balance 919 ml Height & Weight Height: '" Weight: lbs. oz. kg; 28.00 BMI Method: General Appearance: Chronically ill, Other (intubated and sedated) HEENT: PERRL/EOMI, Moist Mucous Membranes; No Scleral Icterus (L), No Scleral Icterus (R) Neck: Supple, Limited Range of Motion Respiratory: Rhonci, Other (on vent) Cardiovascular: Regular Rate, Rhythm, No Murmur Capillary Refill: Less Than 3 Seconds Gastrointestinal: non tender, soft, abnormal bowel sounds (decreased) Extremity: Other Neurologic/Psychiatric: Other (sedated, appears comfortable) Skin: Normal Color, Warm/Dry Lymphatic: No Adenopathy Results Lab Laboratory Tests 04/23/19 02:18 04/24/19 03:07 Assessment/Plan Assessment/Plan Acute Respiratory Distress, P/F=314 -Intubated yesterday, sedated on Precedex and Propofol -s/p Bronchoscopy -HOLD LASIX PLEASE PNA with severe sepsis/ septic shock -- Pt has hx of MRSA -Zosyn and Zithromax -MRSA swab neg -On Levophed -Left radial PICC line placed yesterday -Urine negative for Legionella and Strep pneumo -Respiratory viral panel---pending UTI -UA positive, culture pending Hypokalemia, persistent -Replace Hypophosphatemia -Replete with Sodium Phos 30mg IV JO Acute on Chronic CHF -[facility] 04/20/2019 ECHO: EF 40-45% -[place] 12/2018 ECHO: EF 20% NSTEMI with CAD -Mildly elevated troponin, Cardiology following -ASA 81mg and Simvastatin 20mg Intellectual Disability DVT/GI ppx -Lovenox decreased to 30mg SQ given excessive nose bleed yesterday -Protonix 40mg IV KATE ROSARIO DO Apr 24, 2019 05:28
[2019-04-24] MEDS ORDERED: HYDROCORTISONE 100 MG/2 ML (Solu-CORTEF) VIAL ONE (05:53)
[2019-04-24] MEDS: D5 LR IV SOLUTION 1,000 ML IV SCH ×3 (05:55→22:41)
[2019-04-24] MEDS: HYDROCORTISONE 100 MG/2 ML (Solu-CORTEF) VIAL IV SCH ×3 (06:00→21:53)
--- NOTE | 2019-04-24 07:04 | Diagnostic Imaging Report ---
INDICATION: Sepsis. COMPARISON: 04/23/2019 FINDINGS: There is cardiomegaly. There is venous congestion. Lines and tubes are in satisfactory positions. No pleural effusion or pneumothorax. IMPRESSION: 1. Cardiomegaly and central pulmonary venous congestion which appears to have increased since the prior examination. 2. Lines and tubes remain in satisfactory positions. Dictated by: Dictated on workstation # [id number]
--- NOTE | 2019-04-24 08:04 | Physical Therapy Progress Note ---
Therapy Progress Note Patient dismissing to LTAC on this date per report. CINDY SELLERS PT Apr 24, 2019 08:04
[2019-04-24] MEDS: PANTOPRAZOLE 40 MG (PROTONIX) VIAL IV SCH (08:26)
[2019-04-24] MEDS: AZITHROMYCIN INJECTION 250 MG in NS (IVPB) 250 ML IV SCH (08:26)
[2019-04-24] MEDS: ASPIRIN 81 MG CHEW (CHILDREN'S ASA) PO SCH (08:45)
[2019-04-24] MEDS: TICAGRELOR 90 MG TABLET (BRILINTA) PO SCH ×2 (08:45→20:20)
[2019-04-24] MEDS ORDERED: POTASSIUM PHOSPHATE INJ 30 MM in NS (IVPB) 250 ML IV NR (09:00)
--- NOTE | 2019-04-24 09:02 | Progress Note - Hospitalist ---
Subjective HPI/CC On Admission Date Seen by Provider: Apr 24, 2019 Time Seen by Provider: 08:58 Pt is a 54yoCF with a PMH of intellectual disability, CAD s/p recent stent placement in [place], CHF, HTN who presented to the ER due to fever. She is unable to provide any history. Her mother is at bedside and states that she has been sick for the last week and was seen at multiple clinics regarding this and was told it was viral. Her fever continued and yesterday she appeared worse to her mom who brought her to the ER for evaluation and she was found to have septic schok due to pneumonia. She was admitted to the ICU for pressors and IV abx. She has improved over night and is now off pressors. Patient herself has no complaints and happily tells me about her 6 brothers and 1 sister. Subjective/Events-last exam Pt remains intubated and sedated. No ROS possible. Mom at bedside with no complaints. Discussed plan for potential transfer and she will discuss with her son (an ER physician in ) about preferred hospital. Focused Exam Lactate Level 04/23/19 10:20: Lactic Acid Level 2.11*H 04/23/19 12:17: Lactic Acid Level 4.64*H 04/23/19 15:45: Lactic Acid Level 1.95 Objective Exam Vital Signs Vital Signs Date Time Temp Pulse Resp B/P (MAP) Pulse Ox O2 Delivery O2 Flow Rate FiO2 04/24/19 08:49 106 99/55 04/24/19 08:00 36.4 04/24/19 07:00 35 97 Mechanical Ventilator 21.00 04/24/19 06:27 21 Capillary Refill : Less Than 3 Seconds General Appearance: Chronically ill, Other (intubated and sedated) Respiratory: Rhonci, Other (on vent) Cardiovascular: No Murmur, Tachycardia Gastrointestinal: Normal Bowel Sounds, Non Tender, Soft Extremity: No Calf Tenderness, Pedal Edema Neurologic/Psychiatric: Other (sedated, resting comfortably) Results/Procedures Lab Laboratory Tests 04/24/19 03:07 Patient resulted labs reviewed. Imaging: Reviewed Imaging Report Assessment/Plan Assessment and Plan Assess & Plan/Chief Complaint Septic Shock RLL Pneumonia Acute Hypercapnic and Hypoxemic Respiratory Failure ARDS Intubated 04/21 Currently on levophed Pulm consulted, appreciate recs Cultures with NGTD, Flu negative Strep pna and legionella antigens negative Continue Zosyn, Azithro COVID19 testing negative CAD CHF Elevated troponin Recent stent placed in December Remains on ASA and Plavix Cardiology consulted, appreciate recs JO hypokalemia Creatinine improved UOP remains adequate, no acidosis Replace potassium per protocol Anemia -stable Likely dilutional/iatrogenic trend Thrombocytopenia Mild, trend DVT ppx: Lovenox Dispo: Discussed with mom. Will likely need transfer to tertiary center due to lack of counseling case manager on site next week and reported long wait times for transfers. Hopeful to initiate transfer as soon as possible once family elects hospital. Critical Care Critically Ill Patient Diagnosis/Problems Diagnosis/Problems (1) JO (acute kidney injury) Status: Acute (2) CAD (coronary artery disease) Qualifiers: Coronary Disease-Associated Artery/Lesion type: [place] artery [place] vs. transplanted heart: [place] heart Associated angina: without angina Qualified Codes: I25.10 - Atherosclerotic heart disease of [place] coronary artery without angina pectoris (3) Essential (primary) hypertension Status: Chronic (4) Normocytic anemia Status: Chronic (5) Thrombocytopenia Status: Acute (6) ARDS (adult respiratory distress syndrome) Status: Acute (7) Acute respiratory failure Status: Acute Qualifiers: Respiratory failure complication: hypoxia and hypercapnia Qualified Codes: J96.01 - Acute respiratory failure with hypoxia; J96.02 - Acute respiratory failure with hypercapnia (8) Intellectual disability Status: Chronic (9) Right lower lobe pneumonia Status: Acute Qualifiers: Pneumonia type: due to unspecified organism Qualified Codes: J18.1 - Lobar pneumonia, unspecified organism (10) Septic shock Status: Acute Clinical Quality Measures DVT/VTE Risk/Contraindication: Risk Factor Score Per Nursin RFS Level Per Nursing on Admit: 4+=Very High JAMISON DICK MD Apr 24, 2019 09:02
--- NOTE | 2019-04-24 09:37 | Cardiology Progress Note ---
Subjective Date Seen by Provider: Apr 24, 2019 Time Seen by Provider: 09:32 Subjective/Events-last exam patient is sedated and intubated, borderline hypotensive Review of Systems General: Other (unable to provide review of systems) Focused Exam Lactate Level 04/23/19 10:20: Lactic Acid Level 2.11*H 04/23/19 12:17: Lactic Acid Level 4.64*H 04/23/19 15:45: Lactic Acid Level 1.95 Objective-Cardiology Exam Last Set of Vital Signs Vital Signs 04/24/19 04/24/19 04/24/19 04/24/19 06:27 07:00 08:00 08:49 Temp 36.4 Pulse 106 Resp 35 B/P (MAP) 99/55 Pulse Ox 97 O2 Delivery Mechanical Ventilator O2 Flow Rate 21.00 FiO2 21 Capillary Refill : Less Than 3 Seconds I&O Intake and Output 04/24/19 00:00 Intake Total 3085 ml Output Total 1125 ml Balance 1960 ml IV Total 2820 ml Tube Feeding 90 ml Other 175 ml Output Urine Total 1125 ml General: Other (Sedated and intubated) HEENT: Atraumatic, PERRLA Neck: Supple, No JVD Lungs: Other (Bilateral rhonchi) Heart: Regular Rate, Normal S1, Normal S2 Abdomen: Normal Bowel Sounds Extremities: No Clubbing, No Cyanosis Skin: No Rashes, No Breakdown Neuro: Other (Sedated and intubated) Psych/Mental Status: Other (Sedated and intubated) Results Lab Laboratory Tests 04/24/19 03:07 A/P-Cardiology Admission Diagnosis Sepsis Septic shock Pneumonia Type II NM Assessment/Plan Sepsis, septic shock, maintained on pressors, still borderline hypotensive. having diffuse edema with IV fluid. Continue to monitor and continue supportive care Acute respiratory failure, ventilator dependent.bilateral pulmonary infiltrate. Managed by Dr. Shepherd Pneumonia, receiving antibiotic, ventilator dependent, managed by Dr. Spencer Congestive heart failure, acute on chronic left ventricular systolic dysfunction, previously her ejection fraction was 20 percent, on the last echocardiogram on April 20, 2019 showing ejection fraction 40-45 percent with hypokinesia at the apical anterior septum, mild mitral regurgitation, PA pr essure 30 mmHg.will need to start aggressive diuresis once her blood pressure is more stable Coronary artery disease, cardiac catheterization done in December 2018 in [facility] reported chronic total occlusion of the left main arising from the right coronary cusp with no other left sided vessel could be identified, 80 percent ostial right coronary artery stenosis with stenting using Synergy 3 x 20 mm, currently elevated troponin probably type II [place] secondary to hypoxemia and hypotension, need to restart aspirin once patient can't tolerate oral medication. Acute renal failure, improving slowly, monitor renal function History of VSD and repair as a child Intolerance to beta blockers due to hypotension per family report Clinical Quality Measures DVT/VTE Risk/Contraindication: Risk Factor Score Per Nursin RFS Level Per Nursing on Admit: 4+=Very High FLORENTIN MILLIGAN MD Apr 24, 2019 09:37
[2019-04-24] MEDS ORDERED: LACTATED RINGERS 1,000 ML IV ONE (10:13)
--- NOTE | 2019-04-24 10:21 | Occ Therapy Progress Note ---
Therapy Progress Note Pt remains intubated and sedated. Will continue to monitor pt status and initiate therapy when pt able to actively participate. ELISE MÉNDEZ OT Apr 24, 2019 10:21
[2019-04-24] MEDS ORDERED: LACTATED RINGERS 1,000 ML IV SCH (10:30)
--- NOTE | 2019-04-24 11:18 | NUR ---
1000 DR ROSARIO NOTIFIED OF PT'S DECREASED URINE OUTPUT NEW ORDERS RECEIVED TO GIVE 1 LITER BOLUS.
[2019-04-24] MEDS: ACETAMINOPHEN 500 MG TAB (TYLENOL) PO PRN (13:23)
--- NOTE | 2019-04-24 13:29 | NUR ---
DR DICK NOTIFIED OF PT'S TEMP 38.6 C RECTAL. THIS RN NOTICED A ONE TIME ORDER FOR TYLENOL. ORDERS RECEIVED TO CHANGE TYLENOL FREQUENCY TO EVERY 8 HRS PRN TEMP. SEE ORDER HX.
[2019-04-24] MEDS ORDERED: ACETAMINOPHEN 500 MG TAB (TYLENOL) PO PRN (13:30)
--- NOTE | 2019-04-24 14:16 | NUR ---
DR ROSARIO NOTIFIED OF PT'S URINE OUTPUT OF 75ML FOR THE LAST 4 HOURS. ORDERS RECEIVED TO INCREASE IVF TO 150ML AND CONTINUE TO MONITOR FOR NOW. ORDERS ENTERED.
[2019-04-24] MEDS: ANIDULAFUNGIN INJECTION 100 MG in NS (IVPB) 100 ML IV SCH (18:15)
[2019-04-24] MEDS: ENOXAPARIN 30 MG/0.3 ML (LOVENOX) SYR SC SCH (20:20)
[2019-04-24] MEDS: SIMvastatin 20 MG (ZOCOR) TAB PO SCH (20:20)
[2019-04-25] VITALS (23 sets, daily range): BP systolic 92–124; BP diastolic 50–67
[2019-04-25] MEDS: RT-ALBUTEROL/IPRATROPIUM 3 ML (DUONEB) VIAL INH SCH ×3 (02:03→18:23)
[2019-04-25] MEDS: DEXMEDETOMIDINE IV SCH ×2 (02:04→10:27)
[2019-04-25 02:52] LABS: BASOPHILS # (AUTO) 0.1 10^3/uL (0.0-0.1); BASOPHILS % (AUTO) 0 % (0-10); EOSINOPHILS % (AUTO) 0 % (0-10); HEMATOCRIT 26 % (35-52); HEMOGLOBIN 8.8 G/DL (11.5-16.0); LYMPHOCYTES # (AUTO) 2.8 X 10^3 (1.0-4.0); LYMPHOCYTES % (AUTO) 11 % (12-44); MEAN CORPUSCULAR HEMOGLOBIN 30 PG (25-34); MEAN CORPUSCULAR HGB CONC 34 G/DL (32-36); MEAN CORPUSCULAR VOLUME 87 FL (80-99); MEAN PLATELET VOLUME 12.7 FL (7.4-10.4); MONOCYTES # (AUTO) 0.5 X 10^3 (0.0-1.0); MONOCYTES % (AUTO) 2 % (0-12); NEUTROPHILS # (AUTO) 21.9 X 10^3 (1.8-7.8); NEUTROPHILS % (AUTO) 87 % (42-75); PLATELET COUNT 165 10^3/uL (130-400); RED CELL DISTRIBUTION WIDTH 15.4 % (10.0-14.5); WHITE BLOOD COUNT 25.3 10^3/uL (4.3-11.0)
[2019-04-25 02:53] LABS: ABG BASE EXCESS -5.5 MMOL/L (-2.5-2.5); ABG OXYGEN SATURATION 93 % (94-100); ABG PCO2 30 MMHG (35-45); ABG PO2 70 MMHG (79-93); ABG TCO2 19.2 MMOL/L (21.0-31.0)
[2019-04-25 02:54] LABS: ALLENS TEST ART LINE; INSPIRED O2 21%; PATIENT TEMP 37.4; VENTILATOR YES
[2019-04-25] MEDS: PIPERACILLIN/TAZO 4.5 GM/NS 100 ML IV SCH ×4 (03:02→12:31)
[2019-04-25 03:16] LABS: ANISOCYTOSIS SLIGHT; BAND NEUTROPHILS 3 %; BASOPHILS % (MANUAL) 0 %; EOSINOPHILS % (MANUAL) 1 %; LYMPHOCYTES % (MANUAL) 10 %; METAMYELOCYTES % 1 %; MONOCYTES % (MANUAL) 0 %; NEUTROPHILS % (MANUAL) 81 %; POLYCHROMASIA SLIGHT; REACTIVE LYMPHOCYTES 4 %; TARGET CELLS SLIGHT
[2019-04-25 03:27] LABS: CALCIUM 6.9 MG/DL (8.5-10.1); CREATININE SERUM 1.98 MG/DL (0.60-1.30); MAGNESIUM 1.6 MG/DL (1.6-2.4); POTASSIUM 4.2 MMOL/L (3.6-5.0)
--- NOTE | 2019-04-25 04:23 | Pulmonary Progress Note ---
Subjective Date Seen by a Provider: Apr 25, 2019 Time Seen by a Provider: 04:21 Subjective/Events-last exam Pt is sedated on vent. Sepsis Event Evaluation Height, Weight, BMI Height: '" Weight: lbs. oz. kg; 28.00 BMI Method: Focused Exam Lactate Level 04/23/19 10:20: Lactic Acid Level 2.11*H 04/23/19 12:17: Lactic Acid Level 4.64*H 04/23/19 15:45: Lactic Acid Level 1.95 Exam Exam Vital Signs Date Time Temp Pulse Resp B/P (MAP) Pulse Ox O2 Delivery O2 Flow Rate FiO2 04/25/19 04:00 37.2 89 24 110/60 (77) 94 Mechanical Ventilator 21.00 04/25/19 03:00 37.3 97 24 111/61 (78) 94 Mechanical Ventilator 21.00 04/25/19 02:04 82 04/25/19 02:03 84 24 95 21 04/25/19 02:00 37.5 84 24 110/60 (77) 95 Mechanical Ventilator 21.00 04/25/19 01:00 37.6 85 24 109/60 (76) 95 Mechanical Ventilator 21.00 04/25/19 01:00 85 04/25/19 00:00 37.7 91 25 109/60 (76) 95 Mechanical Ventilator 21.00 04/24/19 23:49 Mechanical Ventilator 21.00 04/24/19 23:27 98 122/65 04/24/19 23:00 37.9 96 27 121/65 (83) 96 Mechanical Ventilator 21.00 04/24/19 22:40 102 113/65 04/24/19 22:00 38.1 94 26 116/62 (80) 96 Mechanical Ventilator 21.00 04/24/19 21:54 88 125/65 04/24/19 21:53 88 125/65 04/24/19 21:51 88 27 96 21 04/24/19 21:00 92 130/69 04/24/19 21:00 38.1 92 27 132/68 (89) 96 Mechanical Ventilator 21.00 04/24/19 20:21 95 135/70 04/24/19 20:00 38.2 96 27 134/69 (90) 97 Mechanical Ventilator 21.00 04/24/19 20:00 Mechanical Ventilator 21.00 04/24/19 19:28 105 134/69 04/24/19 19:00 38.2 101 28 134/70 (91) 97 Mechanical Ventilator 21.00 04/24/19 19:00 101 04/24/19 18:24 90 28 97 21 04/24/19 18:00 38.2 92 28 136/69 (91) 97 Mechanical Ventilator 21.00 04/24/19 17:00 38.3 93 27 133/66 (88) 97 Mechanical Ventilator 21.00 04/24/19 16:24 98 102/57 04/24/19 16:16 37.8 04/24/19 16:15 Mechanical Ventilator 21.00 04/24/19 16:00 38.4 98 28 127/65 (85) 96 Mechanical Ventilator 21.00 04/24/19 15:07 91 118/61 04/24/19 15:07 91 118/61 04/24/19 15:00 38.4 105 28 121/64 (83) 96 Mechanical Ventilator 21.00 04/24/19 14:07 91 30 96 21 04/24/19 14:00 38.6 100 26 118/60 (79) 94 Mechanical Ventilator 21.00 04/24/19 13:23 38.6 04/24/19 13:00 100 04/24/19 13:00 38.4 93 28 113/59 (77) 95 Mechanical Ventilator 21.00 04/24/19 12:27 Mechanical Ventilator 21.00 04/24/19 12:19 110 79/52 04/24/19 12:00 38.5 108 36 119/65 (83) 96 Mechanical Ventilator 21.00 04/24/19 11:00 38.4 107 35 119/63 (81) 96 Mechanical Ventilator 21.00 04/24/19 10:00 38.2 113 36 100/57 (71) 95 Mechanical Ventilator 21.00 04/24/19 09:30 110 38 95 21 04/24/19 09:00 37.8 105 32 97/52 (67) 95 Mechanical Ventilator 21.00 04/24/19 08:49 106 99/55 04/24/19 08:00 Mechanical Ventilator 21.00 04/24/19 08:00 36.4 04/24/19 08:00 37.1 101 36 100/57 (71) 94 Mechanical Ventilator 21.00 04/24/19 07:00 106 3/13/20 07:00 107 35 100/57 (71) 97 Mechanical Ventilator 21.00 04/24/19 06:29 98 87/50 04/24/19 06:27 101 32 96 21 04/24/19 06:26 98 74/38 04/24/19 06:23 100 85/46 04/24/19 06:20 101 74/40 04/24/19 06:17 102 65/35 04/24/19 06:11 98 82/46 04/24/19 06:02 105 134/76 04/24/19 06:00 97 38 135/75 (95) 97 Mechanical Ventilator 21.00 04/24/19 05:00 93 22 101/59 (73) 96 Mechanical Ventilator 21.00 04/24/19 04:31 89 98/58 04/24/19 04:31 89 101/59 04/24/19 04:22 98 88/47 I & O 04/25/19 07:00 Intake Total 2955 ml Output Total 830 ml Balance 2125 ml Height & Weight Height: '" Weight: lbs. oz. kg; 28.00 BMI Method: General Appearance: Chronically ill, Other (intubated and sedated) HEENT: PERRL/EOMI, Moist Mucous Membranes; No Scleral Icterus (L), No Scleral Icterus (R) Neck: Supple, Limited Range of Motion Respiratory: Rhonci, Other (on vent) Cardiovascular: No Murmur, Tachycardia Capillary Refill: Less Than 3 Seconds Gastrointestinal: non tender, soft, abnormal bowel sounds (decreased) Extremity: No Calf Tenderness, Pedal Edema Neurologic/Psychiatric: Other (sedated, resting comfortably) Skin: Normal Color, Warm/Dry Lymphatic: No Adenopathy Results Lab Laboratory Tests 04/24/19 03:07 04/25/19 02:45 Assessment/Plan Assessment/Plan Acute Respiratory Distress, P/F=314 -Continue ventilator therapy -Decrease PEEP to 8 -Sedation vacation s/p bronchoscopy PNA with severe sepsis/ septic shock -- Pt has hx of MRSA -Zosyn and Zithromax -MRSA swab is negative -Worsening leukocyosis - probably secondary to Solucortef -Repeat procalcitonin -Eraxis -MRSA swab neg -On Levophed-- wean as tolerated -Solucortef -Left PICC line -Urine negative for Legionella and Strep pneumo -Respiratory viral panel---pending UTI -UA positive, culture pending Nonanion gapped metabolic acidosis -IVF -- UO has improved since increasing IVF to 150 JO Acute on Chronic CHF -[facility] 04/20/2019 ECHO: EF 40-45% -[place] 12/2018 ECHO: EF 20% NSTEMI with CAD -Mildly elevated troponin, Cardiology following -ASA 81mg and Simvastatin 20mg Intellectual Disability DVT/GI ppx -Lovenox decreased to 30mg SQ given excessive nose bleed yesterday -Protonix 40mg IV KATE ROSARIO DO Apr 25, 2019 04:23
[2019-04-25] MEDS ORDERED: SODIUM BICARB 8.4% 50 MEQ/50 ML VIAL IV ONE (04:30)
[2019-04-25] MEDS ORDERED: SODIUM BICARB 8.4% 50 MEQ/50 ML VIAL ONE (04:34)
--- NOTE | 2019-04-25 04:40 | NUR ---
found vent on peep of 8, rt was not notified of change and found vent changed.
[2019-04-25] MEDS ORDERED: morphine INJ 4 MG/ML 1 ML (VIAL/SYRINGE) IVP PRN (04:45)
[2019-04-25] MEDS: PROPOFOL DRIP (ICU) 100 ML IV SCH ×3 (04:47→16:15)
[2019-04-25] MEDS: MAGNESIUM 1 GM/100 ML IVPB 100 ML IV SCH ×3 (04:47→05:50)
[2019-04-25] MEDS: KCL 20 MEQ TAB (K-DUR) PO SCH (05:12)
[2019-04-25] MEDS: POTASSIUM CL 10MEQ/50ML IVPB 50 ML IV SCH (05:12)
[2019-04-25] MEDS: D5 LR IV SOLUTION 1,000 ML IV SCH ×3 (05:28→17:45)
[2019-04-25] MEDS: HYDROCORTISONE 100 MG/2 ML (Solu-CORTEF) VIAL IV SCH ×2 (05:28→14:08)
[2019-04-25] MEDS: inSUlin ASPART (NovoLOG) 1 UNIT/0.01 ML (CHARGE PER UNIT) SQ SCH ×3 (05:29→17:45)
--- NOTE | 2019-04-25 07:24 | Diagnostic Imaging Report ---
Portable erect AP chest at 317 hours. INDICATION: Respiratory distress. This exam is of limited diagnostic value as the study is taken in expiration. The cardiomegaly and the alveolar/interstitial pulmonary infiltrates seen on the prior study of 04/24/2019 are again evident and do not seem to have changed significantly. The supportive tubes and lines seen previously are also unchanged when compared to the prior exam. The distal most portion of the ET tube is not well-visualized. The mediastinum is not widened. The osseous structures are intact. IMPRESSION: Allowing for expiratory phase of this exam, there does not appear to have been any significant change when compared to the previous study. A follow-up exam would be recommended for continued evaluation. Dictated by: Dictated on workstation # [id number]
[2019-04-25] MEDS: ASPIRIN 81 MG CHEW (CHILDREN'S ASA) PO SCH (07:59)
[2019-04-25] MEDS: AZITHROMYCIN INJECTION 250 MG in NS (IVPB) 250 ML IV SCH (07:59)
[2019-04-25] MEDS: PANTOPRAZOLE 40 MG (PROTONIX) VIAL IV SCH (07:59)
[2019-04-25] MEDS: TICAGRELOR 90 MG TABLET (BRILINTA) PO SCH (07:59)
--- NOTE | 2019-04-25 10:02 | Cardiology Progress Note ---
Subjective Date Seen by Provider: Apr 25, 2019 Time Seen by Provider: 10:00 Subjective/Events-last exam patient is sedated a Review of Systems General: Other (Unable to provide review of systems) Focused Exam Lactate Level 04/23/19 12:17: Lactic Acid Level 4.64*H 04/23/19 15:45: Lactic Acid Level 1.95 04/25/19 04:56: Lactic Acid Level 1.80 Objective-Cardiology Exam Last Set of Vital Signs Vital Signs 04/25/19 04/25/19 06:23 09:00 Temp 36.4 Pulse 83 Resp 21 B/P (MAP) 103/60 (74) Pulse Ox 95 O2 Delivery Mechanical Ventilator O2 Flow Rate 21.00 FiO2 21 Capillary Refill : Less Than 3 Seconds I&O Intake and Output 04/25/19 00:00 Intake Total 4264 ml Output Total 1005 ml Balance 3259 ml Intake Oral 0 ml IV Total 4035 ml Tube Feeding 34 ml Other 195 ml Output Urine Total 605 ml Gastric Drainage Total 400 ml General: Other (Sedated and intubated) HEENT: PERRLA Neck: Supple, No JVD Lungs: Other (Bilateral rhonchi) Heart: Regular Rate, Normal S1, Normal S2 Abdomen: Normal Bowel Sounds Extremities: No Clubbing, No Cyanosis, Other (Upper and lower extremities edema) Skin: No Rashes Neuro: Other (Sedated and intubated) Psych/Mental Status: Other (Sedated and intubated) Results Lab Laboratory Tests 04/25/19 02:45 A/P-Cardiology Admission Diagnosis Sepsis Septic shock Pneumonia Type II [place] Assessment/Plan Sepsis, septic shock, maintained on pressors, still borderline hypotensive. having diffuse edema with IV fluid. Continue to monitor and continue supportive care Acute respiratory failure, ventilator dependent.bilateral pulmonary infiltrate. Managed by Dr. Spencer Pneumonia, receiving antibiotic, ventilator dependent, managed by Dr. Spencer Congestive heart failure, acute on chronic left ventricular systolic dysfunction, previously her ejection fraction was 20 percent, on the last echocardiogram on April 20, 2019 showing ejection fraction 40-45 percent with hypokinesia at the apical anterior septum, mild mitral regurgitation, PA pressure 30 mmHg. I will start Lasix and evaluate response Coronary artery disease, cardiac catheterization done in December 2018 in [facility] reported chronic total occlusion of the left main arising from the right coronary cusp with no other left sided vessel could be identified, 80 percent ostial right coronary artery stenosis with stenting using Synergy 3 x 20 mm, currently elevated troponin probably type II [place] secondary to hypoxemia and hypotension, need to restart aspirin once patient can tolerate oral medication. Acute renal failure, improving slowly, monitor renal function History of VSD and repair as a child Intolerance to beta blockers due to hypotension per family report Clinical Quality Measures DVT/VTE Risk/Contraindication: Risk Factor Score Per Nursin RFS Level Per Nursing on Admit: 4+=Very High FLORENTIN MILLIGAN MD Apr 25, 2019 10:02
[2019-04-25] MEDS ORDERED: FUROSEMIDE 40 MG/4 ML INJ (LASIX) IVP NR (10:15)
[2019-04-25] MEDS: ANIDULAFUNGIN INJECTION 100 MG in NS (IVPB) 100 ML IV SCH (17:45)
[2019-04-27 13:56] LABS: PARAINFLU 1 PCR Not Detected (Not Detected); PARAINFLU 2 PCR Not Detected (Not Detected); RSV PCR TEST Not Detected (Not Detected)
== END 2019-04-25 19:17 | disposition short-term general hospital (02) | DRG 871 ==
LOC: EDUNIT# 12:00 → ER 12:01 → ICU 15:38
PROVIDERS: ADMIT Internal Medicine; ATTEND Internal Medicine
PROC: 05H533Z Insertion of Infusion Device into Right Subclavian Vein, Percutaneous Approach (ICD-10-PCS; principal; 2019-04-19)
PROC: 0BH17EZ Insertion of Endotracheal Airway into Trachea, Via Natural or Artificial Opening (ICD-10-PCS; 2019-04-22)
PROC: 5A1945Z Respiratory Ventilation, 24-96 Consecutive Hours (ICD-10-PCS; 2019-04-22)
PROC: 0B978ZZ Drainage of Left Main Bronchus, Via Natural or Artificial Opening Endoscopic (ICD-10-PCS; 2019-04-23)
PROC: 0B938ZZ Drainage of Right Main Bronchus, Via Natural or Artificial Opening Endoscopic (ICD-10-PCS; 2019-04-23)
DX: A41.9 Sepsis, unspecified organism (principal); R65.21 Severe sepsis with septic shock; J18.9 Pneumonia, unspecified organism; I21.4 Non-ST elevation (NSTEMI) myocardial infarction; I25.10 Atherosclerotic heart disease of native coronary artery without angina pectoris; I25.2 Old myocardial infarction; D64.9 Anemia, unspecified; I87.2 Venous insufficiency (chronic) (peripheral); E86.9 Volume depletion, unspecified; F79 Unspecified intellectual disabilities; R11.2 Nausea with vomiting, unspecified; E78.00 Pure hypercholesterolemia, unspecified; Z86.14 Personal history of Methicillin resistant Staphylococcus aureus infection; Z95.1 Presence of aortocoronary bypass graft; Z87.74 Personal history of (corrected) congenital malformations of heart and circulatory system; Z90.710 Acquired absence of both cervix and uterus
CPT/HCPCS: 36415; 36600; 51702; 71045; 80048; 80053; 81000; 82805; 82962; 83605; 83735; 83880; 84100; 84145; 84478; 84484; 85007; 85025; 85027; 85610; 85730; 87015; 87040; 87070; 87081; 87088; 87101; 87106; 87116; 87205; 87206; 87449; 87631; 87804; 87899; 93005; 93041; 93306; 93970; 94002; 94003; 94640; 94660; 94799